=== PATIENT | female | born 1935 | race Caucasian/White ===

== ENCOUNTER 2018-01-01 12:45 | Inpatient (IN) ==
--- NOTE | 2018-01-01 13:56 | Emergency Department Note ---
Disposition Clinical Impression: GABY (acute kidney injury), Elevated troponin UTI (urinary tract infection) Qualifiers: Urinary tract infection type: site unspecified Hematuria presence: without hematuria Qualified Code(s): N39.0 - Urinary tract infection, site not specified Disposition: Admitted As Inpatient Condition: Good Referrals: Casi Smalls CNP [Primary Care Provider] - Forms: ED Satisfaction Letter General Adult HPI - General Chief complaint: ED Fall Stated complaint: bradycardia Time Seen by Provider: 01/01/18 13:40 Source: EMS Limitations: physical limitation Nursing Notes Reviewed: Yes Vital Signs Reviewed: Yes - History of Present Illness HPI Narrative: Patient presents today for evaluation of multiple complaints. She states that her home health aide told her that her vital signs were low. Her heart rate was in the 50s. Her blood pressure was systolically 112 and her pulse ox was in the mid 90s. The patient has recently been undergoing several different things she describes vomiting over the weekend which is now resolved. She described going to urgent care for a lesion on her finger which she was prescribed antibiotics as well as anti-inflammatories for. She states these symptoms have all resolved. She did have an episode of sliding down her bed onto her knees. There is no evidence of trauma. She did not hit her head she did not lose consciousness and she does not believe anything is broken or injured. There is no objective evidence of injury or need for further investigation. The patient states that she thought she had finally started feeling better but does not understand why her numbers are lower. She denies fevers or chills or chest pain or shortness of breath or abdominal pain and has not had any other episodes of vomiting. She states she is hungry and would like to eat. She has not had an increased swelling in her legs or any other signs of rash or infection. Pain Scale: 0 - Related Data Home Medications Medication Instructions Recorded Confirmed Clopidogrel [Plavix] 75 mg PO DAILY 07/03/16 07/03/16 Diltiazem HCl [Diltiazem ER] 120 mg PO 07/03/16 Furosemide [Lasix] 40 mg PO BID 07/03/16 07/03/16 Gabapentin [Neurontin] 100 mg PO BID 07/03/16 07/03/16 Insulin Glargine,Hum.rec.anlog 100 unit SQ 07/03/16 [Lantus Solostar] Levothyroxine [Synthroid] 25 mcg PO 30 07/03/16 07/03/16 Metoprolol [Lopressor] 50 mg PO BID 07/03/16 07/03/16 Timolol Maleate 0.25% [Timolol 1 drop RIGHT EYE BID 07/03/16 07/03/16 Maleate 0.25%] Ubidecarenone/Vitamin E [Co Q-10 1 each PO 07/03/16 50 mg Softgel] Previous Rx's Medication Instructions Recorded Hydrocodone/Acetaminophen [[place] 1 tab PO Q4H PRN #15 tab 07/03/16 5-325 Tablet] predniSONE [PredniSONE] 20 mg PO BIDWM #10 tablet 07/03/16 Allergies Allergy/AdvReac Type Severity Reaction Status Date / Time No Known Allergies Allergy Verified 07/03/16 12:26 Past Medical History - Past Medical History Medical history: Reports: cancer, diabetes, hypertension, myocardial infarction , renal disease Surgical history: Reports: cancer surgery, coronary bypass (CABG) Psychiatric history: Reports: no psych history 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 The patient also has acute kidney injury with doubling of her creatinine. GFR is down to 9. Patient initially did not want to stay due to the severity of her condition she is agreeable to fluids, antibiotics and admission. Hospitalist will be consult. Patient did have an elevated troponin but EKG does not show any specific signs for ACS and the patient has not had any chest pain. Aspirin will be given. - Consultations Consultation #1: Discussed with hospitalist. Patient accepted for admission. Vital Signs Temperature 97.2 F L 01/01/18 12:56 Pulse Rate 54 01/01/18 12:56 Respiratory Rate 16 01/01/18 12:56 Blood Pressure 135/48 01/01/18 12:56 O2 Sat by Pulse Oximetry 94 01/01/18 12:56 Temperature 97.2 F L 01/01/18 12:56 Pulse Rate 53 01/01/18 14:45 Respiratory Rate 16 01/01/18 14:45 Blood Pressure 134/75 01/01/18 14:45 O2 Sat by Pulse Oximetry 98 01/01/18 14:45 Oxygen Delivery Oxygen Delivery Room Air Medical Decision Making - Medical Records Medical records reviewed: Yes I reviewed the patient's medical records. - Lab Data Lab results reviewed: Yes I reviewed the patient's lab results. Result diagrams: 01/01/18 14:25 01/01/18 14:25 Lab Results 01/01/18 01/01/18 01/01/18 Range/Units 14:13 14:25 14:25 WBC 16.2 H (4.3-11.1) K/mcL RBC 3.79 L (3.82-4.97) M/mcL Hgb 11.0 L (11.5-15.4) g/dL Hct 33.3 L (35.3-44.9) % MCV 87.9 (83.0-100.0) fL MCH 29.0 (28.0-33.3) pg MCHC 33.0 (31.6-35.5) g/dL RDW 13.0 (11.5-14.5) % Plt Count 258 (140-400) K/mcL MPV 10.5 (9.4-12.4) fL Immature Gran % 0.4 (0-4) % Seg Neutrophils % 85.9 % Lymphocytes % 6.1 % Monocytes % 6.5 % Eosinophils % 0.9 % Basophils % 0.2 % Neutrophils # 13.9 H (1.6-8.9) K/mcL Lymphocytes # 1.0 (0.6-4.6) K/mcL Monocytes # 1.1 (0.0-1.3) K/mcL Eosinophils # 0.2 (0.0-0.6) K/mcL Basophils # 0.0 (0.0-0.2) K/mcL Sodium 133 L (136-145) mEq/L Potassium 4.8 (3.5-5.1) mEq/L Chloride 98 (98-107) mEq/L Carbon Dioxide 22 L (23-29) mEq/L BUN 105 H (8-23) mg/dL Creatinine 4.69 H (0.60-1.20) mg/dL Est GFR ( Amer) 11 L (> 60) Est GFR (Non-Af Amer) 9 L (> 60) BUN/Creatinine Ratio 22 (6-26) Glucose 176 H (70-105) mg/dL Calculated Osmolality 313 H (280-300) Calcium 9.5 (8.6-10.3) mg/dL Magnesium 2.3 (1.6-2.6) mg/dL Troponin I 0.07 H* (< 0.04) ng/mL TSH 1.503 (0.340-5.600) mcIU/mL Urine Color Dark Yellow (Yellow) Urine Clarity Cloudy A (Clear) Urine pH 5.5 (5.0-8.0) pH Units Ur Specific [place] 1.019 (1.010-1.025) Urine Protein Negative (Neg-Trace) mg/dL Urine Glucose (UA) Normal (Normal) mg/dL Urine Ketones Negative (Negative) mg/dL Urine Blood Negative (Negative) Urine Nitrite Negative (Negative) Urine Bilirubin Moderate H (Negative) Urine Urobilinogen Normal (Normal) mg/dL Ur Leukocyte Esterase Large H (Negative) Urine Microscopic RBC 0-3 (0-3) per hpf Urine Microscopic WBC TNTC H (0-3) per hpf Ur Squamous Epith Cells Many H (None-Few) per lpf Urine Bacteria Moderate H (None-Few) per hpf Hyaline Casts Few (None-Few) per lpf Ur Culture Indicated? NO. A (NO) - Radiology Data Radiology results reviewed: Yes I reviewed the patient's radiology results. - EKG Data EKG #1 EKG attestation: Yes I reviewed and interpreted this EKG. EKG results narrative: EKG shows sinus bradycardia with ventricular rate of 53. MD interval 191. QRS 131. QTC 405. Patient has no significant ST elevations or depressions. No previous EKG for comparison.
[2018-01-01 14:34] LABS: Basophils % 0.2 %; Eosinophils # 0.2 K/mcL (0.0-0.6); Eosinophils % 0.9 %; Hematocrit 33.3 % (35.3-44.9); Immature Granulocytes % 0.4 % (0-4); Lymphocytes % 6.1 %; Mean Corpuscular Volume 87.9 fL (83.0-100.0); Mean Platelet Volume 10.5 fL (9.4-12.4); Monocytes # 1.1 K/mcL (0.0-1.3); Monocytes % 6.5 %; Neutrophils # 13.9 K/mcL (1.6-8.9); Platelet Count 258 K/mcL (140-400); Red Blood Count 3.79 M/mcL (3.82-4.97); Segmented Neutrophils % 85.9 %
[2018-01-01 14:39] LABS: Bilirubin,Urine Moderate (Negative); Blood,Urine Negative (Negative); Clarity,Urine Cloudy (Clear); Color,Urine Dark Yellow (Yellow); Glucose,Urine (UA) Normal (Normal); Ketones,Urine Negative (Negative); Leukocyte Esterase,Urine Large (Negative); Nitrite,Urine Negative (Negative); PH,Urine 5.5 pH Units (5.0-8.0); Protein,Urine Negative (Neg-Trace); Specific Gravity,Urine 1.019 (1.010-1.025); Urobilinogen,Urine Normal (Normal)
[2018-01-01 14:41] LABS: Bacteria,Urine Moderate per hpf (None-Few); Hyaline Casts,Urine Few per lpf (None-Few); Squamous Epithelial Cell,Urine Many per lpf (None-Few); WBC,Urine TNTC per hpf (0-3)
[2018-01-01 15:02] LABS: RBC,Urine 0-3 per hpf (0-3)
[2018-01-01 15:02] LABS: Calcium 9.5 mg/dL (8.6-10.3); Magnesium 2.3 mg/dL (1.6-2.6); Potassium 4.8 mEq/L (3.5-5.1)
[2018-01-01 15:13] LABS: Troponin I 0.07 ng/mL (< 0.04)
[2018-01-01 15:15] LABS: Thyroid Stimulating Hormone 1.503 mcIU/mL (0.340-5.600)
[2018-01-01] MEDS ORDERED: cefTRIAXone 1,000 MG in Water for inj. (sterile) 20 ML 10 ML IVP ONE (15:18)
[2018-01-01] MEDS ORDERED: 0.9 % Sodium Chloride 1,000 ML IVC ONE (15:18)
[2018-01-01] MEDS ORDERED: Aspirin 81 MG TAB.CHEW PO STA (15:24)
[2018-01-01] MEDS ORDERED: Naloxone 0.4 MG/ML INJ IVP PRN (15:43)
[2018-01-01] MEDS ORDERED: 0.9 % Sodium Chloride 1,000 ML IVC SCH (15:45)
[2018-01-01] MEDS ORDERED: Dextrose Gel 15 GM/37.5 ML TUBE PO PRN ×2 (16:30)
[2018-01-01] MEDS ORDERED: *HR* Dextrose 50 % in Water (Syg) 50 ML SYRINGE IVP PRN (16:30)
[2018-01-01] MEDS ORDERED: D5% in Water 1,000 ML IVC PRN (16:30)
--- NOTE | 2018-01-01 16:37 | Internal Med History&Physical ---
Date of Encounter: 01/01/18 Time of Encounter: 16:30 Internal Medicine - H&P: HPI Chief complaint: fall, vomiting, feeling unwell History of present illness: Ms. Pickett is a 82 year old female with pmh of chronic kidney disease, hypertension, CABG presenting with complaintds of feeling unwell for the last couople of days. Patient has had occasional vomiting, severe lethargy and general malaise. she also had an episode of fall where she says she fell to her knees after her knees gave way. She says her home health took her vital signs with heart rate noted to be in the 50s and systolic BP was 112 and that's why she came to the ER. In the ER, she was noted to have a high WBC of 16 and urinalyis with WBCs as well as GABY on CKD. She will be admitted for further management Past Med Surg Social Fam HX - Past Medical History Medical history: cancer, diabetes, hypertension, myocardial infarction, renal disease Additional medical history: Gout Psychiatric history: no psych history - Past Surgical History Surgical History: cancer surgery, coronary bypass (CABG) - Social History Smoking Status: Former smoker Smokeless Tobacco Status: No Alcohol use: none Drug use: none Internal Medicine - H&P: Meds Clopidogrel [Plavix] 75 mg PO DAILY 07/03/16 [History] Diltiazem HCl [Diltiazem ER] 120 mg PO DAILY 07/03/16 [History] Furosemide [Lasix] 40 mg PO BID 07/03/16 [History] Gabapentin [Neurontin] 100 mg PO BID 07/03/16 [History] Levothyroxine [Synthroid] 25 mcg PO 0630 07/03/16 [History] Metoprolol [Lopressor] 50 mg PO BID 07/03/16 [History] Timolol Maleate 0.25% [Timolol Maleate 0.25%] 1 drop RIGHT EYE BID 07/03/16 [ History] Ubidecarenone/Vitamin E [Co Q-10 50 mg Softgel] 1 tab PO DAILY 07/03/16 [History ] Indomethacin [Indomethacin] 50 mg PO Q8H 01/01/18 [History] Insulin DETEMIR [Levemir] 30 units SQ DAILY 01/01/18 [History] Lisinopril [Lisinopril] 2.5 mg PO DAILY 01/01/18 [History] Sulfamethoxazole/Trimeth DS [Bactrim DS] 1 tab PO BID 01/01/18 [History] 3 Allergy/AdvReac Type Severity Reaction Status Date / Time No Known Allergies Allergy Verified 01/01/18 15:34 All Systems PM: A 10-system review of systems was performed and is negative for pertinent findings except as documented above in the HPI. - Constitutional Constitutional: as per HPI, no chills, no fever(s), no night sweats - EENT Eyes: no change in vision, no discharge, no pain, no photophobia Ears: no ear discharge, no ear pain, no tinnitus Nose, mouth and throat: no dysphagia, no nasal discharge, no neck pain, no sore throat - Cardiovascular Cardiovascular ROS IM: no chest pain, no diaphoresis, no dyspnea, no lightheadedness, no palpitations, no syncope - Respiratory Respiratory: no cough, no dyspnea, no wheezing, no excessive phlegm production - Gastrointestinal Gastrointestinal: no abdominal pain, no diarrhea, no hematemesis, no hematochezia, no melena, no nausea, no vomiting - Genitourinary Genitourinary: no change in urinary stream, no dysuria, no flank pain, no hematuria - Musculoskeletal Musculoskeletal ROS IM: no numbness, no tingling - Integumentary Integumentary IM: no rash, no unusual bruising - Neurological Neurological ROS: no confusion, no convulsions, no focal weakness, no numbness, no tingling, no tremor(s) - Hematologic/Lymphatic Hematologic/Lymphatic: no easy bruising - Constitutional Vitals: Temp Pulse Resp BP Pulse Ox 97.2 F L 53 16 134/75 98 01/01/18 12:56 01/01/18 14:45 01/01/18 14:45 01/01/18 14:45 01/01/18 14:45 - Head Head exam: Present: atraumatic, normocephalic - Eye Eye exam: Present: PERRL, conjuntiva pink, sclera anicteric Pupils: Present: PERRL - Neck Neck exam general surgery: Present: supple, trachea midline. Absent: lymphadenopathy - Respiratory Respiratory exam: Present: CTAB. Absent: accessory muscle use, rales, rhonchi, wheezes - Cardiovascular Cardiovascular exam: Present: RRR, +S1, +S2. Absent: diastolic murmur, gallop, rubs, systolic murmur - GI/Abdominal GI/Abdominal exam: Present: normal bowel sounds, soft, no peritoneal signs. Absent: distended, tenderness - Extremities Exam Extremities exam: Present: warm, radial pulses palpable and symmetrical. Absent : calf tenderness, cyanotic, pedal edema - Neurological Exam Neurological exam: Present: CN II-XII intact, oriented X3, no focal deficits. Absent: pronater drift, facial droop, speech deficit - Skin Skin exam: Present: dry, intact Internal Med - H&P Results - Labs CBC & Chem 7: 01/01/18 14:25 01/01/18 14:25 - Assessment and plan (1) UTI (urinary tract infection) Current Visit: Yes Status: Acute Assessment and plan: HAs a wbc of 16 with urinalysis showing numerous WBC. Started on ceftriaxone. Follow up blood and urine cultures Qualifiers: Urinary tract infection type: site unspecified Hematuria presence: without hematuria Qualified Code(s): N39.0 - Urinary tract infection, site not specified (2) GABY (acute kidney injury) Current Visit: Yes Status: Acute Assessment and plan: Start on IV fluids. Nephrology consult. Hold home dose of lasix and lisinopril (3) Elevated troponin Current Visit: Yes Status: Acute Assessment and plan: likely demand. No acute intervention (4) Diabetes mellitus Current Visit: Yes Status: Acute Assessment and plan: Continue insulin Qualifiers: Qualified Code(s): E11.9 - Type 2 diabetes mellitus without complications (5) DVT prophylaxis Current Visit: Yes Status: Acute Assessment and plan: Heparin (6) CAD (coronary artery disease) Current Visit: Yes Status: Acute Assessment and plan: Continue plavix and metoprolol Qualifiers: Qualified Code(s): I25.10 - Atherosclerotic heart disease of [place] coronary artery without angina pectoris - Time Spent With Patient Total time spent is greater than 50% in coordination of care (as documented) at patient's floor/unit and/or counseling patient:
[2018-01-01] MEDS: *HR* Heparin 5,000 UNIT/ML VIAL SQ SCH (18:38)
[2018-01-01] MEDS: Insulin LISPRO 300 UNITS/3 ML VIAL SQ SCH (18:38)
[2018-01-01] MEDS: 0.9 % Sodium Chloride 1,000 ML IVC SCH ×2 (18:44→23:19)
[2018-01-01] MEDS: Gabapentin 100 MG CAPSULE PO SCH (20:14)
[2018-01-01] MEDS: Insulin DETEMIR 100 UNIT/ML X5UNITS SQ SCH (20:15)
[2018-01-02] MEDS: Levothyroxine 25 MCG TABLET PO SCH (05:39)
[2018-01-02] MEDS: *HR* Heparin 5,000 UNIT/ML VIAL SQ SCH ×2 (05:39→17:09)
[2018-01-02 05:44] LABS: Basophils % 0.2 %; Eosinophils # 0.2 K/mcL (0.0-0.6); Eosinophils % 1.6 %; Hematocrit 30.1 % (35.3-44.9); Hemoglobin 10.1 g/dL (11.5-15.4); Immature Granulocytes % 0.5 % (0-4); Lymphocytes # 1.2 K/mcL (0.6-4.6); Lymphocytes % 8.8 %; Mean Corpuscular HGB Conc 33.6 g/dL (31.6-35.5); Mean Corpuscular Hemoglobin 29.7 pg (28.0-33.3); Mean Corpuscular Volume 88.5 fL (83.0-100.0); Mean Platelet Volume 11.4 fL (9.4-12.4); Monocytes # 0.8 K/mcL (0.0-1.3); Monocytes % 6.4 %; Neutrophils # 10.9 K/mcL (1.6-8.9); Platelet Count 247 K/mcL (140-400); Red Cell Distribution Width 12.9 % (11.5-14.5); Segmented Neutrophils % 82.5 %
[2018-01-02 06:13] LABS: Calcium 8.7 mg/dL (8.6-10.3); Magnesium 2.2 mg/dL (1.6-2.6); Phosphorous 4.2 mg/dL (2.7-4.5)
[2018-01-02] MEDS ORDERED: Insulin DETEMIR 100 UNIT/ML X5UNITS SQ SCH (09:00)
[2018-01-02] MEDS: Insulin LISPRO 300 UNITS/3 ML VIAL SQ SCH ×3 (09:17→17:09)
[2018-01-02] MEDS: UBIDECARENONE PO SCH (09:18)
[2018-01-02] MEDS: VITAMIN E PO SCH (09:18)
[2018-01-02] MEDS: Diltiazem CD (24hr) 120 MG CAPSULE PO SCH (09:26)
[2018-01-02] MEDS: Gabapentin 100 MG CAPSULE PO SCH ×2 (09:26→21:21)
[2018-01-02] MEDS: cefTRIAXone 1,000 MG in Water for inj. (sterile) 20 ML 10 ML IVP SCH (09:26)
--- NOTE | 2018-01-02 09:36 | Internal Med Progress Note ---
<Ernie Adams - Last Filed: 01/02/18 15:09> Date of Encounter: 01/02/18 Time of Encounter: 09:31 - Assessment and plan (1) UTI (urinary tract infection) Current Visit: Yes Status: Acute Assessment and plan: The patient mentioned and discussion that she had not been drinking water for several days. In an elderly female this could very well be the cause for urinary tract infection. The patient is currently receiving ceftriaxone for this infection. The plan will be to watch her white blood cell count as well as to repeat a urinalysis and watch her blood culture to monitor for resolution of this infection. Qualifiers: Urinary tract infection type: site unspecified Hematuria presence: without hematuria Qualified Code(s): N39.0 - Urinary tract infection, site not specified (2) GABY (acute kidney injury) Current Visit: Yes Status: Acute Assessment and plan: The patient presented with an elevated creatinine, much higher than her last known level. I believe this is due to acute kidney injury on top of her chronic kidney disease. In discussion the patient mentioned that she has not been drinking water for several days. This in combination with a UTI could very well be the reason for this acute kidney injury, the plan will be to continue to administer fluids and observe her creatinine for improvement. She also completed a recent course of Bactrim, and takes Indomethacin at home, which could have exacerbated her CKD. Lastly there could be an asymptomatic kidney stone cause post-renal distress, so we will get a reetroperitoneal US to rule this out. (3) Elevated troponin Current Visit: Yes Status: Acute Assessment and plan: I believe this elevated troponin is due to dehydration and infectious distress to the heart. Her troponin decreased from 0.07 to 0.05 in the time of her hospital stay. I am therefore not concerned about a true cardiac etiology. (4) Diabetes mellitus Current Visit: Yes Status: Acute Assessment and plan: This patient has controlled chronic DM for which she takes Levemir. We will maintain this. 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 (6) CAD (coronary artery disease) Current Visit: Yes Status: Acute Assessment and plan: This patient has chronic CAD controlled at home with plavix, cardizem, and metoprolol. we will place a limit on lopressor for the time being to address her asymptomatic sinus bradycardia. Qualifiers: Coronary Disease-Associated Artery/Lesion type: [place] artery [place] vs. transplanted heart: [place] heart Associated angina: without angina Qualified Code(s): I25.10 - Atherosclerotic heart disease of [place] coronary artery without angina pectoris (7) Bradycardia Current Visit: Yes Status: Acute Assessment and plan: Patient presented with asymptomatic sinus bradycardia in the 50s-60s on admission. She takes cardizem and lopressor at home for CAD, and may live with a HR in the 60s, however to be safe we will place a limit on metoprolol. - Time Spent With Patient Total time spent is greater than 50% in coordination of care (as documented) at patient's floor/unit and/or counseling patient: - Subjective Interval history: Isabela is an 82-year-old female who presented to the emergency department last evening for 3 days of vomiting lethargy and malaise. In the emergency department she was found to have a white blood cell count of 16 and white blood cells in her urinalysis. She also had an elevated troponin of 0.05. She was admitted for UTI and acute kidney injury, with elevated troponin. Upon seeing this patient this morning her vitals were stable and she was sitting up in bed eating breakfast. She complained of some weakness so I help her cut up her pancakes. She denied chest pain shortness of breath fever or chills or abdominal pain. - Constitutional Vitals: Temp Pulse Resp BP Pulse Ox 97.9 F 65 17 130/63 96 01/02/18 07:46 01/02/18 07:46 01/02/18 07:46 01/02/18 07:46 01/02/18 07:46 Exam: On exam the patient was alert and oriented to person place time and situation. Her heart was in regular rate and rhythm without murmur rub or gallop. Her lungs were clear to auscultation without adventitious sounds. Her upper extremities were 5 out of 5 strength. Her lower extremities were 4 out of 5 strength in hip flexion. She denied any pain upon test palpation to her abdomen. Her bowel sounds were normal. Skin was warm dry and intact. There were no open wounds upon examination. Internal Medicine: Result - Labs CBC & Chem 7: 01/02/18 04:58 01/02/18 04:58 Labs: Short CBC 01/02/18 Range/Units 04:58 WBC 13.2 H (4.3-11.1) K/mcL Hgb 10.1 L (11.5-15.4) g/dL Hct 30.1 L (35.3-44.9) % Plt Count 247 (140-400) K/mcL Neutrophils # 10.9 H (1.6-8.9) K/mcL BMP 01/02/18 04:58 Sodium 133 L Potassium 5.0 Chloride 102 Carbon Dioxide 22 L BUN 101 H Creatinine 4.36 H Glucose 139 H Calcium 8.7 Cardiac Enzymes 01/01/18 Range/Units 20:36 Troponin I 0.05 H* (< 0.04) ng/mL Consult Discharge Plan - Plan Referrals: Casi Smalls, FORESTRY BIOLOGY SPECIALIST [Primary Care Provider] - <Federica Velazquez - Last Filed: 01/02/18 17:51> Date of Encounter: 01/02/18 - Assessment and plan (1) GABY (acute kidney injury) Current Visit: Yes Status: Acute (2) Elevated troponin Current Visit: Yes Status: Acute (3) UTI (urinary tract infection) Current Visit: Yes Status: Acute Qualifiers: Urinary tract infection type: site unspecified Hematuria presence: without hematuria Qualified Code(s): N39.0 - Urinary tract infection, site not specified (4) Diabetes mellitus Current Visit: Yes Status: Acute Qualifiers: Diabetes mellitus type: type 2 Diabetes mellitus jail insulin use: without jail use Diabetes mellitus complication status: without complication Qualified Code(s): E11.9 - Type 2 diabetes mellitus without complications (5) DVT prophylaxis Current Visit: Yes Status: Acute (6) CAD (coronary artery disease) Current Visit: Yes Status: Acute Qualifiers: Coronary Disease-Associated Artery/Lesion type: [place] artery [place] vs. transplanted heart: [place] heart Associated angina: without angina Qualified Code(s): I25.10 - Atherosclerotic heart disease of [place] coronary artery without angina pectoris (7) Bradycardia Current Visit: Yes Status: Acute - Time Spent With Patient Total time spent is greater than 50% in coordination of care (as documented) at patient's floor/unit and/or counseling patient: - Constitutional Vitals: Temp Pulse Resp BP Pulse Ox 97.9 F 57 19 117/54 98 01/02/18 16:01 01/02/18 16:01 01/02/18 16:01 01/02/18 16:01 01/02/18 16:01 Internal Medicine: Result - Labs CBC & Chem 7: 01/02/18 04:58 01/02/18 04:58 Labs: Short CBC 01/02/18 Range/Units 04:58 WBC 13.2 H (4.3-11.1) K/mcL Hgb 10.1 L (11.5-15.4) g/dL Hct 30.1 L (35.3-44.9) % Plt Count 247 (140-400) K/mcL Neutrophils # 10.9 H (1.6-8.9) K/mcL BMP 01/02/18 04:58 Sodium 133 L Potassium 5.0 Chloride 102 Carbon Dioxide 22 L BUN 101 H Creatinine 4.36 H Glucose 139 H Calcium 8.7 Cardiac Enzymes 01/01/18 Range/Units 20:36 Troponin I 0.05 H* (< 0.04) ng/mL - Attending Attestation I examined this patient and my medical decision-making was reviewed with the Resident Physician. I agree with the documented findings, disposition and treatment plan as described except to the extent set forth below. Patient states she is doing better. On my exam she is in no acute distress, CVS , resp, and abdomen exams normal. Extremities are normal. Mucus membranes moist. 1. UTI 2. Acute kidney injury (Acute renal failure) on CKD stage 3 3. Elevated troponin 4. DM type 2 5. CAD 6. Asymptomatic Bradycardia 7. Hypertension - Leukocytosis improving, continue Rocephin, de escalate antibiotics, follow-up cultures - [facility] consulted. She sees Dr. Willis as OP but he no longer sees patients in hospital. - Continue supportive IV fluid as needed. Recheck BMP, avoid nephrotoxic medications. - No need to cycle troponin. She is asymptomatic and likely this is due to renal failure - Continue sliding scale and Levemir - On Plavix - Cardizem and Metoprolol continued with hold parameters for bradycardia.
[2018-01-02] MEDS: 0.9 % Sodium Chloride 1,000 ML IVC SCH ×2 (11:44→22:51)
[2018-01-02] MEDS: Insulin DETEMIR 100 UNIT/ML X5UNITS SQ SCH (21:21)
[2018-01-03] MEDS: *HR* Heparin 5,000 UNIT/ML VIAL SQ SCH ×2 (05:22→21:49)
[2018-01-03] MEDS: Levothyroxine 25 MCG TABLET PO SCH (05:22)
[2018-01-03] MEDS: Insulin LISPRO 300 UNITS/3 ML VIAL SQ SCH ×4 (08:24→20:40)
[2018-01-03] MEDS: UBIDECARENONE PO SCH (08:25)
[2018-01-03] MEDS: VITAMIN E PO SCH (08:25)
--- NOTE | 2018-01-03 08:38 | Electrocardiograph Report ---
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
[2018-01-03 08:48] LABS: Basophils % 0.2 %; Eosinophils # 0.2 K/mcL (0.0-0.6); Eosinophils % 1.9 %; Hematocrit 28.4 % (35.3-44.9); Hemoglobin 9.6 g/dL (11.5-15.4); Immature Granulocytes % 0.6 % (0-4); Lymphocytes # 1.4 K/mcL (0.6-4.6); Lymphocytes % 11.1 %; Mean Corpuscular HGB Conc 33.8 g/dL (31.6-35.5); Mean Corpuscular Volume 88.8 fL (83.0-100.0); Mean Platelet Volume 11.5 fL (9.4-12.4); Monocytes # 1.1 K/mcL (0.0-1.3); Monocytes % 8.9 %; Neutrophils # 9.7 K/mcL (1.6-8.9); Platelet Count 242 K/mcL (140-400); Red Cell Distribution Width 13.2 % (11.5-14.5); Segmented Neutrophils % 77.3 %
[2018-01-03] MEDS: Gabapentin 100 MG CAPSULE PO SCH ×2 (08:49→20:58)
[2018-01-03] MEDS: Diltiazem CD (24hr) 120 MG CAPSULE PO SCH (08:49)
[2018-01-03] MEDS: 0.9 % Sodium Chloride 1,000 ML IVC SCH (08:50)
[2018-01-03] MEDS: cefTRIAXone 1,000 MG in Water for inj. (sterile) 20 ML 10 ML IVP SCH (08:51)
[2018-01-03 09:08] LABS: Calcium 8.5 mg/dL (8.6-10.3); Potassium 4.3 mEq/L (3.5-5.1)
--- NOTE | 2018-01-03 09:41 | Internal Med Progress Note ---
<Ernie Adams - Last Filed: 01/03/18 13:27> Date of Encounter: 01/03/18 Time of Encounter: 09:37 - Assessment and plan (1) UTI (urinary tract infection) Current Visit: Yes Status: Acute Assessment and plan: Patient asymptomatic and improving, Continue rocephin, follow blood culture and white count Qualifiers: Urinary tract infection type: site unspecified Hematuria presence: without hematuria Qualified Code(s): N39.0 - Urinary tract infection, site not specified (2) GABY (acute kidney injury) Current Visit: Yes Status: Acute Assessment and plan: GABY on CKD#, nephrology has been consulted and is involved, we will continue IV fluids and monitor her BMP for improvement (3) Elevated troponin Current Visit: Yes Status: Acute Assessment and plan: This is likely due to renal failure, patient is asymptomatic, troponin decreased after admission, will not cycle (4) Bradycardia Current Visit: Yes Status: Acute Assessment and plan: This is asymptomatic and likely the patients baseline as she is on cardizem and metoprolol, which we will continue with hold parameters (5) Diabetes mellitus Current Visit: Yes Status: Acute Assessment and plan: chronic and controlled on levemir, sliding scale added during admission Qualifiers: Diabetes mellitus type: type 2 Diabetes mellitus long term care pharmacist insulin use: without long term care pharmacist use Diabetes mellitus complication status: without complication Qualified Code(s): E11.9 - Type 2 diabetes mellitus without complications (6) DVT prophylaxis Current Visit: Yes Status: Acute Assessment and plan: This patient is recieving heparin for DVT prophylaxis while in the hospital (7) CAD (coronary artery disease) Current Visit: Yes Status: Acute Assessment and plan: Chronic and controlled with plavix, cardizem, metoprolol Qualifiers: Coronary Disease-Associated Artery/Lesion type: [place] artery [place] vs. transplanted heart: [place] heart Associated angina: without angina Qualified Code(s): I25.10 - Atherosclerotic heart disease of [place] coronary artery without angina pectoris (8) Acute decompensated heart failure Current Visit: Yes Status: Acute Assessment and plan: Patient complained of chest pain after exertion of bed transfer, patient examined, EKG performed, no new acute abnormalities found, physical exam indicated fluid overload, fluids were held, stat CXR showed mild interstitial infiltrate, troponin was elevated to 0.11 which I attribute to fluid overload and GABY, will reorder troponin in 6 hours, nitro was ordered PRN, GI cocktal given, BiPAP ordered. On repeat examination patient statedher chest pain was gone. Echocardiogram is pending. Will continue to monitor. - Time Spent With Patient Total time spent is greater than 50% in coordination of care (as documented) at patient's floor/unit and/or counseling patient: - Subjective Interval history: Isabela was sitting up in bed eating breakfast this morning. Her only complaint was fatigue and weakness. She has also had diarrhea for two days. She denies chest pain, shortness of breath, headache, nausea or vomiting, or abdominal pain. - Constitutional Vitals: Temp Pulse Resp BP Pulse Ox 97.7 F 67 14 114/63 97 01/03/18 08:15 01/03/18 08:15 01/03/18 08:15 01/03/18 08:15 01/03/18 09:02 Exam: Patient is alert and oriented x3, in no acute distress Heart is in regular rate and rhythm without murmur or rodrick Lungs were clear to auscultation bilaterally Abdomen soft and nontender Skin warm, dry and intact Internal Medicine: Result - Labs CBC & Chem 7: 01/03/18 07:40 01/03/18 07:40 Labs: Short CBC 01/03/18 Range/Units 07:40 WBC 12.6 H (4.3-11.1) K/mcL Hgb 9.6 L (11.5-15.4) g/dL Hct 28.4 L (35.3-44.9) % Plt Count 242 (140-400) K/mcL Neutrophils # 9.7 H (1.6-8.9) K/mcL BMP 01/03/18 07:40 Sodium 135 L Potassium 4.3 Chloride 109 H Carbon Dioxide 19 L BUN 91 H Creatinine 3.47 H Glucose 51 L Calcium 8.5 L Consult Discharge Plan - Plan Referrals: Casi Smalls, FLAQUITA [Primary Care Provider] - <Federica Velazquez - Last Filed: 01/03/18 15:33> Date of Encounter: 01/03/18 - Assessment and plan (1) GABY (acute kidney injury) Current Visit: Yes Status: Acute (2) Elevated troponin Current Visit: Yes Status: Acute (3) UTI (urinary tract infection) Current Visit: Yes Status: Acute Qualifiers: Urinary tract infection type: site unspecified Hematuria presence: without hematuria Qualified Code(s): N39.0 - Urinary tract infection, site not specified (4) Diabetes mellitus Current Visit: Yes Status: Acute Qualifiers: Diabetes mellitus type: type 2 Diabetes mellitus long term care pharmacist insulin use: without long term care pharmacist use Diabetes mellitus complication status: without complication Qualified Code(s): E11.9 - Type 2 diabetes mellitus without complications (5) DVT prophylaxis Current Visit: Yes Status: Acute (6) CAD (coronary artery disease) Current Visit: Yes Status: Acute Qualifiers: Coronary Disease-Associated Artery/Lesion type: [place] artery [place] vs. transplanted heart: [place] heart Associated angina: without angina Qualified Code(s): I25.10 - Atherosclerotic heart disease of [place] coronary artery without angina pectoris (7) Bradycardia Current Visit: Yes Status: Acute (8) Acute decompensated heart failure Current Visit: Yes Status: Acute - Time Spent With Patient Total time spent is greater than 50% in coordination of care (as documented) at patient's floor/unit and/or counseling patient: - Constitutional Vitals: Temp Pulse Resp BP Pulse Ox 97.8 F 72 16 123/66 94 01/03/18 11:48 01/03/18 11:48 01/03/18 11:48 01/03/18 11:48 01/03/18 11:48 Internal Medicine: Result - Labs CBC & Chem 7: 01/03/18 07:40 01/03/18 07:40 Labs: Short CBC 01/03/18 Range/Units 07:40 WBC 12.6 H (4.3-11.1) K/mcL Hgb 9.6 L (11.5-15.4) g/dL Hct 28.4 L (35.3-44.9) % Plt Count 242 (140-400) K/mcL Neutrophils # 9.7 H (1.6-8.9) K/mcL BMP 01/03/18 07:40 Sodium 135 L Potassium 4.3 Chloride 109 H Carbon Dioxide 19 L BUN 91 H Creatinine 3.47 H Glucose 51 L Calcium 8.5 L Cardiac Enzymes 01/03/18 Range/Units 11:46 Troponin I 0.11 H* (< 0.04) ng/mL - Impressions Impressions Chest X-Ray 01/03/18 12:00 IMPRESSION: Mild interstitial changes throughout the lungs, likely mild interstitial edema versus infiltrate. D/ / Jeremy Colbert MD / Jeremy Colbert MD Interpreting Provider: Jeremy Colbert MD - Attending Attestation I examined this patient and my medical decision-making was reviewed with the Resident Physician. I agree with the documented findings, disposition and treatment plan as described except to the extent set forth below. Patient had fluid overload today requiring IV fluids to be discontinued. She complained of chest pain around noon along with dyspnea. An EKG was done that showed no significant change since previous EKG. Chest x-ray showed Edema. Troponin borderline elevated 0.11, was 0.05 on admission. She is now chest pain free. On exam patient did have rales in both lung rice at bases. Air exchange is fair. CVS exam unremarkable. Extremities show bipedal edema, abdominal exam normal. WBC improving now to 12.6k, VS reviewed and stable. Blood cultures and urine cultures from 01/01/18 are no growth to date. A/P: UTI causing weakness Acute on chronic kidney disease CHF exacerbation secondary to fluid overload Chest pain CAD s/p CABG Diabetes type II history of [place] Hypertension. - Continue Rocephin, follow-up blood and urine cultures. WBC improving, afebrile. - Nephrology consulted. Today we held fluids because patient acutely became fluid overloaded. Continue to avoid nephrotoxic medications - Fluids held, Lasix cannot be given because of GABY/CKD, Echocardiogram ordered. - Bipap if patient becomes acutely short of breath. - Cycle cardiac enzymes. Troponin went from 0.07, 0.05, now slight elevation 0.11. This may be secondary to renal failure and/or demand ischemia possible. Repeat troponin in 6 hours. If concern for cardiac ischemia, will place patient on heparin drip. - Continue Plavix
[2018-01-03] MEDS ORDERED: Nitroglycerin 0.4 MG TAB.SUBL SL PRN (12:01)
[2018-01-03] MEDS ORDERED: GI Cocktail 40 ML EACH PO ONE (12:01)
[2018-01-03] MEDS ORDERED: 0.9 % Sodium Chloride 1,000 ML IVC SCH (14:30)
--- NOTE | 2018-01-03 14:37 | Nephrology Consult Note ---
<Tila Fair - Last Filed: 01/03/18 14:42> Date of Encounter: 01/03/18 Time of Encounter: 14:25 Assessment and Plan (1) GABY (acute kidney injury) Current Visit: Yes Status: Acute Serum and urine studies ordered. Encouraged PO intake. NS 60/hr ordered. Retroperitoneal US ordered. Baseline GFR appears to be 25 is 13 today. Scr 3.47 down from 4.36. Continue to avoid nephrotoxins and renal dose all medications. Agree with holding Lisinopril and Lasix. (2) Bradycardia Current Visit: Yes Status: Acute HR was in the 50's in the ED, seems resolved is in the 70's now. (3) UTI (urinary tract infection) Current Visit: Yes Status: Acute Per primary. Qualifiers: Urinary tract infection type: site unspecified Hematuria presence: without hematuria Qualified Code(s): N39.0 - Urinary tract infection, site not specified History of Present Illness - Reason for Consult Consult date: 01/03/18 Acute Kidney Injury - Chief Complaint bradycardia - History of Present Illness Ms. Pickett is an 82 year old female with CKD 3 with a history of a GFR of 25. PMH: diabetes, hypertension, myocardial infarction, and CABG. She presented to the ED with nausea and vomiting with advice from her home health nurse. Pt appears wear and is not a great historian. Denies shortness of breath and chest pain. The patients GABY is multifactorial in the setting of CKD and was taking Bacrim, Indomethacin, Lasix, and Lisinopril at home. Will order CPK, uric acid, urine studies and will restart NS at 60/hr. Retroperitoneal US ordered by primary team. Past Med Surg Social Fam HX - Past Medical History Medical history: cancer, diabetes, hypertension, myocardial infarction, renal disease Additional medical history: Gout Psychiatric history: no psych history - Past Surgical History Surgical History: cancer surgery, coronary bypass (CABG) - Social History Smoking Status: Former smoker Smokeless Tobacco Status: No Alcohol use: none Drug use: none Medications and Allergies Clopidogrel [Plavix] 75 mg PO DAILY 07/03/16 [History] Diltiazem HCl [Diltiazem ER] 120 mg PO DAILY 07/03/16 [History] Furosemide [Lasix] 40 mg PO BID 07/03/16 [History] Gabapentin [Neurontin] 100 mg PO BID 07/03/16 [History] Levothyroxine [Synthroid] 25 mcg PO 0630 07/03/16 [History] Metoprolol [Lopressor] 50 mg PO BID 07/03/16 [History] Timolol Maleate 0.25% [Timolol Maleate 0.25%] 1 drop RIGHT EYE BID 07/03/16 [ History] Ubidecarenone/Vitamin E [Co Q-10 50 mg Softgel] 1 tab PO DAILY 07/03/16 [History ] Indomethacin [Indomethacin] 50 mg PO Q8H 01/01/18 [History] Insulin DETEMIR [Levemir] 30 units SQ DAILY 01/01/18 [History] Lisinopril [Lisinopril] 2.5 mg PO DAILY 01/01/18 [History] Sulfamethoxazole/Trimeth DS [Bactrim DS] 1 tab PO BID 01/01/18 [History] 3 Allergy/AdvReac Type Severity Reaction Status Date / Time No Known Allergies Allergy Verified 01/01/18 15:34 Review of Systems ROS unobtainable: due to mental status Exam - Vital Signs Vital signs: Initial Vital Signs Temp Pulse Resp BP Pulse Ox 97.2 F L 54 16 135/48 94 01/01/18 12:56 01/01/18 12:56 01/01/18 12:56 01/01/18 12:56 01/01/18 12:56 Vital Signs - Last 8 Hours Temp Pulse Resp BP Pulse Ox 01/03/18 11:48 97.8 F 72 16 123/66 94 01/03/18 09:02 97 01/03/18 08:15 97.7 F 67 14 114/63 97 Intake and Output 01/02/18 01/03/18 01/03/18 23:59 07:59 15:59 Intake Total 1240 / 1240 1480 / 1480 Output Total 500 / 500 500 / 500 Balance 740 / 740 980 / 980 Intake: IV Fluids 1000 / 1000 1000 / 1000 0.9 % Sodium Chloride 1,000 ML 1000 / 1000 1000 / 1000 @ 100 mls/hr IVC .Q10H CHARLY Rx#: [id number] Oral 240 / 240 480 / 480 Output: Urine 500 / 500 500 / 500 Other: Meal Dinner Breakfast Percent of Meal Consumed 95% 50% Stool Size Large Stool Consistency soft Stool Color Brown # Voids 2 1 # Bowel Movements 1 Weight 73.1 kg Blood Glucose* 182 109 Patient Weight 01/03/18 23:59 Weight 73.1 kg - General Appearance General appearance: frail EENT: ATNC, hearing intact, vision intact Neck: supple Respiratory: clear Cardiology: no edema, normal S1, normal S2 Gastrointestinal: normoactive bowel sounds, no tenderness, no guarding Integumentary: no rash, warm and dry Neurologic: alert and oriented x3 (very drowsy, awakes easily.) Psychiatric: mood/affect appropriate, cooperative Results - Lab Results 01/03/18 07:40 01/03/18 07:40 Most recent lab results Calcium 8.5 mg/dL (8.6-10.3) L 01/03/18 07:40 Phosphorus 4.2 mg/dL (2.7-4.5) 01/02/18 04:58 Magnesium 2.2 mg/dL (1.6-2.6) 01/02/18 04:58 Consult Discharge Plan - Plan Referrals: Casi Smalls CNP [Primary Care Provider] - <Vivi Flores - Last Filed: 01/03/18 15:59> Date of Encounter: 01/03/18 Exam - Vital Signs Vital signs: Initial Vital Signs Temp Pulse Resp BP Pulse Ox 97.2 F L 54 16 135/48 94 01/01/18 12:56 01/01/18 12:56 01/01/18 12:56 01/01/18 12:56 01/01/18 12:56 Vital Signs - Last 8 Hours Temp Pulse Resp BP Pulse Ox 01/03/18 11:48 97.8 F 72 16 123/66 94 01/03/18 09:02 97 01/03/18 08:15 97.7 F 67 14 114/63 97 Intake and Output 01/02/18 01/03/18 01/03/18 23:59 07:59 15:59 Intake Total 1240 / 1240 1480 / 1480 Output Total 500 / 500 500 / 500 Balance 740 / 740 980 / 980 Intake: IV Fluids 1000 / 1000 1000 / 1000 0.9 % Sodium Chloride 1,000 ML 1000 / 1000 1000 / 1000 @ 100 mls/hr IVC .Q10H CHARLY Rx#: [id number] Oral 240 / 240 480 / 480 Output: Urine 500 / 500 500 / 500 Other: Meal Dinner Breakfast Percent of Meal Consumed 95% 50% Stool Size Large Stool Consistency soft Stool Color Brown # Voids 2 1 # Bowel Movements 1 Weight 73.1 kg Blood Glucose* 182 109 Patient Weight 01/03/18 23:59 Weight 73.1 kg Results - Lab Results 01/03/18 07:40 01/03/18 07:40 Most recent lab results Calcium 8.5 mg/dL (8.6-10.3) L 01/03/18 07:40 Phosphorus 4.2 mg/dL (2.7-4.5) 01/02/18 04:58 Magnesium 2.2 mg/dL (1.6-2.6) 01/02/18 04:58 - Attending Attestation I examined this patient and my medical decision-making was reviewed with the Resident Physician/CATTLE FEEDER. I agree with the documented findings, disposition and treatment plan as described except to the extent set forth below. Pt seen and examined and in brief is a 82 y o female with PMH of HTN and CAD s/ p CABG admitted with lethargy and N?V s/p fall with bradycardia with HR in the 50s. SCr noted at 4.69, GFR 9 with baseline noted at 1.85, GFR 26 previously. Pt is a poor historian and most of the info obtained from the records but she does admit to poor po intake/ She was also taking lasix, liisnopril and indomethacin and apparently just finished bactrim. Etiology of GABY likely mutifactorial. Will continue IVF for now as po intake still remains questionable while we pursue workup. Avoid nephrotoxins if possible. Scr slightly improved today hence no acute indication for BLEACH CHLORINATOR at this time.
[2018-01-03] MEDS ORDERED: *HR* Heparin 5,000 UNIT/ML VIAL IVP ONE (18:45)
[2018-01-03] MEDS ORDERED: Heparin 25,000 UNIT/500 ML D5W 25,000 UNIT/500 ML BAG IVC SCH (18:45)
[2018-01-03] MEDS ORDERED: *HR* Heparin 5,000 UNIT/ML VIAL IVP PRN ×2 (18:45)
[2018-01-03 19:18] LABS: Hematocrit 32.4 % (35.3-44.9); Hemoglobin 10.7 g/dL (11.5-15.4); Mean Corpuscular Hemoglobin 29.3 pg (28.0-33.3); Mean Corpuscular Volume 88.8 fL (83.0-100.0); Mean Platelet Volume 10.9 fL (9.4-12.4); Platelet Count 268 K/mcL (140-400); Red Blood Count 3.65 M/mcL (3.82-4.97); Red Cell Distribution Width 13.2 % (11.5-14.5)
[2018-01-03 19:25] LABS: Prothrombin Time 11.7 Seconds (9.4-12.1)
[2018-01-03 19:28] LABS: Activated Partial Thrombo Time 26.6 Seconds (26.0-36.0)
[2018-01-04 02:08] LABS: Basophils # 0.1 K/mcL (0.0-0.2); Basophils % 0.4 %; Eosinophils # 0.3 K/mcL (0.0-0.6); Eosinophils % 2.3 %; Hematocrit 27.8 % (35.3-44.9); Hemoglobin 9.3 g/dL (11.5-15.4); Immature Granulocytes % 0.7 % (0-4); Lymphocytes # 1.6 K/mcL (0.6-4.6); Lymphocytes % 12.6 %; Mean Corpuscular HGB Conc 33.5 g/dL (31.6-35.5); Mean Corpuscular Hemoglobin 29.3 pg (28.0-33.3); Mean Corpuscular Volume 87.7 fL (83.0-100.0); Mean Platelet Volume 10.9 fL (9.4-12.4); Monocytes % 7.9 %; Neutrophils # 9.7 K/mcL (1.6-8.9); Platelet Count 245 K/mcL (140-400); Red Blood Count 3.17 M/mcL (3.82-4.97); Red Cell Distribution Width 13.4 % (11.5-14.5); Segmented Neutrophils % 76.1 %
[2018-01-04 02:26] LABS: Calcium 8.9 mg/dL (8.6-10.3); Potassium 4.8 mEq/L (3.5-5.1)
[2018-01-04] MEDS: Levothyroxine 25 MCG TABLET PO SCH (06:07)
[2018-01-04] MEDS: Insulin LISPRO 300 UNITS/3 ML VIAL SQ SCH ×4 (07:03→20:48)
[2018-01-04] MEDS: Insulin DETEMIR 100 UNIT/ML X5UNITS SQ SCH ×2 (07:57→12:04)
[2018-01-04] MEDS: Diltiazem CD (24hr) 120 MG CAPSULE PO SCH (08:04)
[2018-01-04] MEDS: Gabapentin 100 MG CAPSULE PO SCH ×2 (08:04→20:44)
[2018-01-04] MEDS: cefTRIAXone 1,000 MG in Water for inj. (sterile) 20 ML 10 ML IVP SCH (08:05)
--- NOTE | 2018-01-04 11:36 | Cardiology Consult Note ---
<Cynthia Henderson - Last Filed: 01/04/18 11:33> Date of Encounter: 01/04/18 Time of Encounter: 08:30 Assessment and Plan (1) GABY (acute kidney injury) Current Visit: Yes Status: Acute Per cardiology: -Creatinine 4.69 on admission, currently 3.05. -Appears baseline around 1.4-1.9. -Management per primary service. (2) Elevated troponin Current Visit: Yes Status: Acute Per cardiology: -Troponins 0.07, 0.05, 0.11, 0.3, 0.58 in the setting of GABY, UTI. -Denies chest pain. -ECG with no acute ischemic changes noted from previous ECG (2016). -TTE with LVEF 60%, no segmental wall motion abnormalities noted. -ON plavix, BB, Heparin drip. -Do not suspect NSTEMI, suspect demand ischemia related to above. No cardiac rehab consult warranted -Will start ASA, statin. -Will repeat troponin, if troponin down trending, will stop heparin drip. (3) CAD (coronary artery disease) Current Visit: Yes Status: Chronic Per cardiology: -Known CAD s/p CABG 12 years ago at [place]. -Denies chest pain. -Will start asa, statin. Qualifiers: Coronary Disease-Associated Artery/Lesion type: [place] artery [place] vs. transplanted heart: [place] heart Associated angina: without angina Qualified Code(s): I25.10 - Atherosclerotic heart disease of [place] coronary artery without angina pectoris Discussion w patient/family: The assessment and plan as outlined above was discussed with the patient who expressed understanding and agreement. All questions were answered. Thank you for involving us in the care of your patient. Please call with any questions. Discussed and reviewed with . History of Present Illness Consult date: 01/03/18 Requesting physician: Federica Velazquez Consult reason: chest pain, elevated troponin Chief complaint: "sick" History of present illness: Ms. Pickett is a 82 year old female with a relevant past medical history of CAD s/p CABG 12 years ago, DM, HTN, renal disease who presented to [facility] with complaints of "just not feeling well." Patient states she was just laying around the house not able to get up much and her family convinced her to come to ER. Patient denies chest pain. Patient reports some occasional shortness of breath, however states is about baseline. Reports increased fatigue. Past Med Surg Social Fam HX - Past Medical History Attestation: Yes The following information was validated with the patient. Source: patient, old records reviewed Medical history: cancer, coronary artery disease, diabetes, hypertension, myocardial infarction, renal disease Additional medical history: Gout Psychiatric history: no psych history - Past Surgical History Surgical History: cancer surgery, coronary bypass (CABG) - Social History Smoking Status: Former smoker Smokeless Tobacco Status: No Alcohol use: none Drug use: none Medications and Allergies Clopidogrel [Plavix] 75 mg PO DAILY 07/03/16 [History] Diltiazem HCl [Diltiazem ER] 120 mg PO DAILY 07/03/16 [History] Furosemide [Lasix] 40 mg PO BID 07/03/16 [History] Gabapentin [Neurontin] 100 mg PO BID 07/03/16 [History] Levothyroxine [Synthroid] 25 mcg PO 0630 07/03/16 [History] Metoprolol [Lopressor] 50 mg PO BID 07/03/16 [History] Timolol Maleate 0.25% [Timolol Maleate 0.25%] 1 drop RIGHT EYE BID 07/03/16 [ History] Ubidecarenone/Vitamin E [Co Q-10 50 mg Softgel] 1 tab PO DAILY 07/03/16 [History ] Indomethacin [Indomethacin] 50 mg PO Q8H 01/01/18 [History] Insulin DETEMIR [Levemir] 30 units SQ DAILY 01/01/18 [History] Lisinopril [Lisinopril] 2.5 mg PO DAILY 01/01/18 [History] Sulfamethoxazole/Trimeth DS [Bactrim DS] 1 tab PO BID 01/01/18 [History] 3 Allergy/AdvReac Type Severity Reaction Status Date / Time No Known Allergies Allergy Verified 01/01/18 15:34 All Systems Review: The remainder of the systems were reviewed and are negative - Constitutional Constitutional: lethargy - Cardiovascular Cardiovascular: as per HPI Physical Examination Vital Signs, Last 4 Hours Temp Pulse Resp BP Pulse Ox 01/04/18 08:18 95 01/04/18 07:48 97.4 F L 69 15 138/76 95 General: Conversant, No Apparent Distress HEENT: Atraumatic, Normocephaly, Mucus Membranes Moist Neck: No JVD, Normal carotid pulses Cardiac: Reg Rate and Rhythm, Normal S1 and S2, No Murmur Lungs: Normal Breath Sounds, No Wheeze, Rales, Rhonchi Neuro: Alert and responsive, No focal deficits noted Abdomen: Soft, Non-Tender Skin: No rashes noted on visualized skin Musculoskeletal: No Chest Wall Tenderness Extremities: No Clubbing, No Cyanosis, No Edema, Normal Pulses Results 01/04/18 01:52 01/04/18 01:52 Lab Results Impressions Chest X-Ray 01/03/18 12:00 IMPRESSION: Mild interstitial changes throughout the lungs, likely mild interstitial edema versus infiltrate. D/ / Jeremy Colbert MD / Jeremy Colbert MD Interpreting Provider: Jeremy Colbert MD Echocardiogram 01/03/18 12:37 Impressions: LVEF 60%. Normal LV chamber size, wall thickness and function. Moderate left ventricular diastolic dysfunction. Atypical septal motion consistent with post-operative status. Normal right ventricular structure and function. Mild mitral regurgitation. Mild tricuspid regurgitation. Moderate pulmonary hypertension. Estimated RVSP is 50 mmHg. Left Ventricular Wall Motion: Rest Echo Findings All wall segments showed normal motion. Findings: Study Quality * Technically adequate exam. ECG Findings * Normal sinus rhythm. Left Ventricle * LVEF 60%. * Normal LV chamber size, wall thickness and function. * Moderate left ventricular diastolic dysfunction. * Atypical septal motion consistent with post-operative status. Right Ventricle * Normal right ventricular structure and function. Left Atrium * Mildly dilated left atrium. Right Atrium * Normal right atrial size. Aortic Valve * Trileaflet aortic valve. * Mildly sclerotic aortic valve leaflets. * No aortic regurgitation. * No aortic stenosis. Mitral Valve * Mild mitral annular calcification * Mild mitral regurgitation. * No mitral stenosis. Tricuspid Valve * Normal tricuspid valve structure. * Mild tricuspid regurgitation. * Moderate pulmonary hypertension. * Estimated RVSP is 50 mmHg. * Estimated RA pressure is 5 mmHg. Pulmonic Valve * Normal pulmonic valve structure and function. * No pulmonic regurgitation. Aorta * Normally sized aortic root. Pericardium * The pericardium appears normal. IVC * Normal IVC dimensions and inspiratory collapse. Pulmonary Artery * Normal visualized portions of the main pulmonary artery. Retroperitoneum Ultrasound 01/03/18 17:00 IMPRESSION: 1. No obstructive uropathy. 2. Postvoid residual in the urinary bladder of approximately 497 mL. D/ / Anil Lopez MD / Anil Lopez MD Interpreting Provider: Anil Lopez MD Active Medications Clopidogrel Bisulfate (Plavix) 75 mg PO DAILY CHARLY Stop: 07/04/18 09:01 Last Admin: 01/04/18 08:04 Dose: 75 mg Dextrose/Water (Dextrose 50% (Syg)) 25 ml IVP AD PRN PRN Reason: Hypoglycemia Stop: 07/03/18 16:31 Diltiazem HCl (Cardizem Cd) 120 mg PO DAILY CHARLY Stop: 07/04/18 09:01 Last Admin: 01/04/18 08:04 Dose: 120 mg Gabapentin (Neurontin) 100 mg PO BID CHARLY Stop: 07/03/18 21:01 Last Admin: 01/04/18 08:04 Dose: 100 mg Glucagon (Glucagen) 1 mg IM ONCE PRN PRN Reason: Hypoglycemia Stop: 07/03/18 16:31 Glucose (Gluctose) 15 gm PO ONCE PRN PRN Reason: Hypoglycemia Stop: 07/03/18 16:31 Glucose (Gluctose) 30 gm PO ONCE PRN PRN Reason: Hypoglycemia Stop: 07/03/18 16:31 Heparin Sodium (Porcine) (Heparin) 4,000 unit IVP Q6HR PRN PRN Reason: SEE COMMENTS Stop: 07/05/18 18:46 Heparin Sodium (Porcine) (Heparin) 2,000 unit IVP Q6H PRN PRN Reason: SEE COMMENTS Stop: 07/05/18 18:46 Ceftriaxone Sodium 1,000 mg/ (Sterile Water) 10 mls @ 600 mls/hr IVP DAILY CHARLY Stop: 07/04/18 09:01 Last Admin: 01/04/18 08:05 Dose: 600 mls/hr Dextrose (Dextrose 5%) 1,000 mls @ 100 mls/hr IVC .Q10H PRN PRN Reason: HYPOGLYCEMIA Stop: 07/03/18 16:31 Heparin Sodium/Dextrose (Heparin 25,000 Unit/500 Ml D5w) 25,000 unit in 500 mls @ 17.544 mls/hr IVC .Q24H CHARLY; 12 UNIT/KG/HR PRN Reason: Protocol Stop: 07/05/18 18:46 Last Titration: 01/04/18 09:23 Dose: 12 unit/kg/hr, 17.544 mls/hr Insulin Detemir (Levemir) 30 unit SQ QAM [facility] Stop: 07/06/18 09:01 Last Admin: 01/04/18 07:57 Dose: Not Given Insulin Human Lispro (Humalog) 0 units SQ TIDAC [facility] PRN Reason: Protocol Stop: 07/03/18 16:31 Last Admin: 01/04/18 07:03 Dose: Not Given Insulin Human Lispro (Humalog) 0 units SQ HS [facility] PRN Reason: Protocol Stop: 07/05/18 21:01 Last Admin: 01/03/18 20:40 Dose: Not Given Levothyroxine Sodium (Synthroid) 25 mcg PO 0630 [facility] Stop: 07/04/18 06:31 Last Admin: 01/04/18 06:07 Dose: 25 mcg Metoprolol Tartrate (Lopressor) 50 mg PO BID [facility] Stop: 07/03/18 21:01 Last Admin: 01/04/18 08:05 Dose: 50 mg Naloxone HCl (Narcan) 0.4 mg IVP Q2MIN PRN PRN Reason: SEE COMMENTS Stop: 07/03/18 15:44 Nitroglycerin (Nitroglycerin) 0.4 mg SL Q5MIN PRN PRN Reason: Chest Pain Stop: 07/05/18 12:02 Timolol Maleate (Timolol Maleate 0.25%) 1 drop RIGHT EYE BID [facility] PRN Reason: Protocol Stop: 07/03/18 21:01 Last Admin: 01/04/18 08:12 Dose: 1 drop Laboratory Tests 09/30/15 07/03/16 01/01/18 04:21 12:58 14:25 WBC Hgb Creatinine 1.42 H 1.85 H 4.69 H Troponin I 0.07 H* 01/01/18 01/03/18 01/03/18 20:36 11:46 17:28 WBC Hgb Creatinine Troponin I 0.05 H* 0.11 H* 0.30 H* 01/03/18 01/04/18 01/04/18 23:02 01:52 01:52 WBC 12.7 H Hgb 9.3 L Creatinine 3.05 H Troponin I 0.58 H* - Imaging and Cardiology Chest Xray: report reviewed Echo: report reviewed - EKG Interpretation EKG results cardiology: personally reviewed (ECG with SB, HR 53. LBBB, PACs noted.), other (Telemetry reviewed with average HR previous 12 hours noted to be 60, SR. PACs noted.) Consult Discharge Plan - Plan Referrals: Casi Smalls, MEDICAID BILLING CLERK [Primary Care Provider] - <Obdulio Taylor - Last Filed: 01/04/18 12:52> Date of Encounter: 01/04/18 - Attending Attestation I have personally performed a face to face evaluation on this patient. I have reviewed and agree with the care plan. History and Exam by me shows: CC: Tired HPI: Pt reports two month history of progressive fatique, has more tired, less active due to lack of energy. She denies chest pain, pressure or shortness of breath at rest, although does admit to shortness of breath with exertion. She notes slight increase in lower extremity edema at the end of the day which resolves overnight. She has Cx CAD, post CABG 2005 at [place], 3 vessel bypass, reports had exertional chest pain before procedure which resolved following procedure. She denies palpitations, vertigo, near syncope, true syncope. PMH: reviewed ROS: Reviewed LABs/Xrays reviewed, slight elevation of troponin which is now trending down. PE: PT seen and examined, agree with findings as documented. IMP:PLan: 1. Elevated troponin: suspect due to demand ischemia, no reocurrence of previous anginal symptoms, poor renal clearance with acute on chronic kidney injury, now trending down, would not recommend ischemic eval with acute renal failure, continue to monitor clinically. Could DC heparin from CV perspective 2. CAD: severe three vessel CAD post surgical revascularization 2005 with resolution of previous anginal pain. 3. Acute on chronic renal failure, appreciate primary management. Assessment and Plan Discussion w patient/family: The assessment and plan as outlined above was discussed with the patient and/or family members who expressed understanding and agreement. All questions were answered. Thank you for involving us in the care of your patient. Please call with any questions. History of Present Illness History of present illness: Ms. Pickett is a 82 year old female All Systems Review: The remainder of the systems were reviewed and are negative Physical Examination Vital Signs, Last 4 Hours Temp Pulse Resp BP Pulse Ox 01/04/18 11:33 97.8 F 57 18 114/69 95 Results 01/04/18 01:52 01/04/18 01:52 Lab Results 01/03/18 01/03/18 01/03/18 11:46 17:28 18:54 WBC 12.5 H Hgb 10.7 L Hct 32.4 L Plt Count 268 INR APTT Sodium Potassium Chloride Carbon Dioxide BUN Creatinine Glucose Calcium Troponin I 0.11 H* 0.30 H* 01/03/18 01/03/18 01/04/18 18:54 23:02 01:52 WBC 12.7 H Hgb 9.3 L Hct 27.8 L Plt Count 245 INR 1.0 APTT 26.6 Sodium Potassium Chloride Carbon Dioxide BUN Creatinine Glucose Calcium Troponin I 0.58 H* 01/04/18 01/04/18 01/04/18 01:52 01:52 08:17 WBC Hgb Hct Plt Count INR APTT 88.7 H D 81.3 H Sodium 135 L Potassium 4.8 Chloride 109 H Carbon Dioxide 19 L BUN 80 H Creatinine 3.05 H Glucose 97 Calcium 8.9 Troponin I 01/04/18 11:26 WBC Hgb Hct Plt Count INR APTT Sodium Potassium Chloride Carbon Dioxide BUN Creatinine Glucose Calcium Troponin I 0.57 H*
--- NOTE | 2018-01-04 11:56 | Electrocardiograph Report ---
[address] [place], [place] [address] Test Date: 2018-01-03 Pat Name: Isabela Pickett Department: 112 Room: 2A63 Gender: F Driller Helper: : 1935 Requested By: Vitaliy Tyler Order Number: [id number] Reading MD: Morgan Blanton Measurements Intervals [place] Rate: 70 P: 76 LA: 197 QRS: -55 QRSD: 123 T: 127 QT: 391 QTc: 413 Interpretive Statements SINUS RHYTHM LEFT ANTERIOR FASCICULAR BLOCK LATERAL ISCHEMIA Electronically Signed On 01-04-2018 11:54:56 EDT by Morgan Blanton
--- NOTE | 2018-01-04 14:44 | Internal Med Progress Note ---
Date of Encounter: 01/04/18 Time of Encounter: 14:36 - Assessment and plan (1) Acute decompensated heart failure Current Visit: Yes Status: Acute Assessment and plan: The patient decompensated with fluid overload yesterday. However her echocardiogram reveals an EF of 60%. I believe this patient has some underlying degree of heart failure. However her decompensation was likely due to the high volume of IVF, and less an issue of worsening heart failure. Her fluids are being held now and she is hyddrating PO without issue. She is no longer symptomatic and is clinically improved. Cardiology is involved and has evaluated the patient. Heparin drip has been stopped due to less suspicion of cardiac event. We will continue to monitor this patient. (2) GABY (acute kidney injury) Current Visit: Yes Status: Acute Assessment and plan: Her Creatinine continues to go down and she has clinically improved. We will not restart fluids due to risk of heart failure decompensation but she is improving on her own with time. We will continue to monitor her labs. (3) Elevated troponin Current Visit: Yes Status: Acute Assessment and plan: Patients troponin has stopped elevating. Cardiology is involved and recommended stopping her heparin, which i agree with. I believe her elevated troponin was due to ischemic demand. (4) UTI (urinary tract infection) Current Visit: Yes Status: Acute Assessment and plan: Patient was suspicious for UTI on admission. She was started on rocephin and culture monitored. She no longer has symptoms of UTI, but she does have urinary retention. Her white count has also not come down, but that could be due to volume changes and clinical scenario. We will continue to monitor but she is not clinically significant for UTI. Qualifiers: Urinary tract infection type: site unspecified Hematuria presence: without hematuria Qualified Code(s): N39.0 - Urinary tract infection, site not specified (5) Diabetes mellitus Current Visit: Yes Status: Acute Assessment and plan: Chronic and controlled on home meds. Qualifiers: Diabetes mellitus type: type 2 Diabetes mellitus termite helper insulin use: without termite helper use Diabetes mellitus complication status: without complication Qualified Code(s): E11.9 - Type 2 diabetes mellitus without complications (6) DVT prophylaxis Current Visit: Yes Status: Acute Assessment and plan: Patient is covered for DVT prophylaxis with Plavix. (7) CAD (coronary artery disease) Current Visit: Yes Status: Chronic Assessment and plan: Chronic and controlled on home meds. Qualifiers: Coronary Disease-Associated Artery/Lesion type: [place] artery [place] vs. transplanted heart: [place] heart Associated angina: without angina Qualified Code(s): I25.10 - Atherosclerotic heart disease of [place] coronary artery without angina pectoris (8) Bradycardia Current Visit: Yes Status: Acute Assessment and plan: This is asymptomatic and likely the patients baseline as she is on cardizem and metoprolol, which we will continue with hold parameters - Time Spent With Patient Total time spent is greater than 50% in coordination of care (as documented) at patient's floor/unit and/or counseling patient: - Subjective Interval history: No acute events overnight. She states she is still feeling fatigued. She denies chest pain or shortness of breath. She denies any difficulty urinating or dysuria. She denies headache, fever, or chills. I discussed starting a mukherjee catheter for urine retention which she agreed to. - Constitutional Vitals: Temp Pulse Resp BP Pulse Ox 97.8 F 57 18 114/69 95 01/04/18 11:33 01/04/18 11:33 01/04/18 11:33 01/04/18 11:33 01/04/18 11:33 Exam: No acute distress Alert and oriented x 3 Mucous membranes moist Skin warm and dry Heart in regular rate and rhythm, no murmur or rodrick Lungs clear to auscultation, without crackles or wheeze abdomen soft and non tender with normal bowel sounds Internal Medicine: Result - Labs CBC & Chem 7: 01/04/18 01:52 01/04/18 01:52 Labs: Short CBC 01/03/18 01/04/18 Range/Units 18:54 01:52 WBC 12.5 H 12.7 H (4.3-11.1) K/mcL Hgb 10.7 L 9.3 L (11.5-15.4) g/dL Hct 32.4 L 27.8 L (35.3-44.9) % Plt Count 268 245 (140-400) K/mcL Neutrophils # 9.7 H (1.6-8.9) K/mcL BMP 01/04/18 01:52 Sodium 135 L Potassium 4.8 Chloride 109 H Carbon Dioxide 19 L BUN 80 H Creatinine 3.05 H Glucose 97 Calcium 8.9 Cardiac Enzymes 01/03/18 01/03/18 01/04/18 Range/Units 17:28 23:02 11:26 Troponin I 0.30 H* 0.58 H* 0.57 H* (< 0.04) ng/mL - ABG Interpretation ABG results: PT/INR, D-dimer PT 11.7 Seconds (9.4-12.1) 01/03/18 18:54 - Impressions Impressions Echocardiogram 01/03/18 12:37 Impressions: LVEF 60%. Normal LV chamber size, wall thickness and function. Moderate left ventricular diastolic dysfunction. Atypical septal motion consistent with post-operative status. Normal right ventricular structure and function. Mild mitral regurgitation. Mild tricuspid regurgitation. Moderate pulmonary hypertension. Estimated RVSP is 50 mmHg. Left Ventricular Wall Motion: Rest Echo Findings All wall segments showed normal motion. Findings: Study Quality * Technically adequate exam. ECG Findings * Normal sinus rhythm. Left Ventricle * LVEF 60%. * Normal LV chamber size, wall thickness and function. * Moderate left ventricular diastolic dysfunction. * Atypical septal motion consistent with post-operative status. Right Ventricle * Normal right ventricular structure and function. Left Atrium * Mildly dilated left atrium. Right Atrium * Normal right atrial size. Aortic Valve * Trileaflet aortic valve. * Mildly sclerotic aortic valve leaflets. * No aortic regurgitation. * No aortic stenosis. Mitral Valve * Mild mitral annular calcification * Mild mitral regurgitation. * No mitral stenosis. Tricuspid Valve * Normal tricuspid valve structure. * Mild tricuspid regurgitation. * Moderate pulmonary hypertension. * Estimated RVSP is 50 mmHg. * Estimated RA pressure is 5 mmHg. Pulmonic Valve * Normal pulmonic valve structure and function. * No pulmonic regurgitation. Aorta * Normally sized aortic root. Pericardium * The pericardium appears normal. IVC * Normal IVC dimensions and inspiratory collapse. Pulmonary Artery * Normal visualized portions of the main pulmonary artery. Retroperitoneum Ultrasound 01/03/18 17:00 IMPRESSION: 1. No obstructive uropathy. 2. Postvoid residual in the urinary bladder of approximately 497 mL. D/ / Anil Lopez MD / Anil Lopez MD Interpreting Provider: Anil Lopez MD - Diagnostic Studies Other Images Additional comments: RDER #: [id number] US/US retroperitoneal comp IMPRESSION: 1. No obstructive uropathy. 2. Postvoid residual in the urinary bladder of approximately 497 mL. EV/EV echocardiogram Impressions: LVEF 60%. Normal LV chamber size, wall thickness and function. Moderate left ventricular diastolic dysfunction. Atypical septal motion consistent with post-operative status. Normal right ventricular structure and function. Mild mitral regurgitation. Mild tricuspid regurgitation. Moderate pulmonary hypertension. Estimated RVSP is 50 mmHg. Chest x-ray Additional comments: XR/XR chest 1V IMPRESSION: Mild interstitial changes throughout the lungs, likely mild interstitial edema versus infiltrate. Consult Discharge Plan - Plan Referrals: Casi Smalls, SURGICAL INSTRUMENT MAKER [Primary Care Provider] -
--- NOTE | 2018-01-04 16:26 | Nephrology Progress Note ---
Date of Encounter: 01/04/18 Time of Encounter: 12:00 - Assessment and Plan (1) GABY (acute kidney injury) Current Visit: Yes Status: Acute SCr improving at 3.05, GFR 15 Continue IVF Continue to avoid nephrotoxins if possible No acute indication for RESIDENTIAL THERAPIST at this time Subjective Interval history: Pt seen and examined much more awake and alert today, sitting in chair with son at bedside Objective - Vital Signs Vital signs: Vital Signs Temp Pulse Resp BP Pulse Ox 01/04/18 11:33 97.8 F 57 18 114/69 95 01/04/18 08:18 95 01/04/18 07:48 97.4 F L 69 15 138/76 95 01/04/18 04:21 97.5 F L 60 17 107/58 97 01/03/18 23:45 97.4 F L 58 17 121/61 97 01/03/18 19:46 97.6 F 64 16 132/68 97 Intake and Output 01/04/18 01/04/18 01/04/18 07:59 15:59 23:59 Intake Total 116 / 116 356 / 356 Output Total 200 / 200 200 / 200 600 / 600 Balance -84 / -84 156 / 156 -600 / -600 Intake: IV Fluids 116 / 116 116 / 116 Heparin 25,000 UNIT/500 ML D5W 116 / 116 116 / 116 25,000 unit In 500 ml @ 12 UNIT /KG/HR 17.544 mls/hr IVC .Q24H [facility] Rx#:[id number] Oral 240 / 240 Output: Urine 200 / 200 200 / 200 Catheter 600 / 600 Urethral (Mckay) 600 / 600 Other: Meal Lunch Percent of Meal Consumed 50% Stool Size Moderate Stool Consistency formed Stool Characteristics Normal for Patient Stool Color Brown # Voids 1 # Bowel Movements 1 Blood Glucose* 97 198 - Lab 01/04/18 01:52 01/04/18 01:52 Most recent lab results Calcium 8.9 mg/dL (8.6-10.3) 01/04/18 01:52 Phosphorus 4.2 mg/dL (2.7-4.5) 01/02/18 04:58 Magnesium 2.2 mg/dL (1.6-2.6) 01/02/18 04:58 Urine Creatinine 55 mg/dL 01/04/18 14:46 Urine Sodium 51.1 mEq/L 01/04/18 14:46 Consult Discharge Plan - Plan Referrals: Casi Smalls, FLAQUITA [Primary Care Provider] -
[2018-01-05] MEDS: Levothyroxine 25 MCG TABLET PO SCH (05:47)
[2018-01-05 06:05] LABS: Basophils % 0.2 %; Eosinophils # 0.3 K/mcL (0.0-0.6); Eosinophils % 3.1 %; Hematocrit 26.1 % (35.3-44.9); Hemoglobin 8.5 g/dL (11.5-15.4); Immature Granulocytes % 3.4 % (0-4); Lymphocytes # 1.2 K/mcL (0.6-4.6); Lymphocytes % 13.7 %; Mean Corpuscular HGB Conc 32.6 g/dL (31.6-35.5); Mean Corpuscular Hemoglobin 29.1 pg (28.0-33.3); Mean Corpuscular Volume 89.4 fL (83.0-100.0); Mean Platelet Volume 10.8 fL (9.4-12.4); Monocytes # 1.1 K/mcL (0.0-1.3); Monocytes % 12.7 %; Neutrophils # 5.8 K/mcL (1.6-8.9); Platelet Count 229 K/mcL (140-400); Red Blood Count 2.92 M/mcL (3.82-4.97); Red Cell Distribution Width 13.5 % (11.5-14.5); Segmented Neutrophils % 66.9 %
[2018-01-05 06:27] LABS: Calcium 8.8 mg/dL (8.6-10.3)
[2018-01-05] MEDS: Insulin LISPRO 300 UNITS/3 ML VIAL SQ SCH ×4 (09:16→21:32)
[2018-01-05] MEDS: Gabapentin 100 MG CAPSULE PO SCH ×2 (09:27→21:26)
[2018-01-05] MEDS: Diltiazem CD (24hr) 120 MG CAPSULE PO SCH (09:27)
[2018-01-05] MEDS: Insulin DETEMIR 100 UNIT/ML X5UNITS SQ SCH (09:27)
[2018-01-05] MEDS: Aspirin Enteric Coated 81 MG Tablet PO SCH (09:27)
[2018-01-05] MEDS: cefTRIAXone 1,000 MG in Water for inj. (sterile) 20 ML 10 ML IVP SCH (09:28)
--- NOTE | 2018-01-05 09:57 | Internal Med Progress Note ---
Date of Encounter: 01/05/18 Time of Encounter: 09:55 - Assessment and plan (1) Xguzl-hp-kqofoxx kidney injury Current Visit: Yes Status: Acute Assessment and plan: Currently showing improvement after giving IV fluid hydration upon admission Fluids held after fluid overload Function improved with nephroprotective strategy Nephrology consulted, recommendations appreciated Avoid nephrotoxic medications. Monitor I/Os Recheck BMP tomorrow. Qualifiers: Acute renal failure type: unspecified Chronic kidney disease stage: stage 3 (moderate) Qualified Code(s): N17.9 - Acute kidney failure, unspecified; N18.3 - Chronic kidney disease, stage 3 (moderate) (2) Acute decompensated heart failure Current Visit: Yes Status: Acute Assessment and plan: She had acute onset of dyspnea with signs of fluid overload from fluid resuscitation. Fluids have since been discontinued and patient is in no acute distress and is currently stable. She has not required Lasix which we will avoid to promote improvement of renal function. (3) Elevated troponin Current Visit: Yes Status: Acute Assessment and plan: She had troponin that appeared to be ranging from 0.05-0.07. She had an acute episode during admission of dyspnea and chest pain, was likely fluid overload from rehydration. Troponin was briefly elevated up to 0.58,likely demand ischemia. heparin drip that was placed was then discontinued An EKG during that time was unchanged since prior EKG An echocardiogram was done showing LVEF 60% with no segmental wall motion abnormalities. Today she complains of chest pain once again that resolved on its own. - Taking further history she described today's episode as a burning sensation. It may be related to GERD. - I obtained EKG today, was not changed since prior Plan: - Check one more troponin, if this is negative, this is highly suspicious for GERD, and will treat accordingly. I did educate her on soda that she is drinking and other foods. - If troponin is concerning OR she becomes dyspneic, then we will obtain a V/Q scan to rule out PE, she cannot undergoe CTA because of renal function.. She is in no acute distress at this moment. She does not have chest pain. She does note have any tachypnea to warrant this workup at this moment. (4) UTI (urinary tract infection) Current Visit: Yes Status: Acute Assessment and plan: Patient was suspicious for UTI on admission. She was started on rocephin and culture monitored. She no longer has symptoms of UTI, but she does have urinary retention. Her white count has also not come down, but that could be due to volume changes and clinical scenario. We will continue to monitor but she is not clinically significant for UTI. Qualifiers: Urinary tract infection type: site unspecified Hematuria presence: without hematuria Qualified Code(s): N39.0 - Urinary tract infection, site not specified (5) Diabetes mellitus Current Visit: Yes Status: Acute Assessment and plan: Continue Levemir 30 unit daily, Continue low dose sliding scale. Qualifiers: Diabetes mellitus type: type 2 Diabetes mellitus terminal operations manager insulin use: without fdc use Diabetes mellitus complication status: without complication Qualified Code(s): E11.9 - Type 2 diabetes mellitus without complications (6) DVT prophylaxis Current Visit: Yes Status: Acute Assessment and plan: She was on a heparin drip that is now discontinued She is on Plavix which is antiplatelet therapy but currently no DVT prophylaxis medication since drip dc'd. Will start heparin 5,000 units SQ BID, avoiding Lovenox due to renal function. (7) CAD (coronary artery disease) Current Visit: Yes Status: Chronic Assessment and plan: She has history of CABG, Continue asprin, plavix Qualifiers: Coronary Disease-Associated Artery/Lesion type: [place] artery [place] vs. transplanted heart: [place] heart Associated angina: without angina Qualified Code(s): I25.10 - Atherosclerotic heart disease of [place] coronary artery without angina pectoris (8) Bradycardia Current Visit: Yes Status: Acute Assessment and plan: This is asymptomatic and likely the patients baseline as she is on cardizem and metoprolol, which we will continue with hold parameters - Time Spent With Patient Total time spent is greater than 50% in coordination of care (as documented) at patient's floor/unit and/or counseling patient: - Subjective Interval history: Patient complains of initially chest pain but states it is more of a belching "heartburn" sensation. Heartburn is not currently present. She states this is worse with food and better with soda to help with gas. She denies shortness of breath, n/v, fevers/chills, numbness/tingling, diaphoresis, abdominal pain, extremity edema. - Constitutional Vitals: Temp Pulse Resp BP Pulse Ox 98.0 F 68 18 137/61 96 01/05/18 08:16 07/07/18 08:16 01/05/18 08:16 01/05/18 08:16 01/05/18 08:16 General appearance: Present: A&O X 3, no acute distress - Head Head exam: Present: atraumatic, normocephalic - Eye Eye exam: Present: PERRL, conjuntiva pink, sclera anicteric Pupils: Present: PERRL - Neck Neck exam general surgery: Present: supple, trachea midline. Absent: lymphadenopathy - Respiratory Respiratory exam: Present: decreased breath sounds. Absent: accessory muscle use, rales, rhonchi, wheezes - Cardiovascular Cardiovascular exam: Present: RRR, +S1, +S2. Absent: diastolic murmur, gallop, rubs, systolic murmur - GI/Abdominal GI/Abdominal exam: Present: normal bowel sounds, soft, no peritoneal signs. Absent: distended, tenderness - Extremities Exam Extremities exam: Present: warm, radial pulses palpable and symmetrical. Absent : calf tenderness, cyanotic, pedal edema - Neurological Exam Neurological exam: Present: CN II-XII intact, oriented X3, no focal deficits. Absent: pronater drift, facial droop, speech deficit - Skin Skin exam: Present: dry, intact Internal Medicine: Result - Labs CBC & Chem 7: 01/05/18 05:37 01/05/18 05:37 Labs: Short CBC 01/05/18 Range/Units 05:37 WBC 8.6 (4.3-11.1) K/mcL Hgb 8.5 L (11.5-15.4) g/dL Hct 26.1 L (35.3-44.9) % Plt Count 229 (140-400) K/mcL Neutrophils # 5.8 (1.6-8.9) K/mcL BMP 01/05/18 05:37 Sodium 135 L Potassium 5.0 Chloride 110 H Carbon Dioxide 20 L BUN 76 H Creatinine 2.80 H Glucose 102 Calcium 8.8 Cardiac Enzymes 01/04/18 Range/Units 11:26 Troponin I 0.57 H* (< 0.04) ng/mL - ABG Interpretation ABG results: PT/INR, D-dimer PT 11.7 Seconds (9.4-12.1) 01/03/18 18:54 Consult Discharge Plan - Plan Referrals: Casi Smalls, UNIVERSITY DEMONSTRATOR [Primary Care Provider] -
--- NOTE | 2018-01-05 15:33 | Nephrology Progress Note ---
Date of Encounter: 01/05/18 Time of Encounter: 12:00 - Assessment and Plan (1) GABY (acute kidney injury) Current Visit: Yes Status: Deleted SCr improving at 2.8, GFR 16 Continue IVF Continue to avoid nephrotoxins if possible No acute indication for MAINTENANCE SHOP WELDER at this time Subjective Interval history: Pt seen and examined doing well, family at bedside Objective - Vital Signs Vital signs: Vital Signs Temp Pulse Resp BP Pulse Ox 01/05/18 12:13 98.1 F 64 18 130/63 98 01/05/18 08:16 98.0 F 68 18 137/61 96 01/05/18 07:20 69 132/78 96 01/05/18 03:26 98.1 F 62 16 136/84 96 01/05/18 00:14 98.5 F 62 18 117/71 97 01/04/18 20:23 97.9 F 66 18 127/68 100 01/04/18 17:01 97.9 F 63 18 132/85 97 Intake and Output 01/04/18 01/05/18 01/05/18 23:59 07:59 15:59 Intake Total 0 / 0 840 / 840 Output Total 900 / 900 250 / 250 900 / 900 Balance -900 / -900 -250 / -250 -60 / -60 Intake: Oral 0 / 0 840 / 840 Output: Urine 300 / 300 500 / 500 Catheter 600 / 600 250 / 250 400 / 400 Urethral (Mckay) 600 / 600 Other: Meal Lunch Percent of Meal Consumed 100% Weight 74.3 kg Blood Glucose* 197 112 Patient Weight 01/05/18 23:59 Weight 74.3 kg - Lab 01/05/18 05:37 01/05/18 05:37 Most recent lab results Calcium 8.8 mg/dL (8.6-10.3) 01/05/18 05:37 Phosphorus 4.2 mg/dL (2.7-4.5) 01/02/18 04:58 Magnesium 2.2 mg/dL (1.6-2.6) 01/02/18 04:58 Urine Creatinine 55 mg/dL 01/04/18 14:46 Urine Sodium 51.1 mEq/L 01/04/18 14:46 Consult Discharge Plan - Plan Referrals: Casi Smalls, TALENT PROGRAM MANAGER [Primary Care Provider] -
[2018-01-05] MEDS: *HR* Heparin 5,000 UNIT/ML VIAL SQ SCH (17:19)
[2018-01-05] MEDS ORDERED: *HR* LORazepam 2 MG/ML VIAL IVP ONE (22:23)
--- NOTE | 2018-01-05 23:11 | Event Note ---
Date of Encounter: 01/05/18 Time of Encounter: 22:01 Alerted by pts. nurse AINSLEY Valadez that pt. was anxious and SOB. Patient originally admitted with diagnosis of UTI, GABY, and elevated troponin. Went to see patient who was resting in bed. On exam patient using accessory muscles for breathing and SPO2 was 88% on 2 L via nasal cannula. Patient also complaining of centralized chest pain. Stat EKG ordered which showed sinus rhythm with intraventricular conduction delay, ST depression, consider subendocardial injury. Previous EKG today showed sinus rhythm with left anterior fascicular block, ST deviation, and moderate T-wave abnormality. Consider lateral ischemia. Stat troponin ordered due to patient's elevated troponins during admission. Troponin today was 0.27. Stat troponin 0.15. Patient changed from nasal cannula to oxy mask which increased SPO2 to 95%. Patient states she felt better after having oxy mask placed. Went back to see patient who was now sleeping. 0.5 Ativan IVP ordered for patient's anxiety once. Prior to Ativan, patient's blood pressure was 173/85. Hydralazine 10 mg every 6 hours when necessary with parameters ordered. Patient's nurse instructed to monitor patient closely and alert me of any changes.
[2018-01-06] MEDS: *HR* Heparin 5,000 UNIT/ML VIAL SQ SCH (05:31)
[2018-01-06] MEDS: Levothyroxine 25 MCG TABLET PO SCH (05:32)
[2018-01-06] MEDS ORDERED: Lidocaine Jelly 11 ml Syringe MM ONE (05:56)
[2018-01-06] MEDS: Insulin LISPRO 300 UNITS/3 ML VIAL SQ SCH ×4 (07:19→21:24)
[2018-01-06 08:08] LABS: Basophils # 0.1 K/mcL (0.0-0.2); Basophils % 0.4 %; Eosinophils # 0.2 K/mcL (0.0-0.6); Eosinophils % 1.5 %; Hematocrit 28.2 % (35.3-44.9); Hemoglobin 9.4 g/dL (11.5-15.4); Immature Granulocytes % 4.9 % (0-4); Lymphocytes # 1.6 K/mcL (0.6-4.6); Lymphocytes % 13.9 %; Mean Corpuscular HGB Conc 33.3 g/dL (31.6-35.5); Mean Corpuscular Hemoglobin 29.9 pg (28.0-33.3); Mean Corpuscular Volume 89.8 fL (83.0-100.0); Mean Platelet Volume 11.1 fL (9.4-12.4); Monocytes # 1.8 K/mcL (0.0-1.3); Monocytes % 15.8 %; Neutrophils # 7.1 K/mcL (1.6-8.9); Platelet Count 251 K/mcL (140-400); Red Blood Count 3.14 M/mcL (3.82-4.97); Red Cell Distribution Width 13.3 % (11.5-14.5); Segmented Neutrophils % 63.5 %
[2018-01-06 08:41] LABS: Calcium 9.4 mg/dL (8.6-10.3); Potassium 5.5 mEq/L (3.5-5.1)
--- NOTE | 2018-01-06 09:07 | Internal Med Progress Note ---
Date of Encounter: 01/06/18 Time of Encounter: 09:02 - Assessment and plan (1) Acute respiratory failure with hypoxia Current Visit: Yes Status: Acute Assessment and plan: Patient had few episodes of dyspnea during admission and she has had fluid overload. Overnight had desaturation with O2 to 88%. Given she had what may be ST depressions but troponin is improving. Cardiology was consulted for her prior complaint of chest pain and elevated troponin and it was likely demand ischemia and so a heparin drip was stopped 1 day ago. An echocardiogram showed LVEF 60% and had moderate LV diastolic dysfunction, and moderate pulmonary hypertension. An ABG was done this morning while patient was on room air and was fairly unremarkable, in no acute distress with no chest pain this morning. She is unable to do V/Q scan this AM from anxiety and unable to cooperate with test. She is unable to do CTA chest because of renal failure. a D-dimer would probably not be useful as patient has renal failure and will likely be elevated regardless. Differentials include acute decompensated heart failure, anxiety attack, PE, vs other etiology. - BIPAP prn respiratory distress - IV Lasix now and will need close monitoring of renal function. - Would like to avoid Ativan as much as possible for anixety attacks due to need for monitoring - Repeat a chest x-ray now. - Need to reattempt V/Q scan when patient more cooperative - Give patient renally dosed Eliquis until then. If PE is ruled out then stop anticoagulant. (2) Maqib-wd-ahynyle kidney injury Current Visit: Yes Status: Acute Assessment and plan: Currently showing improvement after giving IV fluid hydration upon admission Fluids held after fluid overload Function improved with nephroprotective strategy Nephrology consulted, recommendations appreciated Avoid nephrotoxic medications. Monitor I/Os Mckay needed re insertion because of urinary retention. She needs a dose of Lasix today because of dyspnea likely from fluid overload. This will be given cautiously today. Qualifiers: Acute renal failure type: unspecified Chronic kidney disease stage: stage 3 (moderate) Qualified Code(s): N17.9 - Acute kidney failure, unspecified; N18.3 - Chronic kidney disease, stage 3 (moderate) (3) Elevated troponin Current Visit: Yes Status: Acute Assessment and plan: She had troponin that appeared to be ranging from 0.05-0.07. She had an acute episode during admission of dyspnea and chest pain, was likely fluid overload from rehydration. Troponin was briefly elevated up to 0.58,likely demand ischemia. heparin drip that was placed was then discontinued An echocardiogram was done showing LVEF 60% with no segmental wall motion abnormalities. Patient had another episode of dyspnea and chest pain overnight, EKG showed possible ST depression in V3, V4. Troponin was decreased and now is 0.15. (4) Bradycardia Current Visit: Yes Status: Acute Assessment and plan: This is asymptomatic and likely the patients baseline as she is on cardizem and metoprolol, which we will continue with hold parameters (5) UTI (urinary tract infection) Current Visit: Yes Status: Acute Assessment and plan: Patient was suspicious for UTI on admission. She was started on rocephin and culture monitored. She no longer has symptoms of UTI, but she does have urinary retention. Her white count has also not come down, but that could be due to volume changes and clinical scenario. We will continue to monitor but she is not clinically significant for UTI. She is afebrile and hemodynamically stable. She has received 5 days of Rocephin, will stop today. Qualifiers: Urinary tract infection type: site unspecified Hematuria presence: without hematuria Qualified Code(s): N39.0 - Urinary tract infection, site not specified (6) Diabetes mellitus Current Visit: Yes Status: Acute Assessment and plan: Continue Levemir 30 unit daily, Continue low dose sliding scale. Qualifiers: Diabetes mellitus type: type 2 Diabetes mellitus detention insulin use: without terminal gauger supervisor use Diabetes mellitus complication status: without complication Qualified Code(s): E11.9 - Type 2 diabetes mellitus without complications (7) DVT prophylaxis Current Visit: Yes Status: Acute (8) CAD (coronary artery disease) Current Visit: Yes Status: Chronic Assessment and plan: She has history of CABG, Continue asprin, plavix Qualifiers: Coronary Disease-Associated Artery/Lesion type: [place] artery [place] vs. transplanted heart: [place] heart Associated angina: without angina Qualified Code(s): I25.10 - Atherosclerotic heart disease of [place] coronary artery without angina pectoris (9) Urinary retention Current Visit: Yes Status: Acute Assessment and plan: Patient needed Mckay re inserted today Will start Flomax (10) Hyperkalemia Current Visit: Yes Status: Acute Assessment and plan: May be falsely elevated from hemolysis. If it is true hyperkalemia it needs immediatly reversed if >5.5. She is being given Lasix today, will recheck. - Time Spent With Patient Total time spent is greater than 50% in coordination of care (as documented) at patient's floor/unit and/or counseling patient: - Subjective Interval history: PPatient was complaining of chest pain overnight and it was noted patient was anxious and SOB. She had O2 drop to 88% on 2L NC and she then required oxymask. EKG at that time possible ST depressions in V3, V4. A repeat troponin was 0.15 which is decreased from prior troponin. Currently she is on room air and is in no acute distress. She denies chest pain, SOB, n/v, diaphoresis, numbness/tingling at this moment. - Constitutional Vitals: Temp Pulse Resp BP Pulse Ox 97.3 F L 59 17 135/53 100 01/06/18 06:55 01/06/18 06:55 01/06/18 06:55 01/06/18 06:55 01/06/18 06:55 General appearance: Present: A&O X 3, no acute distress - Head Head exam: Present: atraumatic, normocephalic - Eye Eye exam: Present: PERRL, conjuntiva pink, sclera anicteric Pupils: Present: PERRL - Neck Neck exam general surgery: Present: supple, trachea midline. Absent: lymphadenopathy - Respiratory Respiratory exam: Present: decreased breath sounds, rales. Absent: accessory muscle use, rhonchi, wheezes - Cardiovascular Cardiovascular exam: Present: RRR, +S1, +S2. Absent: diastolic murmur, gallop, rubs, systolic murmur - GI/Abdominal GI/Abdominal exam: Present: normal bowel sounds, soft, no peritoneal signs. Absent: distended, tenderness - Extremities Exam Extremities exam: Present: warm, radial pulses palpable and symmetrical. Absent : calf tenderness, cyanotic, pedal edema - Neurological Exam Neurological exam: Present: CN II-XII intact, oriented X3, no focal deficits. Absent: pronater drift, facial droop, speech deficit - Skin Skin exam: Present: dry, intact Internal Medicine: Result - Labs CBC & Chem 7: 01/06/18 07:23 01/06/18 07:23 Labs: Short CBC 01/06/18 Range/Units 07:23 WBC 11.2 H (4.3-11.1) K/mcL Hgb 9.4 L (11.5-15.4) g/dL Hct 28.2 L (35.3-44.9) % Plt Count 251 (140-400) K/mcL Neutrophils # 7.1 (1.6-8.9) K/mcL BMP 01/06/18 07:23 Sodium 133 L Potassium 5.5 H Chloride 107 Carbon Dioxide 21 L BUN 69 H Creatinine 2.29 H Glucose 102 Calcium 9.4 Cardiac Enzymes 01/05/18 01/05/18 Range/Units 09:43 22:31 Troponin I 0.27 H* 0.15 H* (< 0.04) ng/mL - ABG Interpretation ABG results: PT/INR, D-dimer PT 11.7 Seconds (9.4-12.1) 01/03/18 18:54 Consult Discharge Plan - Plan Referrals: Casi Smalls, BUYER INTERN [Primary Care Provider] -
[2018-01-06 09:17] LABS: ABG Base Excess -5 mEq/L (-2 to 3); ABG HCO3 21 mEq/L (21-27); ABG Oxygen Saturation 88 % (95-98); ABG PCO2 39 mmHg (35-45); ABG PH 7.34 pH Units (7.32-7.45); ABG PO2 58 mmHg (85-104); ABG TCO2 22 mEq/L (20-26)
[2018-01-06] MEDS ORDERED: Furosemide 40 MG/4 ML VIAL IVP ONE (09:24)
[2018-01-06] MEDS ORDERED: Apixaban 5 MG TABLET PO SCH (09:30)
[2018-01-06] MEDS: Gabapentin 100 MG CAPSULE PO SCH ×2 (09:53→21:22)
[2018-01-06] MEDS: Aspirin Enteric Coated 81 MG Tablet PO SCH (09:53)
[2018-01-06] MEDS: Diltiazem CD (24hr) 120 MG CAPSULE PO SCH (09:53)
[2018-01-06] MEDS: Insulin DETEMIR 100 UNIT/ML X5UNITS SQ SCH (09:53)
[2018-01-06] MEDS: Furosemide 40 MG/4 ML VIAL IVP SCH ×2 (10:10→21:21)
[2018-01-06] MEDS ORDERED: *HR* Heparin 5,000 UNIT/ML VIAL IVP PRN ×2 (10:30)
[2018-01-06] MEDS ORDERED: Heparin 25,000 UNIT/500 ML D5W 25,000 UNIT/500 ML BAG IVC SCH (10:30)
[2018-01-06] MEDS ORDERED: *HR* Heparin 5,000 UNIT/ML VIAL IVP ONE (10:30)
--- NOTE | 2018-01-06 11:06 | Nephrology Progress Note ---
Date of Encounter: 01/06/18 Time of Encounter: 11:00 - Assessment and Plan (1) GABY (acute kidney injury) Current Visit: Yes Status: Deleted SCr continues to improve at 2.2, GFR 20 Agree replacing mukherjee, may need urologic help Continue IVF Continue to avoid nephrotoxins if possible No acute indication for HEAD PORTER BAGGAGE at this time (2) CKD (chronic kidney disease) stage 4, GFR 15-29 ml/min Current Visit: Yes Status: Acute Baseline appears to be GFR around 26 (3) Urinary retention Current Visit: Yes Status: Acute Subjective Interval history: Pt seen and examined, had urinary retention overnight after mukherjee d/cd yesterday Objective - Vital Signs Vital signs: Vital Signs Temp Pulse Resp BP Pulse Ox 01/06/18 10:56 97.7 F 66 18 127/45 93 01/06/18 06:55 97.3 F L 59 17 135/53 100 01/06/18 05:09 97.4 F L 58 18 120/58 100 01/06/18 00:50 61 18 129/85 01/05/18 23:11 78 18 149/66 97 01/05/18 23:05 97.4 F L 84 20 151/80 96 01/05/18 22:13 95 20 143/84 01/05/18 22:05 95 20 142/69 87 01/05/18 19:08 97.6 F 73 18 142/61 98 01/05/18 16:10 97.8 F 63 19 135/74 96 01/05/18 12:13 98.1 F 64 18 130/63 98 Intake and Output 01/05/18 01/06/18 01/06/18 23:59 07:59 15:59 Intake Total 1060 / 1060 100 / 100 Output Total 200 / 200 750 / 750 Balance 860 / 860 -650 / -650 Intake: Oral 1060 / 1060 100 / 100 Output: Urine 200 / 200 Catheter 750 / 750 Other: Meal Dinner Percent of Meal Consumed 0% Stool Size Moderate Stool Consistency formed Stool Characteristics Normal for Patient Stool Color Brown Bright Red Blood # Voids 1 # Urine Diapers 1 # Bowel Movements 1 Weight 75.3 kg Blood Glucose* 195 104 87 Patient Weight 01/06/18 23:59 Weight 75.3 kg - Lab 01/06/18 07:23 01/06/18 07:23 Most recent lab results ABG pH 7.34 pH Units (7.32-7.45) 01/06/18 09:07 ABG pCO2 39 mmHg (35-45) 01/06/18 09:07 ABG pO2 58 mmHg (85-104) L 01/06/18 09:07 ABG HCO3 21 mEq/L (21-27) 01/06/18 09:07 ABG O2 Saturation 88 % (95-98) L 01/06/18 09:07 Calcium 9.4 mg/dL (8.6-10.3) 01/06/18 07:23 Phosphorus 4.2 mg/dL (2.7-4.5) 01/02/18 04:58 Magnesium 2.2 mg/dL (1.6-2.6) 01/02/18 04:58 Urine Creatinine 55 mg/dL 01/04/18 14:46 Urine Sodium 51.1 mEq/L 01/04/18 14:46 Consult Discharge Plan - Plan Referrals: Casi Smalls, DIRECTOR OF COMMUNITY CENTER [Primary Care Provider] -
[2018-01-06 12:06] LABS: Troponin I 2.92 ng/mL (< 0.04)
--- NOTE | 2018-01-06 21:24 | Cardiology Progress Note ---
Date of Encounter: 01/06/18 Time of Encounter: 20:40 Assessment and Plan (1) NSTEMI (non-ST elevation myocardial infarction) Current Visit: Yes Status: Acute New episode of chest pain last pm, EKG with new ischemic changes, troponin elevated, is a candidate for LHC/poss in AM if renal function continues to improve. Agree with restart heparin, will make NPO, plan AM cath if remains chest pain free. (2) Acute respiratory failure with hypoxia Current Visit: Yes Status: Acute Shortness of breath has improved, is able to lie supine at 3o degrees, becomes more short of breath and has to sit up if lies bach further, will continue to monitor, may not improve enough overnight for LHC if unable to lie flat without severe dyspnea. (3) Frfxp-sk-bjaybnw kidney injury Current Visit: Yes Status: Acute Mild improvement, renal function has slightly improved, will assess in AM, discuss timing of LHC/Poss with nephrology when am labs available. Qualifiers: Acute renal failure type: unspecified Chronic kidney disease stage: stage 3 (moderate) Qualified Code(s): N17.9 - Acute kidney failure, unspecified; N18.3 - Chronic kidney disease, stage 3 (moderate) (4) Elevated troponin Current Visit: Yes Status: Acute Per cardiology: -Troponins 0.07, 0.05, 0.11, 0.3, 0.58 in the setting of GABY, UTI., then .15 now 2.2. with improving renal function, most consistent with acute ischemic event, LHC poss in AM if renal function continues to improve, pt able to lie flat, will discuss with nephrology. (5) CAD (coronary artery disease) Current Visit: Yes Status: Chronic Per cardiology: -Severe triple vessel dx, Known CAD s/p CABG 12 years ago at [facility]. Qualifiers: Coronary Disease-Associated Artery/Lesion type: [place] artery [place] vs. transplanted heart: [place] heart Associated angina: without angina Qualified Code(s): I25.10 - Atherosclerotic heart disease of [place] coronary artery without angina pectoris Discussion w patient/family: The assessment and plan as outlined above was discussed with the patient and/or family members who expressed understanding and agreement. All questions were answered. Thank you for involving us in the care of your patient. Please call with any questions. Subjective Principal diagnosis: Chest pain Interval history: Asked to reevaluate pt with episode of chest pain last PM, elevating troponins Pt sleepy but arouses easily, reports episode of chest pressure last pm, 12/09, came on spontaneously at rest, lasted ten to fifteen minutes, resolved spontaneously. She reports has had similar episodes at home over last several weeks, usually not as severe. She had previous reported no symptoms of chest pain since 2005. She is now resting comfortably, denies chest pain today. She notes is less short of breath this evening. Objective Vital Signs, Last 4 Hours Temp Pulse Resp BP Pulse Ox 01/06/18 19:50 99.0 F 74 18 117/65 94 General: Conversant, No Apparent Distress, Other (sleepy but arousable.) HEENT: Atraumatic, Normocephaly Neck: Normal carotid pulses Cardiac: Reg Rate and Rhythm, Normal S1 and S2 Lungs: Normal Breath Sounds Neuro: No focal deficits noted Abdomen: Soft, Non-Tender Skin: No rashes noted on visualized skin Musculoskeletal: No Chest Wall Tenderness Extremities: Other (mild bilateral pretibial edema. ) Results 01/06/18 07:23 01/06/18 07:23 Lab Results 01/05/18 01/06/18 01/06/18 22:31 07:23 07:23 WBC 11.2 H Hgb 9.4 L Hct 28.2 L Plt Count 251 APTT Sodium 133 L Potassium 5.5 H Chloride 107 Carbon Dioxide 21 L BUN 69 H Creatinine 2.29 H Glucose 102 Calcium 9.4 Troponin I 0.15 H* 2.92 H* 01/06/18 01/06/18 01/06/18 10:49 19:06 19:06 WBC Hgb Hct Plt Count APTT 19.7 L D 99.1 H D Sodium Potassium Chloride Carbon Dioxide BUN Creatinine Glucose Calcium Troponin I 3.23 H* - EKG Interpretation EKG results cardiology: personally reviewed (NSR, new T wave inversions ant/lat leads consisent with new ischemia.) Consult Discharge Plan - Plan Referrals: Casi Smalls, MIDDLEWARE ARCHITECT [Primary Care Provider] -
[2018-01-07 03:33] LABS: Mean Corpuscular HGB Conc 32.5 g/dL (31.6-35.5); Mean Corpuscular Hemoglobin 29.4 pg (28.0-33.3); Mean Corpuscular Volume 90.6 fL (83.0-100.0); Mean Platelet Volume 10.8 fL (9.4-12.4); Platelet Count 229 K/mcL (140-400); Red Blood Count 2.65 M/mcL (3.82-4.97); Red Cell Distribution Width 13.3 % (11.5-14.5)
[2018-01-07 03:36] LABS: Hemoglobin 7.8 g/dL (11.5-15.4)
[2018-01-07 03:50] LABS: Calcium 8.7 mg/dL (8.6-10.3)
[2018-01-07 03:54] LABS: Lymphocytes # 1.1 K/mcL (0.6-4.6); Monocytes # 2.1 K/mcL (0.0-1.3); Neutrophils # 6.9 K/mcL (1.6-8.9); Platelet Estimate Normal (Normal)
[2018-01-07] MEDS: Levothyroxine 25 MCG TABLET PO SCH (06:21)
[2018-01-07] MEDS: Insulin LISPRO 300 UNITS/3 ML VIAL SQ SCH ×4 (07:31→21:27)
[2018-01-07] MEDS: Aspirin Enteric Coated 81 MG Tablet PO SCH (07:47)
[2018-01-07] MEDS: Gabapentin 100 MG CAPSULE PO SCH ×2 (07:47→21:27)
[2018-01-07] MEDS: Diltiazem CD (24hr) 120 MG CAPSULE PO SCH (07:47)
[2018-01-07] MEDS: Furosemide 20 MG/2 ML VIAL IVP SCH ×2 (07:48→15:35)
--- NOTE | 2018-01-07 09:32 | Nephrology Progress Note ---
Date of Encounter: 01/07/18 Time of Encounter: 09:32 - Assessment and Plan (1) GABY (acute kidney injury) Current Visit: Yes Status: Deleted SCr continues to improve 2.24 down from 2.29, GFR 25, which is close to baseline. Mckay in place with clear yellow urine. Continue to avoid nephrotoxins if possible. No acute indication for [employer] at this time. (2) CKD (chronic kidney disease) stage 4, GFR 15-29 ml/min Current Visit: Yes Status: Acute Baseline GFR 26. (3) Urinary retention Current Visit: Yes Status: Acute Improved with Mckay Catheter. (4) Hyperkalemia Current Visit: Yes Status: Acute K is 5 today, will trend. Diet changed to low potassium/cardiac with fluid restriction. Subjective Principal diagnosis: Chest pain Interval history: Pt seen and examined. NAD, denies nausea/vomiting or chest pain. Admits to shortness of breath. Objective - Vital Signs Vital signs: Vital Signs Temp Pulse Resp BP Pulse Ox 01/07/18 07:54 92 01/07/18 07:19 98.4 F 65 18 113/67 92 01/07/18 04:38 98.2 F 64 18 105/62 94 01/07/18 00:09 98.4 F 70 18 100/58 94 01/06/18 19:50 99.0 F 74 18 117/65 94 01/06/18 16:31 98.0 F 67 18 112/73 90 01/06/18 10:56 97.7 F 66 18 127/45 93 Intake and Output 01/06/18 01/07/18 01/07/18 23:59 07:59 15:59 Intake Total 159 / 159 100 / 100 240 / 240 Output Total 450 / 450 Balance 159 / 159 -350 / -350 240 / 240 Intake: IV Fluids 159 / 159 0 / 0 Heparin 25,000 UNIT/500 ML D5W 159 / 159 0 / 0 25,000 unit In 500 ml @ 12 UNIT /KG/HR 18.072 mls/hr IVC .Q24H CHARLY Rx#:[id number] Oral 100 / 100 240 / 240 Output: Catheter 450 / 450 Other: Meal Breakfast Percent of Meal Consumed 90% Weight 71.2 kg Blood Glucose* 203 138 Patient Weight 01/07/18 23:59 Weight 71.2 kg - General Appearance General appearance: Present: chronically ill EENT: Present: ATNC, hearing intact, vision intact Neck: Present: supple Respiratory: Present: clear Cardiology: Present: no edema, normal S1, normal S2 Gastrointestinal: Present: normoactive bowel sounds, no tenderness, no guarding Integumentary: Present: no rash, warm and dry Neurologic: Present: alert and oriented x3 Psychiatric: Present: mood/affect appropriate, cooperative - Lab 01/07/18 03:05 01/07/18 03:05 Most recent lab results ABG pH 7.34 pH Units (7.32-7.45) 01/06/18 09:07 ABG pCO2 39 mmHg (35-45) 01/06/18 09:07 ABG pO2 58 mmHg (85-104) L 01/06/18 09:07 ABG HCO3 21 mEq/L (21-27) 01/06/18 09:07 ABG O2 Saturation 88 % (95-98) L 01/06/18 09:07 Calcium 8.7 mg/dL (8.6-10.3) 01/07/18 03:05 Phosphorus 4.2 mg/dL (2.7-4.5) 01/02/18 04:58 Magnesium 2.2 mg/dL (1.6-2.6) 01/02/18 04:58 Urine Creatinine 55 mg/dL 01/04/18 14:46 Urine Sodium 51.1 mEq/L 01/04/18 14:46 Consult Discharge Plan - Plan Referrals: Casi Smalls, SHANK TAPER [Primary Care Provider] -
[2018-01-07] MEDS: Insulin DETEMIR 100 UNIT/ML X5UNITS SQ SCH (11:32)
[2018-01-07 12:50] LABS: Hematocrit 27.4 % (35.3-44.9); Hemoglobin 8.7 g/dL (11.5-15.4)
--- NOTE | 2018-01-07 13:36 | Cardiology Progress Note ---
Date of Encounter: 01/07/18 Time of Encounter: 10:30 Assessment and Plan (1) NSTEMI (non-ST elevation myocardial infarction) Current Visit: Yes Status: Acute Patient c/o chest pain over weekend. EKG showed new ischemic changes and troponin elevation up to 3.23. LHC recommended once kidney function improves. Noted that Hgb declined after starting heparin gtt. VQ scan pending. Serial H/H ordered by primary team for monitoring. Discussed LHC once patient stable from anemia and GABY standpoint. She declines LHC. States that she does not want to have any invasive procedure. Medical management is reasonable in the setting of advanced age with no chest pain. If she has recurrent symptoms she may need to reconsider. Ideally would recommend heparin gtt for 24-48 hours post NC. Hgb dropped from 9.4-7.8. If VQ scan is negative would d/c heparin gtt. Primary team following. TTE shows preserved EF at 60%. Mild MR. Mild TR. Mild PAH. Continue asa, plavix, statin, and bb. She is not a candidate for cardiac rehab at this time with medical management. Out-patient follow-up will be scheduled in 1-2 weeks. Please call with changes or questions. (2) CAD (coronary artery disease) Current Visit: Yes Status: Chronic Per cardiology: Severe triple vessel dx, Known CAD s/p CABG 12 years ago at [facility]. TTE this admit shows preserved EF. Denies chest pain. Patient would like to continue medical management. Continue asa, plavix as tolerated, bb, and statin. Qualifiers: Coronary Disease-Associated Artery/Lesion type: [place] artery [place] vs. transplanted heart: [place] heart Associated angina: without angina Qualified Code(s): I25.10 - Atherosclerotic heart disease of [place] coronary artery without angina pectoris Discussion w patient/family: The assessment and plan as outlined above was discussed with the patient and/or family members who expressed understanding and agreement. All questions were answered. Thank you for involving us in the care of your patient. Please call with any questions. Subjective Principal diagnosis: Chest pain Interval history: Patient states she is feeling much better. Transport at bedside to take her for VQ scan. She states that she does not want any invasive procedures. Objective Vital Signs, Last 4 Hours Temp Pulse Resp BP Pulse Ox 01/07/18 11:16 97.6 F 63 18 116/71 92 General: Conversant, No Apparent Distress HEENT: Atraumatic, Normocephaly, Mucus Membranes Moist Neck: No JVD, Normal carotid pulses Cardiac: Reg Rate and Rhythm, Normal S1 and S2, No Murmur Lungs: Normal Breath Sounds, No Wheeze, Rales, Rhonchi Neuro: Alert and responsive, No focal deficits noted Abdomen: Soft, Non-Tender, Other (Mckay intact with clear yellow urine. ) Skin: No rashes noted on visualized skin Musculoskeletal: No Chest Wall Tenderness Extremities: No Clubbing, No Cyanosis, No Edema, Normal Pulses Results 01/07/18 12:23 01/07/18 03:05 Lab Results 01/06/18 01/06/18 01/07/18 19:06 19:06 02:39 WBC Hgb Hct Plt Count APTT 99.1 H D 45.2 H D Sodium Potassium Chloride Carbon Dioxide BUN Creatinine Glucose Calcium Troponin I 3.23 H* 01/07/18 01/07/18 01/07/18 03:05 03:05 11:11 WBC 10.5 Hgb 7.8 L D Hct 24.0 L Plt Count 229 APTT 58.0 H Sodium 132 L Potassium 5.0 Chloride 108 H Carbon Dioxide 19 L BUN 69 H Creatinine 2.24 H Glucose 179 H Calcium 8.7 Troponin I 01/07/18 12:23 WBC Hgb 8.7 L Hct 27.4 L Plt Count APTT Sodium Potassium Chloride Carbon Dioxide BUN Creatinine Glucose Calcium Troponin I - Imaging and Cardiology Echo: report reviewed - EKG Interpretation EKG results cardiology: personally reviewed Consult Discharge Plan - Plan Referrals: Casi Smalls, FLAQUITA [Primary Care Provider] -
--- NOTE | 2018-01-07 14:54 | Electrocardiograph Report ---
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
--- NOTE | 2018-01-07 16:21 | Internal Med Progress Note ---
<Ernie Adams - Last Filed: 01/07/18 16:22> Date of Encounter: 01/07/18 Time of Encounter: 16:22 - Assessment and plan (1) Elevated troponin Current Visit: Yes Status: Acute Assessment and plan: Last troponin 3.23, likely due to acute heart failure Cardiology consulted, considering NSTEMI, recommended [facility] Patient refused [facility], will follow up with Cardiology outpatient for medical management Patient currently asymptomatic, heparin drip currently running home Plavix and Aspirin until outpatient Cardiology (2) UTI (urinary tract infection) Current Visit: Yes Status: Acute Assessment and plan: Patient was suspected for UTI on admission, she was treated with Rocephin She has improved clinically, no longer symptomatic Her white count has not come down, but this may be due to renal and cardiac insult Will continue to monitor white count, Rocephin has been discontinued Qualifiers: Urinary tract infection type: site unspecified Hematuria presence: without hematuria Qualified Code(s): N39.0 - Urinary tract infection, site not specified (3) Diabetes mellitus Current Visit: Yes Status: Acute Assessment and plan: Continue Levemir 30 unit daily, Continue low dose sliding scale. 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 (5) CAD (coronary artery disease) Current Visit: Yes Status: Chronic Assessment and plan: She has history of CABG, Continue asprin, plavix Qualifiers: Coronary Disease-Associated Artery/Lesion type: [place] artery [place] vs. transplanted heart: [place] heart Associated angina: without angina Qualified Code(s): I25.10 - Atherosclerotic heart disease of [place] coronary artery without angina pectoris (6) Bradycardia Current Visit: Yes Status: Acute Assessment and plan: This is asymptomatic and likely the patients baseline as she is on cardizem and metoprolol, which we will continue with hold parameters (7) Ktxnu-rj-ymztvaf kidney injury Current Visit: Yes Status: Acute Assessment and plan: Currently showing improvement after giving IV fluid hydration upon admission Fluids held after fluid overload Function improved with nephroprotective strategy Nephrology consulted, recommendations appreciated Avoid nephrotoxic medications. Monitor I/Os Mckay in place because of urinary retention. She needs a dose of Lasix today because of dyspnea likely from fluid overload. This will be given cautiously today. Qualifiers: Acute renal failure type: unspecified Chronic kidney disease stage: stage 3 (moderate) Qualified Code(s): N17.9 - Acute kidney failure, unspecified; N18.3 - Chronic kidney disease, stage 3 (moderate) (8) Acute respiratory failure with hypoxia Current Visit: Yes Status: Resolved Assessment and plan: Patient had few episodes of dyspnea during admission and she has had fluid overload. Cardiology was consulted for her prior complaint of chest pain and elevated troponin An echocardiogram showed LVEF 60% and had moderate LV diastolic dysfunction, and moderate pulmonary hypertension. A Differentials include acute decompensated heart failure, anxiety attack, PE, vs other etiology. - BIPAP prn respiratory distress - IV Lasix now and will need close monitoring of renal function. - Would like to avoid Ativan as much as possible for anixety attacks due to need for monitoring - VQ scan not suspicious for PE (9) Urinary retention Current Visit: Yes Status: Acute Assessment and plan: Patient on Flomax with Mckay inserted (10) Hyperkalemia Current Visit: Yes Status: Resolved Assessment and plan: Resolved, was likely due to hemolysis - Time Spent With Patient Total time spent is greater than 50% in coordination of care (as documented) at patient's floor/unit and/or counseling patient: - Subjective Interval history: No acute events overnight. Patient denies chest pain, shortness of breath, fever , chills, nausea or vomiting. She was informed of plan for VQ scan and possible LHC today. - Constitutional Vitals: Temp Pulse Resp BP Pulse Ox 97.5 F L 63 18 116/65 94 01/07/18 15:17 01/07/18 15:17 01/07/18 15:17 01/07/18 15:17 01/07/18 15:17 General appearance: Present: A&O X 3, no acute distress Exam: No acute distress Alert and oriented x 3 Conjunctiva without pallor Skin without pallor Legs without edema, negative arsen signs Heart regular rate and rhythm Lungs clear to auscultation Abdomen soft and non-tender Neurologically intact Internal Medicine: Result - Labs CBC & Chem 7: 01/07/18 12:23 01/07/18 03:05 Labs: Short CBC 01/07/18 01/07/18 Range/Units 03:05 12:23 WBC 10.5 (4.3-11.1) K/mcL Hgb 7.8 L D 8.7 L (11.5-15.4) g/dL Hct 24.0 L 27.4 L (35.3-44.9) % Plt Count 229 (140-400) K/mcL Neutrophils # 6.9 (1.6-8.9) K/mcL BMP 01/07/18 03:05 Sodium 132 L Potassium 5.0 Chloride 108 H Carbon Dioxide 19 L BUN 69 H Creatinine 2.24 H Glucose 179 H Calcium 8.7 Cardiac Enzymes 01/06/18 Range/Units 19:06 Troponin I 3.23 H* (< 0.04) ng/mL - ABG Interpretation ABG results: ABG ABG pH 7.34 pH Units (7.32-7.45) 01/06/18 09:07 ABG pCO2 39 mmHg (35-45) 01/06/18 09:07 ABG pO2 58 mmHg (85-104) L 01/06/18 09:07 ABG O2 Saturation 88 % (95-98) L 01/06/18 09:07 PT/INR, D-dimer PT 11.7 Seconds (9.4-12.1) 01/03/18 18:54 - Impressions Impressions Pulmonary Perfusion Imaging 01/07/18 10:00 IMPRESSION: Low probability for pulmonary embolism. D/ / Virgilio Devi MD / Virgilio Devi MD Interpreting Provider: Virgilio Devi MD - Diagnostic Studies Other Images Additional comments: NM/NM pul vent and perfuse IMPRESSION: Low probability for pulmonary embolism. Consult Discharge Plan - Plan Referrals: Casi Smalls, TEACHER OF FAMILY [employer] CONSUMER SCIENCE [Primary Care Provider] - <Federica Velazquez - Last Filed: 01/07/18 17:24> Date of Encounter: 01/07/18 - Assessment and plan (1) Elevated troponin Current Visit: Yes Status: Acute (2) UTI (urinary tract infection) Current Visit: Yes Status: Acute Qualifiers: Urinary tract infection type: site unspecified Hematuria presence: without hematuria Qualified Code(s): N39.0 - Urinary tract infection, site not specified (3) Diabetes mellitus Current Visit: Yes Status: Acute Qualifiers: Diabetes mellitus type: type 2 Diabetes mellitus long-term insulin use: without long-term use Diabetes mellitus complication status: without complication Qualified Code(s): E11.9 - Type 2 diabetes mellitus without complications (4) DVT prophylaxis Current Visit: Yes Status: Acute (5) CAD (coronary artery disease) Current Visit: Yes Status: Chronic Qualifiers: Coronary Disease-Associated Artery/Lesion type: [place] artery [place] vs. transplanted heart: [place] heart Associated angina: without angina Qualified Code(s): I25.10 - Atherosclerotic heart disease of [place] coronary artery without angina pectoris (6) Bradycardia Current Visit: Yes Status: Acute (7) [id number] kidney injury Current Visit: Yes Status: Acute Qualifiers: Acute renal failure type: unspecified Chronic kidney disease stage: stage 3 (moderate) Qualified Code(s): N17.9 - Acute kidney failure, unspecified; N18.3 - Chronic kidney disease, stage 3 (moderate) (8) Acute respiratory failure with hypoxia Current Visit: Yes Status: Resolved (9) Urinary retention Current Visit: Yes Status: Acute (10) Hyperkalemia Current Visit: Yes Status: Resolved - Time Spent With Patient Total time spent is greater than 50% in coordination of care (as documented) at patient's floor/unit and/or counseling patient: - Constitutional Vitals: Temp Pulse Resp BP Pulse Ox 97.5 F L 63 18 116/65 94 01/07/18 15:17 01/07/18 15:17 01/07/18 15:17 01/07/18 15:17 01/07/18 15:17 Internal Medicine: Result - Labs CBC & Chem 7: 01/07/18 12:23 01/07/18 03:05 Labs: Short CBC 01/07/18 01/07/18 Range/Units 03:05 12:23 WBC 10.5 (4.3-11.1) K/mcL Hgb 7.8 L D 8.7 L (11.5-15.4) g/dL Hct 24.0 L 27.4 L (35.3-44.9) % Plt Count 229 (140-400) K/mcL Neutrophils # 6.9 (1.6-8.9) K/mcL BMP 01/07/18 03:05 Sodium 132 L Potassium 5.0 Chloride 108 H Carbon Dioxide 19 L BUN 69 H Creatinine 2.24 H Glucose 179 H Calcium 8.7 Cardiac Enzymes 01/06/18 Range/Units 19:06 Troponin I 3.23 H* (< 0.04) ng/mL - ABG Interpretation ABG results: ABG ABG pH 7.34 pH Units (7.32-7.45) 01/06/18 09:07 ABG pCO2 39 mmHg (35-45) 01/06/18 09:07 ABG pO2 58 mmHg (85-104) L 01/06/18 09:07 ABG O2 Saturation 88 % (95-98) L 01/06/18 09:07 PT/INR, D-dimer PT 11.7 Seconds (9.4-12.1) 01/03/18 18:54 - Impressions Impressions Pulmonary Perfusion Imaging 01/07/18 10:00 IMPRESSION: Low probability for pulmonary embolism. D/ / Virgilio Devi MD / Virgilio Devi MD Interpreting Provider: Virgilio Devi MD - Attending Attestation I examined this patient and my medical decision-making was reviewed with the Resident Physician. I agree with the documented findings, disposition and treatment plan as described except to the extent set forth below.
[2018-01-07] MEDS: *HR* Heparin 5,000 UNIT/ML VIAL SQ SCH (17:02)
--- NOTE | 2018-01-07 17:06 | Electrocardiograph Report ---
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
--- NOTE | 2018-01-07 17:08 | Electrocardiograph Report ---
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
[2018-01-08 05:41] LABS: Hemoglobin 8.1 g/dL (11.5-15.4); Mean Corpuscular HGB Conc 32.4 g/dL (31.6-35.5); Mean Corpuscular Hemoglobin 29.1 pg (28.0-33.3); Mean Corpuscular Volume 89.9 fL (83.0-100.0); Mean Platelet Volume 10.7 fL (9.4-12.4); Platelet Count 243 K/mcL (140-400); Red Blood Count 2.78 M/mcL (3.82-4.97); Red Cell Distribution Width 13.2 % (11.5-14.5)
[2018-01-08 05:57] LABS: Platelet Estimate Normal (Normal)
[2018-01-08 05:58] LABS: Eosinophils # 0.2 K/mcL (0.0-0.6); Lymphocytes # 3.2 K/mcL (0.6-4.6); Monocytes # 0.7 K/mcL (0.0-1.3); Neutrophils # 6.9 K/mcL (1.6-8.9)
[2018-01-08 06:01] LABS: Calcium 9.1 mg/dL (8.6-10.3)
[2018-01-08] MEDS: Levothyroxine 25 MCG TABLET PO SCH (06:35)
[2018-01-08] MEDS: *HR* Heparin 5,000 UNIT/ML VIAL SQ SCH ×2 (06:36→16:09)
[2018-01-08] MEDS: Insulin LISPRO 300 UNITS/3 ML VIAL SQ SCH ×4 (07:26→21:29)
[2018-01-08] MEDS: Aspirin Enteric Coated 81 MG Tablet PO SCH (07:34)
[2018-01-08] MEDS: Insulin DETEMIR 100 UNIT/ML X5UNITS SQ SCH (07:35)
[2018-01-08] MEDS: Gabapentin 100 MG CAPSULE PO SCH ×2 (07:35→21:29)
[2018-01-08] MEDS: Furosemide 20 MG/2 ML VIAL IVP SCH ×2 (07:35→16:09)
[2018-01-08] MEDS: Diltiazem CD (24hr) 120 MG CAPSULE PO SCH (07:35)
--- NOTE | 2018-01-08 09:03 | Internal Med Progress Note ---
<Ernie Adams - Last Filed: 01/08/18 11:39> Date of Encounter: 01/08/18 Time of Encounter: 08:59 - Assessment and plan (1) NSTEMI (non-ST elevation myocardial infarction) Current Visit: Yes Status: Acute Assessment and plan: Patient had episode of chest pain and shortness of breath on evening of 01/[address] depression in lateral leads, stat troponin was 0.15 Clinical disposition improved with oxy mask and ativan Repeat troponins continued to increase on 01/06, however patient was asymptomatic Patient was determined to have type 2 NSTEMI due to increased demand from fluid overload and acute decompensated heart failure Patient is currently asymptomatic, cardiology has consulted Patient was started on heparin drip Monitoring patient clinical disposition, repeat troponins have not been ordered as they would not change treatment plan Heparin drip currently held due to drop in Hgb to 8.1, patient asymptomatic (2) Kfgrr-wx-mwnftlu kidney injury Current Visit: Yes Status: Acute Assessment and plan: Currently showing improvement after giving IV fluid hydration upon admission Fluids held after fluid overload Function improved with nephroprotective strategy Nephrology consulted, recommendations appreciated Avoid nephrotoxic medications. Monitor I/Os Mckay in place because of urinary retention. Lasix started yesterday because of fluid overload Will gently diurese again today and continue to monitor fluid status and renal labs Qualifiers: Acute renal failure type: unspecified Chronic kidney disease stage: stage 3 (moderate) Qualified Code(s): N17.9 - Acute kidney failure, unspecified; N18.3 - Chronic kidney disease, stage 3 (moderate) (3) Elevated troponin Current Visit: Yes Status: Acute Assessment and plan: Last troponin 3.23 o 01/06, likely due to acute heart failure Cardiology consulted, considering NSTEMI, recommended LHC Patient refused LHC, but after further education is reconsidering, cardiology will reassess if patient is candidate for LHC Patient currently asymptomatic, heparin drip held due to drop of Hgb to 8.1 At discharge plan for home Plavix and Aspirin until outpatient Cardiology follow up (4) UTI (urinary tract infection) Current Visit: Yes Status: Resolved Assessment and plan: Patient was suspected for UTI on admission, she was treated with Rocephin She has improved clinically, no longer symptomatic Her white count has not come down, but this may be due to renal and cardiac insult Will continue to monitor white count, Rocephin has been discontinued Qualifiers: Urinary tract infection type: site unspecified Hematuria presence: without hematuria Qualified Code(s): N39.0 - Urinary tract infection, site not specified (5) Diabetes mellitus Current Visit: Yes Status: Acute Assessment and plan: Continue Levemir 30 unit daily, Continue low dose sliding scale. Qualifiers: Diabetes mellitus type: type 2 Diabetes mellitus senior care insulin use: without senior care use Diabetes mellitus complication status: without complication Qualified Code(s): E11.9 - Type 2 diabetes mellitus without complications (6) DVT prophylaxis Current Visit: Yes Status: Acute Assessment and plan: heparin 5,000 units SQ BID, avoiding Lovenox due to renal function. (7) CAD (coronary artery disease) Current Visit: Yes Status: Chronic Assessment and plan: She has history of CABG, Continue asprin, plavix Cardiology is considering patient as candidate for [facility] Qualifiers: Coronary Disease-Associated Artery/Lesion type: torres martinez artery [place] vs. transplanted heart: torres martinez heart Associated angina: without angina Qualified Code(s): I25.10 - Atherosclerotic heart disease of torres martinez coronary artery without angina pectoris (8) Bradycardia Current Visit: Yes Status: Acute Assessment and plan: This is asymptomatic and likely the patients baseline as she is on cardizem and metoprolol, which we will continue with hold parameters (9) Acute respiratory failure with hypoxia Current Visit: Yes Status: Resolved Assessment and plan: Patient had few episodes of dyspnea during admission and she has had fluid overload. Cardiology was consulted for her prior complaint of chest pain and elevated troponin An echocardiogram showed LVEF 60% and had moderate LV diastolic dysfunction, and moderate pulmonary hypertension. Differentials include acute decompensated heart failure, anxiety attack, PE, vs other etiology. - BIPAP prn respiratory distress - IV Lasix now and will need close monitoring of renal function. - Would like to avoid Ativan as much as possible for anixety attacks due to need for monitoring - VQ scan not suspicious for PE - Patient is currently asymptomatic, without pertinent physical exam findings, respiratory failure was likely due to acute decompensated heart failure and fluid overload, patient is being gently diuresed and monitored (10) Urinary retention Current Visit: Yes Status: Acute Assessment and plan: Patient on Flomax with Mckay inserted Will attempt void trial today (11) Hyperkalemia Current Visit: Yes Status: Resolved Assessment and plan: Resolved, was likely due to hemolysis Continuing to monitor with daily BMP (12) Acute decompensated heart failure Current Visit: Yes Status: Acute Assessment and plan: Patient presented for GABY on CKD for which she was given IVF She developed physical exam findings and laboratory findings of acute decompensated heart failure and so her IVF were stopped She has since had one episode of acute respiratory failure likely due to fluid overload and elevated troponins Her renal function has improved so she was started on lasix 20 diuresis to improve her fluid status She is currently asymptomatic, without pertinent physical exam findings Cardiology is on board, she is under consideration to be a [facility] candidate, however she did recently have a drop in Hgb to 8.1, and heparin drip was stopped She is currently stable, the plan will be to recheck Hgb this afternoon and monitor clinical disposition - Time Spent With Patient Total time spent is greater than 50% in coordination of care (as documented) at patient's floor/unit and/or counseling patient: - Subjective Interval history: No acute events overnight. Patient denies chest pain, shortness of breath, fever , chills, nausea or vomiting. She informed me she was not confident about her understanding of the C proposed to her, and on further explanation she is reconsidering. I advised her to discuss it with her family and cardiology again today. I let cardiology know she is reconsidering and they said they would broach it with her again. - Constitutional Vitals: Temp Pulse Resp BP Pulse Ox 97.9 F 68 15 114/62 92 01/08/18 06:50 01/08/18 06:50 01/08/18 06:50 01/08/18 06:50 01/08/18 06:50 General appearance: Present: A&O X 3, no acute distress Exam: No acute distress Alert and oriented x3 Heart in regular rate and rhythm lungs clear to auscultation abdomen soft and non tender legs non-edematous Internal Medicine: Result - Labs CBC & Chem 7: 01/08/18 05:05 01/08/18 05:05 Labs: Short CBC 01/07/18 01/08/18 Range/Units 12:23 05:05 WBC 11.5 H (4.3-11.1) K/mcL Hgb 8.7 L 8.1 L (11.5-15.4) g/dL Hct 27.4 L 25.0 L (35.3-44.9) % Plt Count 243 (140-400) K/mcL Neutrophils # 6.9 (1.6-8.9) K/mcL BMP 01/08/18 05:05 Sodium 134 L Potassium 5.0 Chloride 105 Carbon Dioxide 24 BUN 67 H Creatinine 2.11 H Glucose 93 Calcium 9.1 - ABG Interpretation ABG results: ABG ABG pH 7.34 pH Units (7.32-7.45) 01/06/18 09:07 ABG pCO2 39 mmHg (35-45) 01/06/18 09:07 ABG pO2 58 mmHg (85-104) L 01/06/18 09:07 ABG O2 Saturation 88 % (95-98) L 01/06/18 09:07 PT/INR, D-dimer PT 11.7 Seconds (9.4-12.1) 01/03/18 18:54 - Impressions Impressions Pulmonary Perfusion Imaging 01/07/18 10:00 IMPRESSION: Low probability for pulmonary embolism. D/ / Virgilio Devi MD / Virgilio Devi MD Interpreting Provider: Virgilio Devi MD Consult Discharge Plan - Plan Referrals: Casi Smalls CNP [Primary Care Provider] - <Federica Velazquez - Last Filed: 01/08/18 23:48> Date of Encounter: 01/08/18 - Assessment and plan (1) Elevated troponin Current Visit: Yes Status: Acute (2) UTI (urinary tract infection) Current Visit: Yes Status: Resolved Qualifiers: Urinary tract infection type: site unspecified Hematuria presence: without hematuria Qualified Code(s): N39.0 - Urinary tract infection, site not specified (3) Diabetes mellitus Current Visit: Yes Status: Acute Qualifiers: Diabetes mellitus type: type 2 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 transplanted heart: torres martinez heart Associated angina: without angina Qualified Code(s): I25.10 - Atherosclerotic heart disease of torres martinez coronary artery without angina pectoris (6) Bradycardia Current Visit: Yes Status: Acute (7) Qdcrg-ip-[id number] kidney injury Current Visit: Yes Status: Acute Qualifiers: Acute renal failure type: unspecified Chronic kidney disease stage: stage 3 (moderate) Qualified Code(s): N17.9 - Acute kidney failure, unspecified; N18.3 - Chronic kidney disease, stage 3 (moderate) (8) Acute respiratory failure with hypoxia Current Visit: Yes Status: Resolved (9) Urinary retention Current Visit: Yes Status: Acute (10) Hyperkalemia Current Visit: Yes Status: Resolved (11) NSTEMI (non-ST elevation myocardial infarction) Current Visit: Yes Status: Acute (12) Acute decompensated heart failure Current Visit: Yes Status: Acute - Time Spent With Patient Total time spent is greater than 50% in coordination of care (as documented) at patient's floor/unit and/or counseling patient: - Constitutional Vitals: Temp Pulse Resp BP Pulse Ox 98.1 F 72 16 129/57 96 01/08/18 20:32 01/08/18 20:32 01/08/18 20:32 01/08/18 20:32 01/08/18 20:32 Internal Medicine: Result - Labs CBC & Chem 7: 01/08/18 14:52 01/08/18 05:05 Labs: Short CBC 01/08/18 01/08/18 Range/Units 05:05 14:52 WBC 11.5 H 13.8 H (4.3-11.1) K/mcL Hgb 8.1 L 9.4 L (11.5-15.4) g/dL Hct 25.0 L 27.7 L (35.3-44.9) % Plt Count 243 254 (140-400) K/mcL Neutrophils # 6.9 (1.6-8.9) K/mcL BMP 01/08/18 05:05 Sodium 134 L Potassium 5.0 Chloride 105 Carbon Dioxide 24 BUN 67 H Creatinine 2.11 H Glucose 93 Calcium 9.1 - ABG Interpretation ABG results: ABG ABG pH 7.34 pH Units (7.32-7.45) 01/06/18 09:07 ABG pCO2 39 mmHg (35-45) 01/06/18 09:07 ABG pO2 58 mmHg (85-104) L 01/06/18 09:07 ABG O2 Saturation 88 % (95-98) L 01/06/18 09:07 PT/INR, D-dimer PT 11.7 Seconds (9.4-12.1) 01/03/18 18:54 - Attending Attestation I examined this patient and my medical decision-making was reviewed with the Resident Physician. I agree with the documented findings, disposition and treatment plan as described except to the extent set forth below. Earlier in the day family was at bedside and wanted to proceed with [facility]. I have discussed with Cardiology and we have discussed during rounds. They have evaluated patient. On my exam her lungs are clear to auscultation which is an improvement since yesterday. She does not have any extremity edema or JVD. Continue diuresis with caution to renal function.
--- NOTE | 2018-01-08 09:28 | Nephrology Progress Note ---
Date of Encounter: 01/08/18 Time of Encounter: 09:25 - Assessment and Plan (1) CKD (chronic kidney disease) stage 4, GFR 15-29 ml/min Current Visit: Yes Status: Acute Baseline GFR 26 is 22 today. Scr 2.11 down from 2.24, improving. Uop 2150 yesterday and 550 today with Mckay Catheter. Was started on IV lasix for diuresis yesterday, agree will continue to watch renal function. There was question as to if she should be on fluid restriction, spoke with primary team and agree with 1.5 Liter fluid restriction. Recommend renal diet to limit potassium. (2) Urinary retention Current Visit: Yes Status: Acute Improved with Mckay Catheter. (3) Hyperkalemia Current Visit: Yes Status: Resolved K is 5 today, will continue to trend. Diet changed to low potassium/cardiac with fluid restriction. (4) Elevated troponin Current Visit: Yes Status: Acute Troponin 01/06/18 was 3.23. Cardiology recommended [facility], but it seems she would like medical management at this time. She is still discussing things with her family. Subjective Principal diagnosis: Chest pain Interval history: Pt seen and examined. NAD, denies nausea/vomiting or chest pain. Objective - Vital Signs Vital signs: Vital Signs Temp Pulse Resp BP Pulse Ox 01/08/18 06:50 97.9 F 68 15 114/62 92 01/08/18 04:06 98.4 F 64 18 116/71 94 01/07/18 23:39 98.4 F 64 18 115/70 94 01/07/18 20:18 98.4 F 79 18 146/77 92 01/07/18 15:17 97.5 F L 63 18 116/65 94 01/07/18 11:16 97.6 F 63 18 116/71 92 Intake and Output 01/07/18 01/08/18 01/08/18 23:59 07:59 15:59 Intake Total 0 / 0 Output Total 700 / 700 550 / 550 Balance -700 / -700 -550 / -550 Intake: Oral 0 / 0 Output: Urine 0 / 0 Catheter 700 / 700 550 / 550 Other: Stool Size Small Stool Consistency loose Stool Color Brown Weight 75.6 kg Blood Glucose* 212 89 Patient Weight 01/08/18 23:59 Weight 75.6 kg - General Appearance General appearance: Present: chronically ill EENT: Present: ATNC, hearing intact Neck: Present: supple Respiratory: Present: clear Cardiology: Present: no edema, normal S1, normal S2 Gastrointestinal: Present: normoactive bowel sounds, no tenderness, no guarding Integumentary: Present: no rash, warm and dry Neurologic: Present: alert and oriented x3 Psychiatric: Present: mood/affect appropriate, cooperative - Lab 01/08/18 05:05 01/08/18 05:05 Most recent lab results ABG pH 7.34 pH Units (7.32-7.45) 01/06/18 09:07 ABG pCO2 39 mmHg (35-45) 01/06/18 09:07 ABG pO2 58 mmHg (85-104) L 01/06/18 09:07 ABG HCO3 21 mEq/L (21-27) 01/06/18 09:07 ABG O2 Saturation 88 % (95-98) L 01/06/18 09:07 Calcium 9.1 mg/dL (8.6-10.3) 01/08/18 05:05 Phosphorus 4.2 mg/dL (2.7-4.5) 01/02/18 04:58 Magnesium 2.2 mg/dL (1.6-2.6) 01/02/18 04:58 Urine Creatinine 55 mg/dL 01/04/18 14:46 Urine Sodium 51.1 mEq/L 01/04/18 14:46 Consult Discharge Plan - Plan Referrals: Casi Smalls, [employer]ICE [employer] [Primary Care Provider] -
[2018-01-08 15:20] LABS: Hematocrit 27.7 % (35.3-44.9); Hemoglobin 9.4 g/dL (11.5-15.4); Mean Corpuscular HGB Conc 33.9 g/dL (31.6-35.5); Mean Corpuscular Hemoglobin 29.7 pg (28.0-33.3); Mean Corpuscular Volume 87.7 fL (83.0-100.0); Mean Platelet Volume 11.3 fL (9.4-12.4); Platelet Count 254 K/mcL (140-400); Red Blood Count 3.16 M/mcL (3.82-4.97); Red Cell Distribution Width 13.3 % (11.5-14.5)
--- NOTE | 2018-01-08 16:14 | Event Note ---
Date of Encounter: 01/08/18 Time of Encounter: 16:10 - Cardiology Event Note Asked by primary service to discuss LHC with patient again. NSTEMI noted. Patient currently chest pain free. Heparin drip had been stopped due to worsening anemia. Also noted GABY on CKD, renal function not quite to baseline. Cardiology would recommend LHC, however would recommend be stable from anemia and renal standpoint. Patient educated at length regarding recommendations. Patient educated on risks of LHC and educated she would be at a higher risk of complications due to anemia, renal function. Patient states understanding and also states she is refusing LHC. Patient states she did not ever want to have LHC, however her kids thouht she should. Patient is agreeable to follow with cardiology in outpatient setting. Follow up set. Will re-evaluate in outpatient setting. Discussed and reviewed with .
[2018-01-09 04:00] LABS: Hematocrit 26.2 % (35.3-44.9); Hemoglobin 8.4 g/dL (11.5-15.4); Mean Corpuscular HGB Conc 32.1 g/dL (31.6-35.5); Mean Corpuscular Hemoglobin 28.7 pg (28.0-33.3); Mean Corpuscular Volume 89.4 fL (83.0-100.0); Mean Platelet Volume 10.7 fL (9.4-12.4); Platelet Count 259 K/mcL (140-400); Red Blood Count 2.93 M/mcL (3.82-4.97); Red Cell Distribution Width 13.2 % (11.5-14.5)
[2018-01-09 04:01] LABS: Nucleated Red Blood Cells 0.2 /100 WBC (0)
[2018-01-09 04:22] LABS: Calcium 9.1 mg/dL (8.6-10.3); Potassium 5.5 mEq/L (3.5-5.1)
[2018-01-09 04:29] LABS: Eosinophils # 0.5 K/mcL (0.0-0.6); Lymphocytes # 1.7 K/mcL (0.6-4.6); Monocytes # 1.2 K/mcL (0.0-1.3); Neutrophils # 8.4 K/mcL (1.6-8.9)
[2018-01-09 04:30] LABS: Large Platelets Present (Not Present); Platelet Estimate Normal (Normal)
[2018-01-09] MEDS: *HR* Heparin 5,000 UNIT/ML VIAL SQ SCH ×2 (06:00→16:56)
[2018-01-09] MEDS: Levothyroxine 25 MCG TABLET PO SCH (06:00)
[2018-01-09] MEDS: Insulin LISPRO 300 UNITS/3 ML VIAL SQ SCH ×3 (07:35→16:56)
[2018-01-09] MEDS: Aspirin Enteric Coated 81 MG Tablet PO SCH (08:36)
[2018-01-09] MEDS: Diltiazem CD (24hr) 120 MG CAPSULE PO SCH (08:36)
[2018-01-09] MEDS: Gabapentin 100 MG CAPSULE PO SCH ×2 (08:36→21:05)
[2018-01-09] MEDS: Insulin DETEMIR 100 UNIT/ML X5UNITS SQ SCH (08:37)
[2018-01-09] MEDS: Furosemide 20 MG/2 ML VIAL IVP SCH (09:22)
--- NOTE | 2018-01-09 09:29 | Nephrology Progress Note ---
Date of Encounter: 01/09/18 Time of Encounter: 09:29 - Assessment and Plan (1) CKD (chronic kidney disease) stage 4, GFR 15-29 ml/min Current Visit: Yes Status: Acute Baseline GFR 26 is 21 today Scr 2.23 up from 2.11. Uop 1950 yesterday and 450 already today with Mukherjee Catheter. Primary team to order to have mukherjee cath removed to assess if she has urinary retention. Is a patient of Dr. Blanchard and she will follow up with him in the office. Continue to avoid nephrotoxins and renal dose all medications. (2) Urinary retention Current Visit: Yes Status: Acute Improved with Mukherjee Catheter. See above. (3) Hyperkalemia Current Visit: Yes Status: Resolved K is 5.5 today, Kayexalate ordered by primary team. Diet changed to low potassium/cardiac with fluid restriction. (4) Elevated troponin Current Visit: Yes Status: Acute Refused LHC at this time, will f/u with cardio. Subjective Principal diagnosis: Chest pain Interval history: Pt seen and examined. NAD, denies nausea/vomiting or chest pain. Objective - Vital Signs Vital signs: Vital Signs Temp Pulse Resp BP Pulse Ox 01/09/18 08:47 96 01/09/18 06:39 98.7 F 60 18 118/61 96 01/09/18 04:05 97.6 F 63 16 107/62 95 01/09/18 00:46 97.9 F 69 15 129/64 98 01/08/18 20:32 98.1 F 72 16 129/57 96 01/08/18 15:34 98.1 F 76 15 118/55 98 01/08/18 11:37 97.6 F 64 16 104/51 94 Intake and Output 01/08/18 01/09/18 01/09/18 23:59 07:59 15:59 Intake Total 600 / 600 240 / 240 Output Total 1400 / 1400 450 / 450 250 / 250 Balance -1400 / -1400 150 / 150 -10 / -10 Intake: Oral 600 / 600 240 / 240 Output: Catheter 1400 / 1400 450 / 450 250 / 250 Other: Meal Breakfast Percent of Meal Consumed 75% Weight 72.1 kg Blood Glucose* 200 121 Patient Weight 01/09/18 23:59 Weight 72.1 kg - General Appearance General appearance: Present: well-developed, well-nourished EENT: Present: ATNC, hearing intact, vision intact Neck: Present: supple Respiratory: Present: clear Cardiology: Present: no edema, normal S1, normal S2 Gastrointestinal: Present: normoactive bowel sounds, no tenderness, no guarding Integumentary: Present: no rash, warm and dry Neurologic: Present: alert and oriented x3 Psychiatric: Present: mood/affect appropriate, cooperative - Lab 01/09/18 03:24 01/09/18 03:24 Most recent lab results ABG pH 7.34 pH Units (7.32-7.45) 01/06/18 09:07 ABG pCO2 39 mmHg (35-45) 01/06/18 09:07 ABG pO2 58 mmHg (85-104) L 01/06/18 09:07 ABG HCO3 21 mEq/L (21-27) 01/06/18 09:07 ABG O2 Saturation 88 % (95-98) L 01/06/18 09:07 Calcium 9.1 mg/dL (8.6-10.3) 01/09/18 03:24 Phosphorus 4.2 mg/dL (2.7-4.5) 01/02/18 04:58 Magnesium 2.2 mg/dL (1.6-2.6) 01/02/18 04:58 Urine Creatinine 55 mg/dL 01/04/18 14:46 Urine Sodium 51.1 mEq/L 01/04/18 14:46 Consult Discharge Plan - Plan Referrals: Casi Smalls, FLAQUITA [Primary Care Provider] -
--- NOTE | 2018-01-09 15:27 | Internal Med Progress Note ---
Date of Encounter: 01/09/18 Time of Encounter: 09:25 - Assessment and plan (1) NSTEMI (non-ST elevation myocardial infarction) Current Visit: Yes Status: Acute Assessment and plan: Patient with chest pain, elevated Troponin upto 3.23; Cardiology consulted, recommended LHC but has worsening renal dysfunction and anemia, and patient also refuses the procedure. Continue ASA, Plavix, statin, beta zachery; received IV Heparin drip; continue Telemetry monitoring; (2) Acute decompensated heart failure Current Visit: Yes Status: Acute Assessment and plan: Echo showed preserved EF, moderate LV diastolic dysfunction, moderate pulmonary HTN; received IV Lasix, held this morning due to slightly worse creatinine; symptoms of CHF developed after receiving IV hydration for GABY per previous notes; continue beta zachery, fluid restriction, urine output monitoring, Telemetry; (3) UTI (urinary tract infection) Current Visit: Yes Status: Ruled-out Assessment and plan: received IV Rocephin for possible UTI but blood and urine cultures remain negative; Qualifiers: Urinary tract infection type: site unspecified Hematuria presence: without hematuria Qualified Code(s): N39.0 - Urinary tract infection, site not specified (4) Diabetes mellitus Current Visit: Yes Status: Chronic Assessment and plan: preprandial blood sugars noted to be elevated; will increase SSI and continue blood glucose monitoring and basal insulin; diabetic diet; Qualifiers: Diabetes mellitus type: type 2 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 transplanted heart: [place] heart Associated angina: without angina Qualified Code(s): I25.810 - Atherosclerosis of coronary artery bypass graft(s) without angina pectoris (7) Axayl-jw-puzuxey kidney injury Current Visit: Yes Status: Acute Assessment and plan: likely prerenal; improving with IV hydration; serum creatinine slightly worse at 2.23 today, but mostly stable over the last 2-3 days; Nephrology on board; avoid nephrotoxins; follows with Nephrology as outpatient; Qualifiers: Acute renal failure type: unspecified Chronic kidney disease stage: stage 3 (moderate) Qualified Code(s): N17.9 - Acute kidney failure, unspecified; N18.3 - Chronic kidney disease, stage 3 (moderate) (8) Acute respiratory failure with hypoxia Current Visit: Yes Status: Resolved (9) Urinary retention Current Visit: Yes Status: Acute Assessment and plan: failed voiding trial once during this admission; will try again today; (10) Hyperkalemia Current Visit: Yes Status: Acute Assessment and plan: persistent; will give a dose of Kayexalate; avoid ACEI/ARB; - Time Spent With Patient Total time spent is greater than 50% in coordination of care (as documented) at patient's floor/unit and/or counseling patient: - Subjective Interval history: Reports feeling better; no chest pain, palpitations, cough; improved shortness of breath and leg swelling; - Constitutional Vitals: Temp Pulse Resp BP Pulse Ox 98.6 F 66 18 118/56 96 01/09/18 10:51 01/09/18 10:51 01/09/18 10:51 01/09/18 10:51 01/09/18 10:51 General appearance: Present: A&O X 3, answers questions appropriately - Respiratory Respiratory exam: Present: CTAB (coarse breath sounds B/L). Absent: accessory muscle use, rales, rhonchi, wheezes - Cardiovascular Cardiovascular exam: Present: RRR, +S1, +S2. Absent: diastolic murmur, gallop, rubs, systolic murmur - GI/Abdominal GI/Abdominal exam: Present: normal bowel sounds, soft, no peritoneal signs. Absent: distended, tenderness - Extremities Exam Extremities exam: Present: warm, radial pulses palpable and symmetrical. Absent : calf tenderness, cyanotic, pedal edema Internal Medicine: Result - Labs CBC & Chem 7: 01/09/18 03:24 01/09/18 03:24 Labs: Short CBC 01/08/18 01/09/18 Range/Units 14:52 03:24 WBC 13.8 H 12.3 H (4.3-11.1) K/mcL Hgb 9.4 L 8.4 L (11.5-15.4) g/dL Hct 27.7 L 26.2 L (35.3-44.9) % Plt Count 254 259 (140-400) K/mcL Neutrophils # 8.4 (1.6-8.9) K/mcL BMP 01/09/18 03:24 Sodium 134 L Potassium 5.5 H Chloride 104 Carbon Dioxide 22 L BUN 67 H Creatinine 2.23 H Glucose 124 H Calcium 9.1 - ABG Interpretation ABG results: ABG ABG pH 7.34 pH Units (7.32-7.45) 01/06/18 09:07 ABG pCO2 39 mmHg (35-45) 01/06/18 09:07 ABG pO2 58 mmHg (85-104) L 01/06/18 09:07 ABG O2 Saturation 88 % (95-98) L 01/06/18 09:07 PT/INR, D-dimer PT 11.7 Seconds (9.4-12.1) 01/03/18 18:54 Consult Discharge Plan - Plan Referrals: Casi Smalls, CARDIOVASCULAR TECH [Primary Care Provider] -
[2018-01-09] MEDS ORDERED: Insulin LISPRO 300 UNITS/3 ML VIAL SQ SCH (21:00)
[2018-01-10 04:49] LABS: Hematocrit 25.9 % (35.3-44.9); Hemoglobin 8.8 g/dL (11.5-15.4); Mean Corpuscular Hemoglobin 30.4 pg (28.0-33.3); Mean Corpuscular Volume 89.6 fL (83.0-100.0); Mean Platelet Volume 10.8 fL (9.4-12.4); Monocytes # 1.1 K/mcL (0.0-1.3); Platelet Count 272 K/mcL (140-400); Red Blood Count 2.89 M/mcL (3.82-4.97); Red Cell Distribution Width 13.3 % (11.5-14.5)
[2018-01-10 05:03] LABS: Calcium 8.9 mg/dL (8.6-10.3); Magnesium 1.8 mg/dL (1.6-2.6); Potassium 5.4 mEq/L (3.5-5.1)
[2018-01-10 05:15] LABS: Lymphocytes # 1.4 K/mcL (0.6-4.6); Neutrophils # 10.7 K/mcL (1.6-8.9); Platelet Estimate Normal (Normal)
[2018-01-10] MEDS: *HR* Heparin 5,000 UNIT/ML VIAL SQ SCH (05:32)
[2018-01-10] MEDS: Levothyroxine 25 MCG TABLET PO SCH (05:33)
[2018-01-10] MEDS: Insulin LISPRO 300 UNITS/3 ML VIAL SQ SCH ×2 (07:59→11:33)
[2018-01-10] MEDS: Diltiazem CD (24hr) 120 MG CAPSULE PO SCH (08:58)
[2018-01-10] MEDS: Aspirin Enteric Coated 81 MG Tablet PO SCH (08:58)
[2018-01-10] MEDS: Gabapentin 100 MG CAPSULE PO SCH (08:58)
[2018-01-10] MEDS: Insulin DETEMIR 100 UNIT/ML X5UNITS SQ SCH (08:58)
--- NOTE | 2018-01-10 09:46 | Nephrology Progress Note ---
Date of Encounter: 01/10/18 Time of Encounter: 09:43 - Assessment and Plan (1) CKD (chronic kidney disease) stage 4, GFR 15-29 ml/min Current Visit: Yes Status: Acute Baseline GFR 26 is 25 today. Is a patient of Dr. Blanchard and she will follow up with him in the office in 4 -6 weeks, she states she already has an appointment scheduled. BMP in 1 week. Continue to avoid nephrotoxins and renal dose all medications. (2) Urinary retention Current Visit: Yes Status: Acute Mckay ordered to be d/isela today by primary. (3) Hyperkalemia Current Visit: Yes Status: Acute K is 5.4 today, Kayexalate ordered by primary team. Diet changed to low potassium/cardiac with fluid restriction. (4) Elevated troponin Current Visit: Yes Status: Acute F/U with cardio. Subjective Principal diagnosis: Chest pain Interval history: Pt seen and examined. NAD, denies nausea/vomiting or chest pain. Wants to go home. Objective - Vital Signs Vital signs: Vital Signs Temp Pulse Resp BP Pulse Ox 01/10/18 07:51 98.2 F 75 18 108/49 92 01/10/18 04:23 98.1 F 73 16 116/73 96 01/10/18 01:12 97.8 F 69 16 124/68 94 01/09/18 20:27 97.9 F 76 17 145/68 97 01/09/18 19:27 98 01/09/18 15:43 98.9 F 75 18 122/70 98 01/09/18 10:51 98.6 F 66 18 118/56 96 Intake and Output 01/09/18 01/10/18 01/10/18 23:59 07:59 15:59 Intake Total 480 / 480 Output Total 250 / 250 700 / 700 325 / 325 Balance 230 / 230 -700 / -700 -325 / -325 Intake: Oral 480 / 480 Output: Catheter 250 / 250 700 / 700 325 / 325 Other: Meal Dinner Percent of Meal Consumed 100% Stool Size Copious Stool Consistency loose Stool Color Brown # Bowel Movements 1 Weight 71.3 kg Blood Glucose* 165 111 Patient Weight 01/10/18 23:59 Weight 71.3 kg - General Appearance General appearance: Present: chronically ill, frail EENT: Present: ATNC, hearing intact, vision intact Neck: Present: supple Respiratory: Present: clear Cardiology: Present: no edema, normal S1, normal S2 Gastrointestinal: Present: normoactive bowel sounds, no tenderness Integumentary: Present: no rash, warm and dry Neurologic: Present: alert and oriented x3 Psychiatric: Present: mood/affect appropriate, cooperative - Lab 01/10/18 04:40 01/10/18 04:40 Most recent lab results ABG pH 7.34 pH Units (7.32-7.45) 01/06/18 09:07 ABG pCO2 39 mmHg (35-45) 01/06/18 09:07 ABG pO2 58 mmHg (85-104) L 01/06/18 09:07 ABG HCO3 21 mEq/L (21-27) 01/06/18 09:07 ABG O2 Saturation 88 % (95-98) L 01/06/18 09:07 Calcium 8.9 mg/dL (8.6-10.3) 01/10/18 04:40 Phosphorus 4.2 mg/dL (2.7-4.5) 01/02/18 04:58 Magnesium 1.8 mg/dL (1.6-2.6) 01/10/18 04:40 Urine Creatinine 55 mg/dL 01/04/18 14:46 Urine Sodium 51.1 mEq/L 01/04/18 14:46 Consult Discharge Plan - Plan Referrals: Casi Smalls, VENDING TECHNICIAN [Primary Care Provider] -
--- NOTE | 2018-01-10 10:04 | Discharge Summary ---
- NOTES TO OUTPATIENT PROVIDER Notes to Outpatient Provider: GABY on CKD, acute CHF; persistent mild hyperKalemia, started on sodium bicarbonate; needs f/up BMP in 1 week and Nephrology and Cardiology f/ups; Orders not resulted at time of discharge: Pending orders 01/07/18 07:37 Occult Blood,Stool [BF] Routine Date of Encounter: 01/10/18 Time of Encounter: 10:02 - Discharge Diagnosis (1) NSTEMI (non-ST elevation myocardial infarction) Priority: Primary Status: Acute (2) Acute decompensated heart failure Priority: Primary Status: Acute (3) Diabetes mellitus Priority: Secondary Status: Chronic Qualifiers: Diabetes mellitus type: type 2 Diabetes mellitus manager intermediate insulin use: without mcc use Diabetes mellitus complication status: with hyperglycemia Qualified Code(s): E11.65 - Type 2 diabetes mellitus with hyperglycemia (4) CAD (coronary artery disease) Priority: Secondary Status: Chronic Qualifiers: Coronary Disease-Associated Artery/Lesion type: bypass graft [place] vs. transplanted heart: [place] heart Associated angina: without angina Qualified Code(s): I25.810 - Atherosclerosis of coronary artery bypass graft(s) without angina pectoris (5) [id number] kidney injury Priority: Primary Status: Acute Qualifiers: Acute renal failure type: unspecified Chronic kidney disease stage: stage 3 (moderate) Qualified Code(s): N17.9 - Acute kidney failure, unspecified; N18.3 - Chronic kidney disease, stage 3 (moderate) (6) Acute respiratory failure with hypoxia Priority: Primary Status: Resolved (7) Urinary retention Priority: Primary Status: Acute (8) Hyperkalemia Priority: Primary Status: Chronic Hospital course: Ms. Pickett is a 82 year old female with the above medical problems, admitted with generalized weakness. She was noted to have UTI and GABY on inderlying CKD. She was given empiric antibiotics, but eventually urine culture was negative. Nephrology was consulted, she received IV hydration and then developed dyspnea and elevated Troponin. She was noted to have acute exacerbation of CHF and possible demand ischemia. Echo showed preserved EF, moderate LV diastolic dysfunction, moderate pulmonary HTN; Cardiology was consulted. She received anticoagulation with IV Heparin drip, which was then held due to worsening anemia. She refused LHC and was continued on ASA and Plavix. She received a few doses of IV Lasix. Her Hb and serum creatinine are stable at this time. She seems to have chronic hyperkalemia, being started on oral sodium bicarbonate per Nephrology. SHe insists on being discharged home today. SHe is otherwise stable, encouraged to have her BMP drawn in 1 week, and f/up with as scheduled. HHS are being resumed. Discharge discussed with: patient, fashion consultant - Time Spent with Patient Total time spent providing and/or coordinating discharge services: Greater than 30 minutes (45 min) - Discharge Medications Prescriptions: Aspirin Enteric Coated [Aspirin EC] 81 mg PO DAILY #30 tablet. Atorvastatin [Lipitor] 40 mg PO HS #30 tablet Furosemide [Lasix] 40 mg PO DAILY #30 tablet Sodium Bicarbonate 650 mg PO BID #30 tablet Home Medications: Clopidogrel [Plavix] 75 mg PO DAILY 07/03/16 [History] Diltiazem HCl [Diltiazem ER] 120 mg PO DAILY 07/03/16 [History] Gabapentin [Neurontin] 100 mg PO BID 07/03/16 [History] Levothyroxine [Synthroid] 25 mcg PO 0630 07/03/16 [History] Metoprolol [Lopressor] 50 mg PO BID 07/03/16 [History] Timolol Maleate 0.25% 1 drop RIGHT EYE BID 07/03/16 [History] Ubidecarenone/Vitamin E [Co Q-10 50 mg Softgel] 1 tab PO DAILY 07/03/16 [History ] Insulin DETEMIR [Levemir] 30 units SQ DAILY 01/01/18 [History] Lisinopril 2.5 mg PO DAILY 01/01/18 [History] Aspirin Enteric Coated [Aspirin EC] 81 mg PO DAILY #30 tablet. 01/10/18 [Rx] Atorvastatin [Lipitor] 40 mg PO HS #30 tablet 01/10/18 [Rx] Furosemide [Lasix] 40 mg PO DAILY #30 tablet 01/10/18 [Rx] Sodium Bicarbonate 650 mg PO BID #30 tablet 01/10/18 [Rx] Allergies/Adverse Reactions: 3 Allergy/AdvReac Type Severity Reaction Status Date / Time No Known Allergies Allergy Verified 01/01/18 15:34 Date of admission: 01/01/18 15:43 Primary care physician: Casi Smalls CNP Consults: 01/02/18 17:44 Consult to Nephrology [CONS] Routine Consulting Provider: Kidney Radha/RUDI/JEYSON/JOYCE Reason for Consult: GABY on CKD Call Completed: Yes 01/03/18 18:18 Consult to Cardiology [CONS] Routine Comment: Consulting Provider: Luigi Garcia Reason for Consult: Chest pain, elevated troponin Call Completed: No 01/04/18 09:20 Consult to Occupational Therapy [CONS] Routine Comment: Evaluate, develop and implement POC Reason for Consult: Evaluate, develop and implement POC Does patient have active BEDREST order?: No Is patient medically & hemodynamically stable?: Yes Consult to Physical Therapy [CONS] Routine Comment: Evaluate, develop and implement POC Reason for Consult: Disposition planning. Therapy - weakness in bed. Does patient have active BEDREST order?: No Is patient medically & hemodynamically stable?: Yes 01/06/18 15:56 Consult to Cardiology [CONS] Routine Comment: Consulting Provider: Luigi Garcia Reason for Consult: CP, elevated trop Call Completed: Yes Discharging clinician: Carmen Nice Anticipated date of discharge: 01/10/18 - Constitutional Vitals: Temp Pulse Resp BP Pulse Ox 98.2 F 75 18 108/49 92 01/10/18 07:51 01/10/18 07:51 01/10/18 07:51 01/10/18 07:51 01/10/18 07:51 General appearance: Present: A&O X 3, answers questions appropriately - Cardiovascular Cardiovascular exam: Present: RRR, +S1, +S2. Absent: diastolic murmur, gallop, rubs, systolic murmur - Patient Status Disposition: Home Health Service Condition: Fair Functional capacity at discharge: uses cane/walker Overall status at discharge: patient is progressing back to baseline - Discharge Instructions Follow Up With: Casi Smalls CNP [Primary Care Provider] - 01/16/18 3:20 pm (Please follow up as schedule...) Additional Instructions: F/up[ with PCP in 1-2 weeks F/up with Nephrology in 3-4 weeks F/up with Cardiology as scheduled BMP in 1 week - Diet and Activity Activity: as per physical therapy Diet: diabetic diet, low fat, low cholesterol, low salt diet, other (fluid restriction to 1.5L/day)
--- NOTE | 2018-01-10 10:12 | Physician Discharge Referral ---
Home Health/Hosp Referral Info Transfer to: Home Health Attending Provider: Carmen Nice Provider in Charge Post Discharge: PCP - Diagnosis (1) NSTEMI (non-ST elevation myocardial infarction) Priority: Primary Status: Acute (2) Acute decompensated heart failure Priority: Primary Status: Acute (3) Diabetes mellitus Priority: Secondary Status: Chronic (4) CAD (coronary artery disease) Priority: Secondary Status: Chronic (5) [id number] kidney injury Priority: Primary Status: Acute (6) Acute respiratory failure with hypoxia Priority: Primary Status: Resolved (7) Urinary retention Priority: Primary Status: Acute (8) Hyperkalemia Priority: Primary Status: Chronic - Respiratory Orders Smoking Cessation: Smoking cessation has been advised. For more information, call the [employer] Tobacco Quit Line at 7-167-LZHB-NOW. - Diet/Nutrition Diet/Nutrition Orders: Renal, Cardiac (fluid restriction to 1.5L/day), No Concentrated Sweets (diabetic) - Activity Activity Orders: Ambulate - Services Needed Following services are medically necessary services: Nursing, Home Health Aide, Physical Therapy, Occupational Therapy - Transfer Medications Prescriptions: Aspirin Enteric Coated [Aspirin EC] 81 mg PO DAILY #30 tablet. Atorvastatin [Lipitor] 40 mg PO HS #30 tablet Furosemide [Lasix] 40 mg PO DAILY #30 tablet Sodium Bicarbonate 650 mg PO BID #30 tablet Home Medications: Clopidogrel [Plavix] 75 mg PO DAILY 07/03/16 [History] Diltiazem HCl [Diltiazem ER] 120 mg PO DAILY 07/03/16 [History] Gabapentin [Neurontin] 100 mg PO BID 07/03/16 [History] Levothyroxine [Synthroid] 25 mcg PO 0630 07/03/16 [History] Metoprolol [Lopressor] 50 mg PO BID 07/03/16 [History] Timolol Maleate 0.25% 1 drop RIGHT EYE BID 07/03/16 [History] Ubidecarenone/Vitamin E [Co Q-10 50 mg Softgel] 1 tab PO DAILY 07/03/16 [History ] Insulin DETEMIR [Levemir] 30 units SQ DAILY 01/01/18 [History] Lisinopril 2.5 mg PO DAILY 01/01/18 [History] Aspirin Enteric Coated [Aspirin EC] 81 mg PO DAILY #30 tablet. 07/12/18 [Rx] Atorvastatin [Lipitor] 40 mg PO HS #30 tablet 01/10/18 [Rx] Furosemide [Lasix] 40 mg PO DAILY #30 tablet 01/10/18 [Rx] Sodium Bicarbonate 650 mg PO BID #30 tablet 01/10/18 [Rx] Allergies/Adverse Reactions: 3 Allergy/AdvReac Type Severity Reaction Status Date / Time No Known Allergies Allergy Verified 01/01/18 15:34 Certification: Further, I certify that my clinical findings support that this patient is homebound (i.e. absences from home require considerable and taxing effort and are for medical reasons or nondenominational services or infrequently or short duration when for other reasons) because: Homebound Reason: Patient requires assistance of a person or device to safely leave home, Leaving home requires considerable and taxing effort due to condition Attestation: My signature below is to certify that this patient is under my care and that I, or nurse practitioner, or a physician's ophthalmic surgical assistant working with me, has a face-to -face encounter with this patient.
[2018-01-10 11:52] VITALS: BP 141/77
== END 2018-01-10 16:30 | disposition home health service (06) | DRG 280 ==
LOC: EMEROO 12:45 → 2ANU 12:45 → SUATTDRO 15:43 → 2ANU 17:24
PROVIDERS: ADMIT Internal Medicine; ATTEND Internal Medicine

== ENCOUNTER 2018-04-03 03:43 | Inpatient (IN) ==
[2018-04-03] MEDS ORDERED: Ondansetron 4 MG/2 ML VIAL IVP ONE ×2 (03:51→22:15)
[2018-04-03] MEDS ORDERED: 0.9 % Sodium Chloride 1,000 ML IVC ONE (03:53)
--- NOTE | 2018-04-03 03:57 | Emergency Department Note ---
Disposition Clinical Impression: Hypoglycemia Intractable nausea and vomiting Qualifiers: Vomiting type: unspecified Qualified Code(s): R11.2 - Nausea with vomiting, unspecified Diarrhea Qualifiers: Diarrhea type: unspecified type Qualified Code(s): R19.7 - Diarrhea, unspecified [id number] kidney injury Qualifiers: Acute renal failure type: unspecified Chronic kidney disease stage: unspecified stage Qualified Code(s): N17.9 - Acute kidney failure, unspecified Disposition: Admitted As Inpatient Condition: Undetermined Time of Disposition: 06:07 General Adult HPI - General Chief complaint: ED Nausea/Vomiting/Diarrhea Stated complaint: diarrhea/vomiting/swelling Time Seen by Provider: 04/03/18 03:50 Source: patient, EMS Mode of arrival: EMS Limitations: no limitations Nursing Notes Reviewed: Yes Vital Signs Reviewed: Yes - History of Present Illness HPI Narrative: 83-year-old female with history of diabetes insulin-dependent, arrives to the emergency department with multiple episodes of hypoglycemia. The patient states she has not been feeling well the past few days and had some associated nausea and diarrhea. The patient had EMS called out earlier today for an episode of hypoglycemia. She was in the 40s. She was given an amp of D50 but refused transfer to the hospital at that time. The patient states that she continued to not feel well. Patient had EMS called again for hypoglycemia. Upon arrival she was in the 40s and 50s. She was brought in for the evaluation in the emergency department. The patient denies any other complaints other than some associated mild nausea and diarrhea as well as some intermittent abdominal discomfort. The patient states that she has not used her insulin today but is continued to be hypoglycemic. Upon arrival to the emergency department her glucose was 55. She was given orange juice as well as kilograms. The patient was also worked up concern for possible sepsis. Pain Scale: 0 - Related Data Home Medications Medication Instructions Recorded Confirmed Clopidogrel [Plavix] 75 mg PO DAILY 07/03/16 01/01/18 Diltiazem HCl [Diltiazem ER] 120 mg PO DAILY 07/03/16 01/01/18 Gabapentin [Neurontin] 100 mg PO BID 07/03/16 01/01/18 Levothyroxine [Synthroid] 25 mcg PO 0630 07/03/16 01/01/18 Metoprolol [Lopressor] 50 mg PO BID 07/03/16 01/01/18 Timolol Maleate 0.25% 1 drop RIGHT EYE BID 07/03/16 01/01/18 Ubidecarenone/Vitamin E [Co Q-10 1 tab PO DAILY 07/03/16 01/01/18 50 mg Softgel] Insulin DETEMIR [Levemir] 30 units SQ DAILY 01/01/18 01/01/18 Lisinopril 2.5 mg PO DAILY 01/01/18 01/01/18 Previous Rx's Medication Instructions Recorded Aspirin Enteric Coated [Aspirin EC] 81 mg PO DAILY #30 tablet. 01/10/18 Atorvastatin [Lipitor] 40 mg PO HS #30 tablet 01/10/18 Furosemide [Lasix] 40 mg PO DAILY #30 tablet 01/10/18 Sodium Bicarbonate 650 mg PO BID #30 tablet 01/10/18 Allergies Allergy/AdvReac Type Severity Reaction Status Date / Time No Known Allergies Allergy Verified 01/01/18 15:34 All systems ED: reviewed and negative except as stated. Constitutional: Denies: fever, chills, weakness Cardiovascular: Denies: chest pain Respiratory: Denies: dyspnea Gastrointestinal: Reports: abdominal pain, nausea, vomiting, diarrhea. Denies: constipation, hematemesis, melena, hematochezia Genitourinary: Denies: urgency, dysuria Musculoskeletal: Denies: back pain, neck pain Past Medical History - Past Medical History Attestation: Yes The following information was validated with the patient. 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 - Social History Smoking Status: Former smoker Smokeless Tobacco Status: No Alcohol use: Reports: none Drug use: Reports: none Physical Exam - General Limitations: no limitations General appearance: alert, in no apparent distress - Head Head exam: atraumatic, normocephalic, normal inspection - Eye Eye exam: Present: normal appearance, PERRL, EOMI - ENT ENT exam: normal exam, normal oropharynx, mucous membranes moist - Neck Neck exam: Present: normal inspection, full ROM, trachea midline - Chest Chest inspection: Present: normal inspection, symmetric chest wall rise - Respiratory Respiratory exam: Present: normal lung sounds bilaterally - Cardiovascular Cardiovascular exam: Present: regular rate, normal rhythm, normal heart sounds - Abdominal Exam Abdominal exam: Present: soft, Non-Tender. Absent: tenderness, distention, guarding, rebound, rigidity, heel tap sign, pulsatile mass, hernia - Extremities Exam Extremities exam: Present: full ROM, pedal edema (trace to 1+). Absent: tenderness - Neurological Exam Neurological exam: Present: alert, oriented X3, CN II-XII intact - Skin Skin exam: Present: warm, dry, intact, normal color Course Vital Signs Temperature 98.1 F 04/03/18 03:48 Pulse Rate 72 04/03/18 03:48 Respiratory Rate 18 04/03/18 03:48 Blood Pressure 122/63 04/03/18 03:48 O2 Sat by Pulse Oximetry 99 04/03/18 03:48 Temperature 98.1 F 04/03/18 03:48 Pulse Rate 71 04/03/18 06:20 Respiratory Rate 13 04/03/18 04:59 Blood Pressure 112/66 04/03/18 06:20 O2 Sat by Pulse Oximetry 98 04/03/18 06:20 Oxygen Delivery Oxygen Delivery Room Air Medical Decision Making - MDM Narrative Medical decision making narrative: Patient's workup in the emergency department demonstrates concern for acute kidney injury. This appears acute on chronic has patient does have extensive history of chronic kidney disease. The patient's glucose continues to remain in the 50s despite our juice and take gram crackers. The patient was placed on a D10 drip at this time. She is getting every one hour glucoses. CT scan demonstrates no acute process. Patient's lactic acid was within normal limits. Urinalysis is currently pending at this time but the patient is unable to make urine. The patient's was within normal limits. No further questions or concerns noted at this time after the patient will be admitted to the hospital. Patient accepted by Dr. Montes De Oca. - Lab Data Lab results reviewed: Yes I reviewed the patient's lab results. Result diagrams: 04/03/18 04:05 04/03/18 04:05 Lab Results 04/03/18 04/03/18 04/03/18 Range/Units 04:05 04:05 04:05 WBC 10.8 (4.3-11.1) K/mcL RBC 3.23 L (3.82-4.97) M/mcL Hgb 9.2 L (11.5-15.4) g/dL Hct 29.6 L (35.3-44.9) % MCV 91.6 (83.0-100.0) fL MCH 28.5 (28.0-33.3) pg MCHC 31.1 L (31.6-35.5) g/dL RDW 15.9 H (11.5-14.5) % Plt Count 299 (140-400) K/mcL MPV 10.6 (9.4-12.4) fL Immature Gran % 0.4 (0-4) % Seg Neutrophils % 83.9 % Lymphocytes % 6.8 % Monocytes % 8.2 % Eosinophils % 0.6 % Basophils % 0.1 % Neutrophils # 9.1 H (1.6-8.9) K/mcL Lymphocytes # 0.7 (0.6-4.6) K/mcL Monocytes # 0.9 (0.0-1.3) K/mcL Eosinophils # 0.1 (0.0-0.6) K/mcL Basophils # 0.0 (0.0-0.2) K/mcL Sodium 137 (136-145) mEq/L Potassium 4.0 (3.5-5.1) mEq/L Chloride 95 L (98-107) mEq/L Carbon Dioxide 27 (23-29) mEq/L BUN 76 H (8-23) mg/dL Creatinine 3.90 H (0.60-1.20) mg/dL Est GFR ( Amer) 13 L (> 60) Est GFR (Non-Af Amer) 11 L (> 60) BUN/Creatinine Ratio 19 (6-26) Glucose 44 L (70-105) mg/dL Calculated Osmolality 304 H (280-300) Lactic Acid 1.0 (0.5-2.2) mmol/L Calcium 8.9 (8.6-10.3) mg/dL Total Bilirubin 0.7 (0.3-1.0) mg/dL Direct Bilirubin 0.2 (0.0-0.2) mg/dL Indirect Bilirubin 0.5 (0.0-1.2) mg/dL AST 15 (13-39) Units/L ALT 7 (7-52) Units/L Alkaline Phosphatase 84 (34-104) Units/L Serum Total Protein 6.8 (6.4-8.9) g/dL Albumin 3.4 L (3.5-5.7) g/dL Globulin 3.4 (2.4-3.5) g/dL Albumin/Globulin Ratio 1.0 L (1.1-2.2) Urine Color (Yellow) Urine Clarity (Clear) Urine pH (5.0-8.0) pH Units Ur Specific [place] (1.010-1.025) Urine Protein (Neg-Trace) mg/dL Urine Glucose (UA) (Normal) mg/dL Urine Ketones (Negative) mg/dL Urine Blood (Negative) Urine Nitrite (Negative) Urine Bilirubin (Negative) Urine Urobilinogen (Normal) mg/dL Ur Leukocyte Esterase (Negative) Urine Microscopic RBC (0-3) per hpf Urine Microscopic WBC (0-3) per hpf Ur Squamous Epith Cells (None-Few) per lpf Amorphous Sediment (Few) Urine Bacteria (None-Few) per hpf Hyaline Casts (None-Few) per lpf Urine Mucus (Few) Urine Yeast (None Seen) per hpf Ur Culture Indicated? (NO) 04/03/18 Range/Units 05:37 WBC (4.3-11.1) K/mcL RBC (3.82-4.97) M/mcL Hgb (11.5-15.4) g/dL Hct (35.3-44.9) % MCV (83.0-100.0) fL MCH (28.0-33.3) pg MCHC (31.6-35.5) g/dL RDW (11.5-14.5) % Plt Count (140-400) K/mcL MPV (9.4-12.4) fL Immature Gran % (0-4) % Seg Neutrophils % % Lymphocytes % % Monocytes % % Eosinophils % % Basophils % % Neutrophils # (1.6-8.9) K/mcL Lymphocytes # (0.6-4.6) K/mcL Monocytes # (0.0-1.3) K/mcL Eosinophils # (0.0-0.6) K/mcL Basophils # (0.0-0.2) K/mcL Sodium (136-145) mEq/L Potassium (3.5-5.1) mEq/L Chloride (98-107) mEq/L Carbon Dioxide (23-29) mEq/L BUN (8-23) mg/dL Creatinine (0.60-1.20) mg/dL Est GFR ( Amer) (> 60) Est GFR (Non-Af Amer) (> 60) BUN/Creatinine Ratio (6-26) Glucose (70-105) mg/dL Calculated Osmolality (280-300) Lactic Acid (0.5-2.2) mmol/L Calcium (8.6-10.3) mg/dL Total Bilirubin (0.3-1.0) mg/dL Direct Bilirubin (0.0-0.2) mg/dL Indirect Bilirubin (0.0-1.2) mg/dL AST (13-39) Units/L ALT (7-52) Units/L Alkaline Phosphatase (34-104) Units/L Serum Total Protein (6.4-8.9) g/dL Albumin (3.5-5.7) g/dL Globulin (2.4-3.5) g/dL Albumin/Globulin Ratio (1.1-2.2) Urine Color Yellow (Yellow) Urine Clarity Slightly Hazy (Clear) Urine pH 6.0 (5.0-8.0) pH Units Ur Specific [place] 1.015 (1.010-1.025) Urine Protein 30 H (Neg-Trace) mg/dL Urine Glucose (UA) Normal (Normal) mg/dL Urine Ketones Negative (Negative) mg/dL Urine Blood Trace-intact H (Negative) Urine Nitrite Negative (Negative) Urine Bilirubin Negative (Negative) Urine Urobilinogen Normal (Normal) mg/dL Ur Leukocyte Esterase Large H (Negative) Urine Microscopic RBC 0-3 (0-3) per hpf Urine Microscopic WBC TNTC H (0-3) per hpf Ur Squamous Epith Cells Many H (None-Few) per lpf Amorphous Sediment Moderate H (Few) Urine Bacteria Few (None-Few) per hpf Hyaline Casts Moderate H (None-Few) per lpf Urine Mucus Many H (Few) Urine Yeast Moderate H (None Seen) per hpf Ur Culture Indicated? NO. A (NO) - Radiology Data Radiology results reviewed: Yes I reviewed the patient's radiology results. Abdomen/Pelvis CT 04/03/18 03:51 IMPRESSION: Diverticulosis without scan evidence for diverticulitis or other acute process. D/ / Yannick Aguilar MD / Yannick Aguilar MD Interpreting Provider: Yannick Aguilar MD - EKG Data EKG #1 EKG attestation: Yes I reviewed and interpreted this EKG. EKG results narrative: Heart rate 74 beats for minute. Normal sinus rhythm. Left bundle branch block noted which was previous on EKG 01/05/18. No ST elevation or ST depression noted. No third-degree block despite what machine is reading. Attestation Statement - Attestation Attestation: I examined this patient and my medical decision-making was reviewed with the Resident Physician. I agree with the documented findings, disposition and treatment plan as described except to the extent set forth below. Findings consistent with hypoglycemia. This was the third episode of hypoglycemia. She is an insulin-dependent diabetic. I suspect underlying infection with possible increased metabolic demands and decreased excretion of insulin. She was started on D10 demand obtain glucose. She did not respond to oral glucose. She is alert, mentating properly. She does have evidence of acute kidney injury. We will start IV fluids. Patient be admitted for further management.
[2018-04-03 04:21] LABS: Basophils % 0.1 %; Eosinophils # 0.1 K/mcL (0.0-0.6); Eosinophils % 0.6 %; Hematocrit 29.6 % (35.3-44.9); Hemoglobin 9.2 g/dL (11.5-15.4); Immature Granulocytes % 0.4 % (0-4); Lymphocytes # 0.7 K/mcL (0.6-4.6); Lymphocytes % 6.8 %; Mean Corpuscular HGB Conc 31.1 g/dL (31.6-35.5); Mean Corpuscular Hemoglobin 28.5 pg (28.0-33.3); Mean Corpuscular Volume 91.6 fL (83.0-100.0); Mean Platelet Volume 10.6 fL (9.4-12.4); Monocytes # 0.9 K/mcL (0.0-1.3); Monocytes % 8.2 %; Neutrophils # 9.1 K/mcL (1.6-8.9); Platelet Count 299 K/mcL (140-400); Red Blood Count 3.23 M/mcL (3.82-4.97); Red Cell Distribution Width 15.9 % (11.5-14.5); Segmented Neutrophils % 83.9 %
[2018-04-03 04:39] LABS: Albumin 3.4 g/dL (3.5-5.7); Bilirubin,Direct 0.2 mg/dL (0.0-0.2); Bilirubin,Indirect 0.5 mg/dL (0.0-1.2); Bilirubin,Total 0.7 mg/dL (0.3-1.0); Calcium 8.9 mg/dL (8.6-10.3); Globulin 3.4 g/dL (2.4-3.5); Total Protein 6.8 g/dL (6.4-8.9)
[2018-04-03 05:55] LABS: Bilirubin,Urine Negative (Negative); Blood,Urine Trace-intact (Negative); Color,Urine Yellow (Yellow); Glucose,Urine (UA) Normal (Normal); Ketones,Urine Negative (Negative); Leukocyte Esterase,Urine Large (Negative); Nitrite,Urine Negative (Negative); Protein,Urine 30 mg/dL (Neg-Trace); Specific Gravity,Urine 1.015 (1.010-1.025); Urobilinogen,Urine Normal (Normal)
[2018-04-03 05:59] LABS: Bacteria,Urine Few per hpf (None-Few); Clarity,Urine Slightly Hazy (Clear); Squamous Epithelial Cell,Urine Many per lpf (None-Few); WBC,Urine TNTC per hpf (0-3)
[2018-04-03 06:12] LABS: RBC,Urine 0-3 per hpf (0-3)
[2018-04-03 06:13] LABS: Amorphous Sediment,Urine Moderate (Few); Hyaline Casts,Urine Moderate per lpf (None-Few); Mucus,Urine Many (Few); Yeast,Urine Moderate per hpf (None Seen)
[2018-04-03] MEDS ORDERED: D10% in Water 500 ML IVC SCH (06:30)
[2018-04-03] MEDS ORDERED: D5% in Water 1,000 ML IVC PRN (07:31)
[2018-04-03] MEDS ORDERED: *HR* Dextrose 50 % in Water (Syg) 50 ML SYRINGE IVP PRN (07:31)
[2018-04-03] MEDS ORDERED: Dextrose Gel 15 GM/37.5 ML TUBE PO PRN ×2 (07:31)
[2018-04-03] MEDS: D10% in 0.2 % NACL 250 ML IVC SCH (07:38)
[2018-04-03] MEDS ORDERED: Naloxone 0.4 MG/ML INJ IVP PRN ×2 (07:44→07:51)
--- NOTE | 2018-04-03 09:04 | Internal Med History&Physical ---
Date of Encounter: 04/03/18 Time of Encounter: 08:30 Internal Medicine - H&P: HPI Chief complaint: Diarrhea, low blood sugars Admitted From: Emergency Dept Plans for Post Hospital Care: Home History of present illness: Ms. Pickett is a 83 year old female patient with a history of type 2 diabetes mellitus, chronic kidney disease stage IV, hypertension who presented to the ER with complaints of low blood sugars since last night. Patient takes Levemir insulin once a day and she usually takes it at 8:30 PM. However last evening she checked her blood sugars and as there were no she did not take her Levemir. Patient has been having diarrhea since last night and she has been feeling sick for the past couple of days. She denies any nausea or vomiting. No abdominal pain. Her last dose of insulin was the day before yesterday when she took her Levemir at night. She says she has had poor appetite and has not been eating much. She denies any fevers or chills. Patient lives alone and has son and daughter check on her frequently during the day. Past Med Surg Social Fam HX - Past Medical History Attestation: Yes The following information was validated with the patient. Medical history: cancer, coronary artery disease, diabetes, hypertension, myocardial infarction, renal disease Additional medical history: Gout Psychiatric history: no psych history - Past Surgical History Surgical History: cancer surgery, coronary bypass (CABG) - Social History Smoking Status: Former smoker Smokeless Tobacco Status: No Alcohol use: none Drug use: none Internal Medicine - H&P: Meds Clopidogrel [Plavix] 75 mg PO DAILY 07/03/16 [History] Diltiazem HCl [Diltiazem ER] 120 mg PO DAILY 07/03/16 [History] Gabapentin [Neurontin] 100 mg PO BID 07/03/16 [History] Levothyroxine [Synthroid] 25 mcg PO 0630 07/03/16 [History] Metoprolol [Lopressor] 50 mg PO BID 07/03/16 [History] Timolol Maleate 0.25% 1 drop RIGHT EYE BID 07/03/16 [History] Ubidecarenone/Vitamin E [Co Q-10 50 mg Softgel] 1 tab PO DAILY 07/03/16 [History ] Insulin DETEMIR [Levemir] 40 units SQ DAILY 01/01/18 [History] Lisinopril 2.5 mg PO DAILY 01/01/18 [History] Aspirin Enteric Coated [Aspirin EC] 81 mg PO DAILY #30 tablet. 01/10/18 [Rx] Atorvastatin [Lipitor] 40 mg PO HS #30 tablet 01/10/18 [Rx] Furosemide [Lasix] 40 mg PO DAILY #30 tablet 01/10/18 [Rx] Sodium Bicarbonate 650 mg PO BID #30 tablet 01/10/18 [Rx] 3 Allergy/AdvReac Type Severity Reaction Status Date / Time No Known Allergies Allergy Verified 01/01/18 15:34 All Systems PM: A 10-system review of systems was performed and is negative for pertinent findings except as documented above in the HPI. - Constitutional Constitutional: malaise, no chills, no fever(s), no night sweats - EENT Eyes: no change in vision, no discharge, no pain, no photophobia Ears: no ear discharge, no ear pain, no tinnitus Nose, mouth and throat: no dysphagia, no nasal discharge, no neck pain, no sore throat - Cardiovascular Cardiovascular ROS IM: no chest pain, no diaphoresis, no dyspnea, no lightheadedness, no palpitations, no syncope - Respiratory Respiratory: no cough, no dyspnea, no wheezing, no excessive phlegm production - Gastrointestinal Gastrointestinal: diarrhea, no abdominal pain, no hematemesis, no hematochezia, no melena, no nausea, no vomiting - Genitourinary Genitourinary: no change in urinary stream, no dysuria, no flank pain, no hematuria - Musculoskeletal Musculoskeletal ROS IM: no numbness, no tingling - Integumentary Integumentary IM: no rash, no unusual bruising - Neurological Neurological ROS: no confusion, no convulsions, no focal weakness, no numbness, no tingling, no tremor(s) - Hematologic/Lymphatic Hematologic/Lymphatic: no easy bruising - Constitutional Vitals: Temp Pulse Resp BP Pulse Ox 98 F 83 18 101/46 91 04/03/18 07:50 04/03/18 07:50 04/03/18 07:50 04/03/18 07:50 04/03/18 08:01 General appearance: Present: cooperative, mild distress, A&O X 3, pleasant, answers questions appropriately Exam: . - Respiratory Respiratory exam: Present: CTAB. Absent: accessory muscle use, rales, rhonchi, wheezes - Cardiovascular Cardiovascular exam: Present: RRR, +S1, +S2. Absent: diastolic murmur, gallop, rubs, systolic murmur - GI/Abdominal GI/Abdominal exam: Present: normal bowel sounds, soft, no peritoneal signs. Absent: distended, tenderness - Extremities Exam Extremities exam: Present: warm, radial pulses palpable and symmetrical. Absent : calf tenderness, cyanotic, pedal edema - Neurological Exam Neurological exam: Present: alert, CN II-XII intact, oriented X3, no focal deficits. Absent: facial droop, speech deficit Internal Med - H&P Results - Labs CBC & Chem 7: 04/03/18 04:05 04/03/18 08:14 Labs: BMP 04/03/18 08:14 Glucose 199 H - Impressions Impressions Abdomen/Pelvis CT 04/03/18 03:51 IMPRESSION: Diverticulosis without scan evidence for diverticulitis or other acute process. D/ / Yannick Aguilar MD / Yannick Aguilar MD Interpreting Provider: Yannick Aguilar MD - Assessment and plan (1) Hypoglycemia Current Visit: Yes Status: Acute Assessment and plan: Patient presenting to the ER with hypoglycemia. In the ER her blood sugars remained low and so she was started on D10 drip. Since then her sugars have improved. We will continue to monitor blood sugars every hour. Hold D10 drip for now and monitor blood sugars. If sugars trend downwards, will resume dextrose infusion. Moderate risk for complications. (2) Essential hypertension Current Visit: Yes Status: Chronic Assessment and plan: Resume home medications. Monitor blood pressure (3) Diarrhea Current Visit: Yes Status: Acute Assessment and plan: Patient has not had any further episodes since coming to the ER. We will monitor. Most likely functional versus gastroenteritis. If no further episodes , no further workup needed. Qualifiers: Diarrhea type: unspecified type Qualified Code(s): R19.7 - Diarrhea, unspecified (4) CKD (chronic kidney disease) stage 4, GFR 15-29 ml/min Current Visit: Yes Status: Chronic Assessment and plan: Patient has chronic kidney disease stage IV. Her creatinine is 3.9 today. Above her baseline but she is had such high creatinine in the past. Will monitor closely. Gentle hydration. (5) Diabetes mellitus Current Visit: Yes Status: Chronic Assessment and plan: With episode of hypoglycemia. Hold insulin products for now while we monitor blood sugars closely. As her blood sugars improve, may place her back on sliding scale insulin. Qualifiers: Diabetes mellitus type: type 2 Diabetes mellitus penitentiary insulin use: without auto inspection specialist use Diabetes mellitus complication status: with hypoglycemia Diabetes mellitus complication detail: without coma Qualified Code(s): E11.649 - Type 2 diabetes mellitus with hypoglycemia without coma (6) Anemia Current Visit: Yes Status: Chronic Assessment and plan: Anemia due to chronic kidney disease. Appears to be at baseline. Qualifiers: Anemia type: due to chronic kidney disease Chronic kidney disease stage: stage 4 (severe) Qualified Code(s): N18.4 - Chronic kidney disease, stage 4 ( severe); D63.1 - Anemia in chronic kidney disease - Time Spent With Patient Total time spent is greater than 50% in coordination of care (as documented) at patient's floor/unit and/or counseling patient:
[2018-04-03] MEDS ORDERED: Ringers Solution, Lactated 1,000 ML IVC SCH (09:15)
[2018-04-03] MEDS: Diltiazem CD (24hr) 120 MG CAPSULE PO SCH (09:50)
[2018-04-03] MEDS: Insulin LISPRO 300 UNITS/3 ML VIAL SQ SCH ×3 (11:33→21:09)
--- NOTE | 2018-04-03 16:47 | Event Note ---
Date of Encounter: 04/03/18 Time of Encounter: 16:46 All the patient's bedside as patient was becoming hypoxic on room air along with bradycardia and decreased responsiveness. By the time I came to the patient's bedside, oxygen was placed and patient was already improving. Heart rate improved to 93 and oxygen sats also improved to greater than 90%. Patient was more responsive. Will obtain EKG and chest x-ray. Stop IV fluids. Patient may have underlying sleep apnea. We will keep her O2 supplementation while she is lying down.
[2018-04-03] MEDS: *HR* Heparin 5,000 UNIT/ML VIAL SQ SCH (17:17)
[2018-04-03] MEDS: Gabapentin 100 MG CAPSULE PO SCH (21:05)
[2018-04-03] MEDS ORDERED: 0.9 % Sodium Chloride 250 ML IVC ONE (22:35)
[2018-04-04] MEDS: Levothyroxine 25 MCG TABLET PO SCH (06:02)
[2018-04-04] MEDS: *HR* Heparin 5,000 UNIT/ML VIAL SQ SCH ×2 (06:02→17:32)
[2018-04-04] MEDS: Insulin LISPRO 300 UNITS/3 ML VIAL SQ SCH ×4 (10:43→20:29)
[2018-04-04] MEDS: Diltiazem CD (24hr) 120 MG CAPSULE PO SCH (11:09)
[2018-04-04] MEDS: Aspirin Enteric Coated 81 MG Tablet PO SCH (11:09)
[2018-04-04] MEDS: Gabapentin 100 MG CAPSULE PO SCH ×2 (11:09→20:29)
--- NOTE | 2018-04-04 13:01 | Electrocardiograph Report ---
[address] [place], [place] [address] Test Date: 2018-04-03 Pat Name: Isabela Pickett Department: EXAM4 Room: 2A37 Gender: F Valve Lapper: : 1935 Requested By: Jose M Cisse Order Number: [id number] Reading MD: Nelda Rice Measurements Intervals [place] Rate: 74 P: 51 SD: QRS: -56 QRSD: 128 T: 116 QT: 381 QTc: 423 Interpretive Statements Sinuys rhythm Nonspecific intraventricular conduction delay Left axis deviation LVH with secondary repolarization abnormality Electronically Signed On 04-04-2018 12:59:28 EDT by Nelda Rice
--- NOTE | 2018-04-04 14:38 | Electrocardiograph Report ---
[address] [place] [address] Test Date: 2018-04-03 Pat Name: Isabela Pickett Department: 109 Room: 2A37 Gender: F Clinical Informatics Strategist: : 1935 Requested By: Maria C Schulz Order Number: [id number] Reading MD: Nelda Rice Measurements Intervals [place] Rate: 94 P: 94 DC: 196 QRS: -47 QRSD: 130 T: 139 QT: 345 QTc: 397 Interpretive Statements SINUS RHYTHM MARKED LEFT AXIS DEVIATION MODERATE INTRAVENTRICULAR CONDUCTION DELAY ST DEVIATION AND MODERATE T-WAVE ABNORMALITY, CONSIDER LATERAL ISCHEMIA Electronically Signed On 04-04-2018 14:37:25 EDT by Nelda Rice
[2018-04-04] MEDS ORDERED: *HR* HYDROcodone/Acet 5/325 mg TABLET PO PRN (16:09)
--- NOTE | 2018-04-04 18:09 | Internal Med Progress Note ---
Hospitalist Progress Note - Encounter Date of Encounter: 04/04/18 Time of Encounter: 18:05 - Subjective Interval History: Pt denied fever, chills, N/V. She did report having diarrhea. She denies chest pain or SOB. I talked to the daughter at great length regarding pt's current medical status and medical plan and family is agreeable. Grandson and his fiance where also present. Pt states her legs are hurting. She reports hx of neuropathy and states she is to on medication for it but she does have gabapentin on home med list. She also reports that she had not been eating like she should but had been taking the same dose of insulin. - Exam Vitals: Temp Pulse Resp BP Pulse Ox 98.5 F 92 18 94/54 92 04/04/18 16:36 04/04/18 16:36 04/04/18 16:36 04/04/18 16:36 04/04/18 16:36 Exam: General appearance: Present: cooperative, mild distress, A&O X 3, pleasant, answers questions appropriately Exam: - Respiratory Respiratory exam: Present: CTAB. Absent: accessory muscle use, rales, rhonchi, wheezes - Cardiovascular Cardiovascular exam: Present: RRR, +S1, +S2. Absent: diastolic murmur, gallop, rubs, systolic murmur - GI/Abdominal GI/Abdominal exam: Present: normal bowel sounds, soft, no peritoneal signs. Absent: distended, tenderness - Extremities Exam Extremities exam: Present: warm, radial pulses palpable and symmetrical. Absent : calf tenderness, cyanotic, pedal edema. Pt complaining of LE pain ad tingling. - Neurological Exam Neurological exam: Present: alert, CN II-XII intact, oriented X3, no focal deficits. Absent: facial droop, speech deficit - Assessment and Plan (1) Hypoglycemia Current Visit: Yes Status: Acute Assessment and Plan: Levemir on hold for now due to hyperglycemia. On SSI prn (2) CKD (chronic kidney disease) stage 4, GFR 15-29 ml/min Current Visit: Yes Status: Chronic Assessment and Plan: Patient has chronic kidney disease stage IV. Her creatinine is 3.9 today. Will monitor renal panel. Given gentle hydration prn. (3) Diabetes mellitus Current Visit: Yes Status: Chronic (4) Diarrhea Current Visit: Yes Status: Acute Assessment and Plan: Probably due to gastroenteritis vs functional. pt still having diarrhea so will check GI panel (5) Essential hypertension Current Visit: Yes Status: Chronic Assessment and Plan: Diltiazem and Metoprolol (6) Anemia Current Visit: Yes Status: Chronic - Summary of Assessment and Plan Summary of Assessment and Plan: Ms. Pickett is a 83 year old female patient with a history of type 2 diabetes mellitus, chronic kidney disease stage IV, hypertension who presented to the ER with complaints of low blood sugars since last night. Patient takes Levemir insulin once a day and she usually takes it at 8:30 PM. However last evening she checked her blood sugars and as there were no she did not take her Levemir. Patient has been having diarrhea since last night and she has been feeling sick for the past couple of days. She denies any nausea or vomiting. No abdominal pain. Her last dose of insulin was the day before yesterday when she took her Levemir at night. She says she has had poor appetite and has not been eating much. She denies any fevers or chills. Patient lives alone and has son and daughter check on her frequently during the day. - Time Spent with Patient Total time spent is greater than 50% in coordination of care (as documented) at patient's floor/unit and/or counseling patient: less than 15 minutes Plan of Care Discussed with: patient Internal Medicine: Result - Labs CBC & Chem 7: 04/03/18 04:05 04/03/18 08:14 Consult Discharge Plan - Plan Referrals: Casi Smalls, FIRE PROTECTION FABRICATOR [Primary Care Provider] - (3) Diabetes mellitus Qualifiers: Diabetes mellitus type: type 2 Diabetes mellitus watermelon inspector insulin use: without shelter use Diabetes mellitus complication status: with hypoglycemia Diabetes mellitus complication detail: without coma Qualified Code(s): E11.649 - Type 2 diabetes mellitus with hypoglycemia without coma (4) Diarrhea Qualifiers: Diarrhea type: unspecified type Qualified Code(s): R19.7 - Diarrhea, unspecified (6) Anemia Qualifiers: Anemia type: due to chronic kidney disease Chronic kidney disease stage: stage 4 (severe) Qualified Code(s): N18.4 - Chronic kidney disease, stage 4 ( severe); D63.1 - Anemia in chronic kidney disease
[2018-04-04 18:45] LABS: Basophils % 0.1 %; Eosinophils % 0.1 %; Hematocrit 27.3 % (35.3-44.9); Hemoglobin 8.6 g/dL (11.5-15.4); Immature Granulocytes % 0.3 % (0-4); Lymphocytes # 0.6 K/mcL (0.6-4.6); Lymphocytes % 5.5 %; Mean Corpuscular HGB Conc 31.5 g/dL (31.6-35.5); Mean Corpuscular Hemoglobin 28.8 pg (28.0-33.3); Mean Corpuscular Volume 91.3 fL (83.0-100.0); Mean Platelet Volume 10.9 fL (9.4-12.4); Monocytes % 9.4 %; Neutrophils # 8.7 K/mcL (1.6-8.9); Platelet Count 299 K/mcL (140-400); Red Blood Count 2.99 M/mcL (3.82-4.97); Red Cell Distribution Width 15.7 % (11.5-14.5); Segmented Neutrophils % 84.6 %
[2018-04-04 19:04] LABS: Calcium 8.4 mg/dL (8.6-10.3); Potassium 4.9 mEq/L (3.5-5.1)
[2018-04-05] MEDS: *HR* Heparin 5,000 UNIT/ML VIAL SQ SCH ×2 (05:47→17:21)
[2018-04-05] MEDS: Levothyroxine 25 MCG TABLET PO SCH (05:47)
[2018-04-05 07:07] LABS: Basophils % 0.1 %; Eosinophils % 0.1 %; Hematocrit 25.9 % (35.3-44.9); Hemoglobin 8.2 g/dL (11.5-15.4); Immature Granulocytes % 0.4 % (0-4); Lymphocytes # 0.7 K/mcL (0.6-4.6); Lymphocytes % 6.9 %; Mean Corpuscular HGB Conc 31.7 g/dL (31.6-35.5); Mean Corpuscular Hemoglobin 29.1 pg (28.0-33.3); Mean Corpuscular Volume 91.8 fL (83.0-100.0); Mean Platelet Volume 11.4 fL (9.4-12.4); Monocytes # 1.3 K/mcL (0.0-1.3); Monocytes % 13.5 %; Neutrophils # 7.8 K/mcL (1.6-8.9); Platelet Count 299 K/mcL (140-400); Red Blood Count 2.82 M/mcL (3.82-4.97); Red Cell Distribution Width 15.5 % (11.5-14.5)
[2018-04-05 07:15] LABS: Albumin 2.7 g/dL (3.5-5.7); Calcium 8.4 mg/dL (8.6-10.3)
[2018-04-05] MEDS: Gabapentin 100 MG CAPSULE PO SCH ×2 (10:28→21:31)
[2018-04-05] MEDS: Aspirin Enteric Coated 81 MG Tablet PO SCH (10:28)
[2018-04-05] MEDS: Insulin LISPRO 300 UNITS/3 ML VIAL SQ SCH ×4 (10:33→21:30)
[2018-04-05] MEDS: Diltiazem CD (24hr) 120 MG CAPSULE PO SCH (10:34)
--- NOTE | 2018-04-05 18:12 | Internal Med Progress Note ---
Hospitalist Progress Note - Encounter Date of Encounter: 04/05/18 Time of Encounter: 18:10 - Subjective Interval History: Pt denied fever, chills, N/V. She did report having diarrhea. She denies chest pain or SOB. I talked to the daughter at great length regarding pt's current medical status and medical plan and family is agreeable. Grandson and his fiance where also present. Pt states her legs are hurting. She reports hx of neuropathy and states she is not on medication for it but she does have gabapentin on home med list. She also reports that she had not been eating like she should but had been taking the same dose of insulin. - Exam Vitals: Temp Pulse Resp BP Pulse Ox 98.2 F 70 16 76/43 93 04/05/18 15:08 04/05/18 15:08 04/05/18 15:08 04/05/18 15:08 04/05/18 15:08 Exam: General appearance: Present: cooperative, mild distress, A&O X 3, pleasant, answers questions appropriately Exam: - Respiratory Respiratory exam: Present: CTAB. Absent: accessory muscle use, rales, rhonchi, wheezes - Cardiovascular Cardiovascular exam: Present: RRR, +S1, +S2. Absent: diastolic murmur, gallop, rubs, systolic murmur - GI/Abdominal GI/Abdominal exam: Present: normal bowel sounds, soft, no peritoneal signs. Absent: distended, tenderness - Extremities Exam Extremities exam: Present: warm, radial pulses palpable and symmetrical. Absent : calf tenderness, cyanotic, pedal edema. Pt complaining of LE pain ad tingling. - Neurological Exam Neurological exam: Present: alert, CN II-XII intact, oriented X3, no focal deficits. Absent: facial droop, speech deficit - Assessment and Plan (1) CKD (chronic kidney disease) stage 4, GFR 15-29 ml/min Current Visit: Yes Status: Chronic Assessment and Plan: Patient has chronic kidney disease stage IV. Her creatinine bumped to 4.86. Consult nephrology to see. (2) Diabetes mellitus Current Visit: Yes Status: Chronic Assessment and Plan: With episode of hypoglycemia. Hold insulin products for now while we monitor blood sugars closely. As her blood sugars improve, may place her back on sliding scale insulin. (3) Hypoglycemia Current Visit: Yes Status: Acute Assessment and Plan: Levemir on hold for now due to hyperglycemia. On SSI prn (4) Diarrhea Current Visit: Yes Status: Acute Assessment and Plan: Probably due to gastroenteritis vs functional. pt still having diarrhea so will check GI panel (5) Essential hypertension Current Visit: Yes Status: Chronic Assessment and Plan: Diltiazem and Metoprolol (6) Anemia Current Visit: Yes Status: Chronic Assessment and Plan: Anemia due to chronic kidney disease. Consulting nephrology due to jump inCr. DVT Prophylaxis: Heparin - Time Spent with Patient Total time spent is greater than 50% in coordination of care (as documented) at patient's floor/unit and/or counseling patient: less than 15 minutes Internal Medicine: Result - Labs CBC & Chem 7: 04/05/18 05:53 04/05/18 05:53 Labs: Short CBC 04/04/18 04/05/18 Range/Units 18:25 05:53 WBC 10.3 9.9 (4.3-11.1) K/mcL Hgb 8.6 L 8.2 L (11.5-15.4) g/dL Hct 27.3 L 25.9 L (35.3-44.9) % Plt Count 299 299 (140-400) K/mcL Neutrophils # 8.7 7.8 (1.6-8.9) K/mcL BMP 04/04/18 04/05/18 18:30 05:53 Sodium 135 L 134 L Potassium 4.9 5.0 Chloride 97 L 95 L Carbon Dioxide 22 L 19 L BUN 88 H 94 H Creatinine 3.95 H 4.86 H Glucose 103 146 H Calcium 8.4 L 8.4 L Liver Function 04/05/18 Range/Units 05:53 Albumin 2.7 L (3.5-5.7) g/dL Consult Discharge Plan - Plan Referrals: aCsi Smalls, PARKING MANAGER [Primary Care Provider] - (2) Diabetes mellitus Qualifiers: Diabetes mellitus type: type 2 Diabetes mellitus regional intermodal truck driver insulin use: without regional intermodal truck driver use Diabetes mellitus complication status: with hypoglycemia Diabetes mellitus complication detail: without coma Qualified Code(s): E11.649 - Type 2 diabetes mellitus with hypoglycemia without coma (4) Diarrhea Qualifiers: Diarrhea type: unspecified type Qualified Code(s): R19.7 - Diarrhea, unspecified (6) Anemia Qualifiers: Anemia type: due to chronic kidney disease Chronic kidney disease stage: stage 4 (severe) Qualified Code(s): N18.4 - Chronic kidney disease, stage 4 ( severe); D63.1 - Anemia in chronic kidney disease
[2018-04-06] MEDS: Levothyroxine 25 MCG TABLET PO SCH (05:39)
[2018-04-06] MEDS: *HR* Heparin 5,000 UNIT/ML VIAL SQ SCH (05:40)
[2018-04-06 05:43] LABS: Basophils % 0.2 %; Eosinophils % 0.7 %; Hemoglobin 8.3 g/dL (11.5-15.4); Immature Granulocytes % 0.5 % (0-4); Lymphocytes # 0.6 K/mcL (0.6-4.6); Lymphocytes % 13.3 %; Mean Corpuscular HGB Conc 31.9 g/dL (31.6-35.5); Mean Corpuscular Hemoglobin 28.7 pg (28.0-33.3); Mean Platelet Volume 10.8 fL (9.4-12.4); Monocytes # 0.8 K/mcL (0.0-1.3); Monocytes % 19.2 %; Neutrophils # 2.8 K/mcL (1.6-8.9); Platelet Count 282 K/mcL (140-400); Red Blood Count 2.89 M/mcL (3.82-4.97); Red Cell Distribution Width 15.7 % (11.5-14.5); Segmented Neutrophils % 66.1 %
[2018-04-06 06:12] LABS: Albumin 2.5 g/dL (3.5-5.7); Calcium 8.3 mg/dL (8.6-10.3); Phosphorous 7.5 mg/dL (2.7-4.5); Potassium 4.7 mEq/L (3.5-5.1)
[2018-04-06 06:26] LABS: Platelet Estimate Normal (Normal)
[2018-04-06] MEDS: Diltiazem CD (24hr) 120 MG CAPSULE PO SCH (07:50)
[2018-04-06] MEDS: Gabapentin 100 MG CAPSULE PO SCH ×2 (07:50→20:29)
[2018-04-06] MEDS: Aspirin Enteric Coated 81 MG Tablet PO SCH (07:50)
[2018-04-06] MEDS: Insulin LISPRO 300 UNITS/3 ML VIAL SQ SCH ×4 (07:51→20:30)
--- NOTE | 2018-04-06 10:42 | Internal Med Progress Note ---
Hospitalist Progress Note - Encounter Date of Encounter: 04/06/18 Time of Encounter: 10:39 - Subjective Interval History: Patient seen and evaluated at bedside. Mildly lethargic, denies chest pain, nausea or abdominal pain. But reported having several loose BM yesterday and today. - Exam Vitals: Temp Pulse Resp BP Pulse Ox 97.9 F 82 18 92/43 94 04/06/18 07:15 04/06/18 07:15 04/06/18 07:15 04/06/18 07:15 04/06/18 07:15 Exam: General: Alert and oriented to person, not time or place. No acute distress, mildly lethargic. Skin: dry oral mucosa HEENT:EOM, pupils equal, round and reactive. Cardiovascular: RRR, Normal S1 & S2, no rubs, murmurs or gallops. JVD about 5cms. Lungs: Clear to auscultation b/l, no wheezes, rales or crackles. Abdomen: Soft, non-tender, no rigidity. Extremities: no edema, mild tenderness in the right foot. Neurological: mildly lethargic. Rest of the physical exam is non contributory - Assessment and Plan (1) UTI (urinary tract infection) Current Visit: Yes Status: Acute Assessment and Plan: Urine culture growing gram negative roods. pending sensitivity and specificity. Will start patient empiric antibiotics coverage, due to patient lethargy plus recent episodes of hypoglycemia. Blood cultures: no growth, pending final report. (2) CKD (chronic kidney disease) stage 4, GFR 15-29 ml/min Current Visit: Yes Status: Chronic Assessment and Plan: BUN of 104, patient mild lethargy, possible uremia. Worsening kidney function, possible due to low pre-load as patient has been having diarrhea. WIll start patient on gentle IV hydration, with NS@75 for at least 24 hours, will monitor closely to avoid volume overload. Nephrology has been consulted will follow recommendations. (3) Diabetes mellitus Current Visit: Yes Status: Chronic Assessment and Plan: Blood sugar well controlled. Continue lispro sliding scale before meals. We will add Levemir low-dose. (4) Diarrhea Current Visit: Yes Status: Acute Assessment and Plan: Unclear etiology. Abd/Pelvic CT done: Diverticulosis without scan evidence for diverticulitis or other acute process. GI panel sent pending report. If Diarrhea does not improve will consider GI consult. Started on gentle IV hydration. (5) Essential hypertension Current Visit: Yes Status: Chronic Assessment and Plan: BP in the low 100s possible due to dehydration in the setting of GI lost due to diarrhea. Hold antihypertensive medications. Started on IV fluids. (6) Anemia Current Visit: Yes Status: Chronic Assessment and Plan: H&H stable. No signs of active bleeding. Will continue to monitor. Consider transfusing if Hb <7, Hct <23 or patient hemodynamically unstable. (7) Urinary retention Current Visit: No Status: Chronic Assessment and Plan: Plan as above. (8) Dehydration Current Visit: Yes Status: Acute Assessment and Plan: Possible due to GI lost as patient has been having diarrhea. Started on gentle IV hydration. DVT Prophylaxis: On Heparin 5000 units SubQ BID. - Summary of Assessment and Plan Summary of Assessment and Plan: Patient to remain in the hospital due to dehydration, worsening kidney function and UTI, urine culture growing gram negative rods, pending sensitivity and specificity. - Time Spent with Patient Total time spent is greater than 50% in coordination of care (as documented) at patient's floor/unit and/or counseling patient: 25 - 35 minutes Plan of Care Discussed with: patient (the nurse.) Internal Medicine: Result - Labs CBC & Chem 7: 04/06/18 15:13 04/06/18 15:14 Labs: Short CBC 04/06/18 Range/Units 05:15 WBC 4.3 D (4.3-11.1) K/mcL Hgb 8.3 L (11.5-15.4) g/dL Hct 26.0 L (35.3-44.9) % Plt Count 282 (140-400) K/mcL Neutrophils # 2.8 (1.6-8.9) K/mcL BMP 04/06/18 05:15 Sodium 133 L Potassium 4.7 Chloride 96 L Carbon Dioxide 24 BUN 106 H Creatinine 5.61 H Glucose 174 H Calcium 8.3 L Liver Function 04/06/18 Range/Units 05:15 Albumin 2.5 L (3.5-5.7) g/dL Consult Discharge Plan - Plan Referrals: Casi Smalls, OLAP DEVELOPER [Primary Care Provider] - (1) UTI (urinary tract infection) Qualifiers: Urinary tract infection type: catheter-associated UTI Indwelling urinary catheter type: indwelling urethral catheter Encounter type: initial encounter Qualified Code(s): T83.511A - Infection and inflammatory reaction due to indwelling urethral catheter, initial encounter; N39.0 - Urinary tract infection , site not specified (3) Diabetes mellitus Qualifiers: Diabetes mellitus type: type 2 Diabetes mellitus watermaster insulin use: without fci use Diabetes mellitus complication status: with hypoglycemia Diabetes mellitus complication detail: without coma Qualified Code(s): E11.649 - Type 2 diabetes mellitus with hypoglycemia without coma (4) Diarrhea Qualifiers: Diarrhea type: unspecified type Qualified Code(s): R19.7 - Diarrhea, unspecified (6) Anemia Qualifiers: Anemia type: due to chronic kidney disease Chronic kidney disease stage: stage 4 (severe) Qualified Code(s): N18.4 - Chronic kidney disease, stage 4 ( severe); D63.1 - Anemia in chronic kidney disease
--- NOTE | 2018-04-06 10:45 | Nephrology Consult Note ---
Date of Encounter: 04/06/18 Time of Encounter: 10:30 Assessment and Plan (1) UTI (urinary tract infection) Current Visit: Yes Status: Acute Elevated SCr in the setting of decreased po intake, diarrhea, suspect pre-renal state Agree with IVF started today Will hold lisinopril Will obtain urine studies Will check CPK and uric acid levels Will discuss goal of care if no improvement with patient and family Qualifiers: Urinary tract infection type: catheter-associated UTI Indwelling urinary catheter type: indwelling urethral catheter Encounter type: initial encounter Qualified Code(s): T83.511A - Infection and inflammatory reaction due to indwelling urethral catheter, initial encounter; N39.0 - Urinary tract infection , site not specified (2) CKD (chronic kidney disease) stage 4, GFR 15-29 ml/min Current Visit: Yes Status: Chronic Baseline GFR up to 20s (3) Diarrhea Current Visit: Yes Status: Acute Per primary team Qualifiers: Diarrhea type: infectious Qualified Code(s): A09 - Infectious gastroenteritis and colitis, unspecified History of Present Illness - Reason for Consult Consult date: 04/06/18 Acute Kidney Injury, Chronic Kidney Disease Requesting physician: Ngoc Page - History of Present Illness 83 y o female with PMH of DM, HTN, CAD and stage [address] Blanchard admitted 04/03 with hypoglycemia. Pt also had been having diarrhea prior to presentation and per nurse, still having today. SCr was noted at 3.95, GFR 11 on admission worsening to 4.86, GFR 9 yesterday and now 5.61, GFR 7 today. UOP documented at 325cc in the past 24hrs. Of note, pt reports decreased po intake. At baseline, Pt appears to have stage 4 CKD with best numbers noted at 1.92, GFR 25 in december after GABY episode. Pt seems to answers appropriately but gets periodically disoriented and confused Past Med Surg Social Fam HX - Past Medical History Medical history: cancer, coronary artery disease, diabetes, hypertension, myocardial infarction, renal disease Additional medical history: Gout Psychiatric history: no psych history - Past Surgical History Surgical History: cancer surgery, coronary bypass (CABG) - Social History Smoking Status: Former smoker Smokeless Tobacco Status: No Alcohol use: none Drug use: none Medications and Allergies Clopidogrel [Plavix] 75 mg PO DAILY 07/03/16 [History] Diltiazem HCl [Diltiazem ER] 120 mg PO DAILY 07/03/16 [History] Gabapentin [Neurontin] 100 mg PO BID 07/03/16 [History] Levothyroxine [Synthroid] 25 mcg PO 0630 07/03/16 [History] Metoprolol [Lopressor] 50 mg PO BID 07/03/16 [History] Timolol Maleate 0.25% 1 drop RIGHT EYE BID 07/03/16 [History] Ubidecarenone/Vitamin E [Co Q-10 50 mg Softgel] 1 tab PO DAILY 07/03/16 [History ] Insulin DETEMIR [Levemir] 40 units SQ DAILY 01/01/18 [History] Lisinopril 2.5 mg PO DAILY 01/01/18 [History] Aspirin Enteric Coated [Aspirin EC] 81 mg PO DAILY #30 tablet. 01/10/18 [Rx] Atorvastatin [Lipitor] 40 mg PO HS #30 tablet 01/10/18 [Rx] Furosemide [Lasix] 40 mg PO DAILY #30 tablet 01/10/18 [Rx] Sodium Bicarbonate 650 mg PO BID #30 tablet 01/10/18 [Rx] 3 Allergy/AdvReac Type Severity Reaction Status Date / Time No Known Allergies Allergy Verified 01/01/18 15:34 Review of Systems All Systems review (narrative): The rest of the systems were negative Constitutional: anorexia (admits), weakness (admits) Cardiovascular: chest pain (denies) Respiratory: dyspnea (denies) Gastrointestinal: diarrhea (admits) Exam - Vital Signs Vital signs: Initial Vital Signs Temp Pulse Resp BP Pulse Ox 98.1 F 72 18 122/63 99 04/03/18 03:48 04/03/18 03:48 04/03/18 03:48 04/03/18 03:48 04/03/18 03:48 Vital Signs - Last 8 Hours Temp Pulse Resp BP Pulse Ox 04/06/18 07:15 97.9 F 82 18 92/43 94 04/06/18 04:28 98 F 84 17 98/63 94 Intake and Output 04/05/18 04/06/18 04/06/18 23:59 07:59 15:59 Intake Total 240 / 240 Output Total 25 / 25 100 / 100 Balance 215 / 215 -100 / -100 Intake: Oral 240 / 240 Output: Catheter 25 / 25 100 / 100 Other: Meal Dinner Percent of Meal Consumed 35% Stool Size Moderate Large Stool Consistency liquid liquid Stool Color Yellow Yellow Green Green # Bowel Movement Diapers 1 1 Weight 74 kg Blood Glucose* 132 200 Patient Weight 04/06/18 23:59 Weight 74 kg - General Appearance General appearance: chronically ill, fatigue EENT: ATNC, mucous membranes dry Neck: no JVD, supple Respiratory: clear (ant bilat) Cardiology: no edema, normal S1, normal S2 Gastrointestinal: no tenderness, no guarding Integumentary: warm and dry Neurologic: disoriented Musculoskeletal: no deformities Psychiatric: mood/affect appropriate, cooperative Results - Lab Results 04/07/18 04:00 04/07/18 04:00 Most recent lab results Calcium 8.3 mg/dL (8.6-10.3) L 04/06/18 05:15 Phosphorus 7.5 mg/dL (2.7-4.5) H 04/06/18 05:15 Consult Discharge Plan - Plan Referrals: Casi Smalls, RECORDS MANAGER [Primary Care Provider] -
[2018-04-06 10:56] LABS: Uric Acid 8.5 mg/dL (2.3-7.6)
[2018-04-06] MEDS ORDERED: cefTRIAXone 1,000 MG in Water for inj. (sterile) 20 ML 10 ML IVP SCH (11:00)
[2018-04-06] MEDS: 0.9 % Sodium Chloride 1,000 ML IVC SCH ×2 (11:18→20:29)
[2018-04-06 14:03] LABS: Bilirubin,Urine Moderate (Negative); Blood,Urine Moderate (Negative); Clarity,Urine Turbid (Clear); Color,Urine Dark Yellow (Yellow); Glucose,Urine (UA) Normal (Normal); Ketones,Urine Negative (Negative); Leukocyte Esterase,Urine Large (Negative); Nitrite,Urine Negative (Negative); PH,Urine 5.5 pH Units (5.0-8.0); Protein,Urine 30 mg/dL (Neg-Trace); Specific Gravity,Urine 1.008 (1.010-1.025); Urobilinogen,Urine Normal (Normal)
[2018-04-06 14:05] LABS: Bacteria,Urine Many per hpf (None-Few); Squamous Epithelial Cell,Urine Many per lpf (None-Few); WBC,Urine TNTC per hpf (0-3)
[2018-04-06 14:33] LABS: RBC,Urine Present per hpf (0-3)
[2018-04-06 14:34] LABS: Yeast,Urine Many per hpf (None Seen)
[2018-04-06 15:13] LABS: C.difficile Toxin A/B by PCR Not detected (Not detect); Campylobacter by PCR Not detected (Not detect); Plesiomonas shigelloides PCR Not detected (Not detect)
[2018-04-06 15:14] LABS: Adenovirus F 40/41 PCR Not detected (Not detect); Astrovirus PCR Not detected (Not detect); Cryptosporidium by PCR Not detected (Not detect); Cyclospora cayetanensis PCR Not detected (Not detect); E. coli O157 by PCR Not detected (Not detect); Entamoeba histolytica PCR Not detected (Not detect); Enteroaggregative E.coli(EAEC) Not detected (Not detect); Enteropathogenic E.coli(EPEC) Not detected (Not detect); Enterotoxigenic E.coli (ETEC) Not detected (Not detect); Giardia lamblia PCR Not detected (Not detect); Norovirus GI/GII PCR Not detected (Not detect); Rotavirus A PCR Not detected (Not detect); Sapovirus PCR Not detected (Not detect); Shig/EnteroinvasiveE coli EIEC Not detected (Not detect); Shigalike tox-prod E coli STEC Not detected (Not detect); Vibrio PCR Not detected (Not detect); Vibrio cholerae PCR Not detected (Not detect); Yersinia enterocolitica PCR Not detected (Not detect)
[2018-04-06 15:15] LABS: Salmonella PCR DETECTED (Not detect)
[2018-04-06] MEDS ORDERED: Calcium Chloride 1,000 MG in 0.9 % Sodium Chloride 100 ML IVPB ONE (15:15)
[2018-04-06] MEDS ORDERED: 0.9 % Sodium Chloride 1,000 ML IVC ONE ×2 (15:25→18:34)
[2018-04-06 15:36] LABS: Basophils % 0.1 %; Eosinophils # 0.1 K/mcL (0.0-0.6); Eosinophils % 1.1 %; Hematocrit 27.5 % (35.3-44.9); Hemoglobin 8.6 g/dL (11.5-15.4); Immature Granulocytes % 0.4 % (0-4); Lymphocytes # 0.7 K/mcL (0.6-4.6); Lymphocytes % 9.1 %; Mean Corpuscular HGB Conc 31.3 g/dL (31.6-35.5); Mean Corpuscular Hemoglobin 28.8 pg (28.0-33.3); Mean Platelet Volume 11.1 fL (9.4-12.4); Monocytes # 1.2 K/mcL (0.0-1.3); Monocytes % 16.2 %; Platelet Count 328 K/mcL (140-400); Red Blood Count 2.99 M/mcL (3.82-4.97); Red Cell Distribution Width 15.6 % (11.5-14.5); Segmented Neutrophils % 73.1 %
[2018-04-06 15:38] LABS: Neutrophils # 5.3 K/mcL (1.6-8.9)
--- NOTE | 2018-04-06 15:38 | Event Note ---
Date of Encounter: 04/06/18 Time of Encounter: 15:26 Rapid response was called as patient was found lethargic, hypotensive and bradicardic. As per nurse patient received her morning dosage of Metoprolol and Diltiazem. after resuscitation patient mental status improved. Transferred to ICU for close monitoring PH Gen: Awake, alert to person. Pulm: lungs clear to auscultation b/l Heart: Bradycardic, normal S1S2. Abd: soft, no tenderness Neuro: alert, oriented x2. followings commands. Extr: no edema. Assessment: 1. Hypotension most likely due dehydration 2. Salmonellosis 3. GABY/CKD 4. UTI 5. VTE prophylaxis 6. Bradycardia possible secondary to medication r/o ACS 7. AMS Plan Patient resuscitated with 1 litter of IV fluids given calcium chloride and 2mg of glucagon IV x1. After the 1 litters of NS, continue NS@75ml/hr If patient remains hypotensive consider NS boluses of 250ml. CBC, BMP, Mag, phosp and serial trops ordered cardiolgy consulted due to bradycardia Port chest x-ray Informed by the nurse that the patient is possitive for salmonella due to patient hypotension, continue Diarrhea requiring hospitalization will dc Ceftriaxone and start patient on Ciprofloxacin 400mg/IV BID Cardiology consulted due to Bradycardia
[2018-04-06 15:49] LABS: Potassium 4.9 mEq/L (3.5-5.1)
[2018-04-06 15:50] LABS: Calcium 10.5 mg/dL (8.6-10.3); Magnesium 2.1 mg/dL (1.6-2.6)
[2018-04-06] MEDS ORDERED: *HR* Heparin 5,000 UNIT/ML VIAL IVP ONE (16:04)
[2018-04-06] MEDS ORDERED: *HR* Heparin 5,000 UNIT/ML VIAL IVP PRN ×2 (16:04)
[2018-04-06 16:31] LABS: Heparin anti-factor XA UFH 0.03 IU/mL (0.30-0.70); Prothrombin Time 11.2 Seconds (9.4-12.1)
[2018-04-06 17:11] LABS: Hematocrit 26.9 % (35.3-44.9); Hemoglobin 8.3 g/dL (11.5-15.4); Mean Corpuscular HGB Conc 30.9 g/dL (31.6-35.5); Mean Corpuscular Hemoglobin 28.5 pg (28.0-33.3); Mean Corpuscular Volume 92.4 fL (83.0-100.0); Mean Platelet Volume 10.9 fL (9.4-12.4); Platelet Count 303 K/mcL (140-400); Red Blood Count 2.91 M/mcL (3.82-4.97); Red Cell Distribution Width 15.4 % (11.5-14.5)
[2018-04-06] MEDS: Heparin 25,000 UNIT/500 ML D5W 25,000 UNIT/500 ML BAG IVC SCH (17:57)
[2018-04-06] MEDS: Insulin DETEMIR 100 UNIT/ML X5UNITS SQ SCH (20:38)
[2018-04-06] MEDS ORDERED: Lidocaine -MPF 1% 5 ML AMPUL INFILT ONE (22:33)
--- NOTE | 2018-04-06 23:56 | Procedure Note ---
Date of procedure: 04/06/18 Pre-op diagnosis: Hemodynamic Monitoring/Intravenous Access Post-op diagnosis: same Procedure: A time-out was completed verifying correct patient, procedure, site, positioning. The patient was placed in a dependent position appropriate for central line placement based on the right femoral vein to be cannulated. The patients right groin was prepped and draped in sterile fashion. 1% Lidocaine was used to anesthetize the surrounding skin area. A triple lumen Cordis catheter was introduced into the the common femoral vein under ultrasound guidance. The catheter was threaded smoothly over the guide wire and appropriate blood return was obtained. Each lumen of the catheter was evacuated of air and flushed with sterile saline. The catheter was then sutured in place to the skin and a sterile dressing applied. Perfusion to the extremity distal to the point of catheter insertion was checked and found to be adequate. Dr. Solo was present for the entire procedure. Anesthesia: regional Surgeon: Ernie Adams Was there an assistant offset press operator present: Yes Setter Cold Rolling Machine: Kamlesh Solo Estimated blood loss (cc): 20 Specimen: none Pathology: none sent Disposition: ICU
[2018-04-07] MEDS ORDERED: Ringers Solution, Lactated 1,000 ML IVC ONE (02:39)
[2018-04-07] MEDS: Norepinephrine 4 MG in D5% in Water 250 ML IVC SCH ×3 (03:02→20:13)
[2018-04-07 04:43] LABS: Basophils % 0.1 %; Eosinophils # 0.1 K/mcL (0.0-0.6); Eosinophils % 0.8 %; Hematocrit 25.8 % (35.3-44.9); Immature Granulocytes % 0.8 % (0-4); Lymphocytes # 0.8 K/mcL (0.6-4.6); Lymphocytes % 9.9 %; Mean Corpuscular Hemoglobin 28.5 pg (28.0-33.3); Mean Corpuscular Volume 91.8 fL (83.0-100.0); Mean Platelet Volume 10.9 fL (9.4-12.4); Monocytes # 1.3 K/mcL (0.0-1.3); Monocytes % 16.4 %; Neutrophils # 5.7 K/mcL (1.6-8.9); Platelet Count 335 K/mcL (140-400); Red Blood Count 2.81 M/mcL (3.82-4.97); Red Cell Distribution Width 15.3 % (11.5-14.5)
[2018-04-07 04:55] LABS: ABG Base Excess -5 mEq/L (-2 to 3); ABG HCO3 22 mEq/L (21-27); ABG Oxygen Saturation 93 % (95-98); ABG PCO2 44 mmHg (35-45); ABG PO2 75 mmHg (85-104); ABG TCO2 23 mEq/L (20-26)
[2018-04-07 05:01] LABS: Albumin 2.6 g/dL (3.5-5.7); Calcium 8.2 mg/dL (8.6-10.3); Phosphorous 6.1 mg/dL (2.7-4.5); Potassium 4.4 mEq/L (3.5-5.1)
[2018-04-07] MEDS: Levothyroxine 25 MCG TABLET PO SCH (05:43)
[2018-04-07] MEDS ORDERED: Ipratropium/Albuterol Neb 3 ML IH PRN (05:53)
[2018-04-07 08:31] LABS: Troponin I 6.53 ng/mL (< 0.04)
[2018-04-07] MEDS: Gabapentin 100 MG CAPSULE PO SCH ×2 (08:32→20:17)
[2018-04-07] MEDS: Aspirin Enteric Coated 81 MG Tablet PO SCH (08:32)
[2018-04-07] MEDS: Insulin LISPRO 300 UNITS/3 ML VIAL SQ SCH ×4 (08:33→20:11)
[2018-04-07 08:40] LABS: Thyroid Stimulating Hormone 1.324 mcIU/mL (0.340-5.600)
--- NOTE | 2018-04-07 08:50 | Pulmonology Consult Note ---
<Nils Acuna R - Last Filed: 04/07/18 12:59> Date of Encounter: 04/07/18 Time of Encounter: 08:10 Assessment and Plan (1) Hypotension Current Visit: Yes Status: Acute Hypotension and bradycardia developed yesterday afternoon. Patient did receive home antihypertensive medications yesterday morning. Patient reporting decreased oral intake and diarrhea over the past several days. No elevation in WBC or serum lactate. decreasing urine output, with a component of hypotension likely related to hypovolemia. Troponin was elevated yesterday at 9.42. Patient has received volume resuscitation with normal saline bolus yesterday, as well as gentle maintenance of 75 ML's per hour. Systolic blood pressures remain in the 90s this morning on norepinephrine, Regular heart rate Wean pressors as tolerated Hold home antihypertensives in the setting of hypotension Will obtain TSH and random cortisol Qualifiers: Hypotension type: hypotension due to hypovolemia Qualified Code(s): I95.89 - Other hypotension; E86.1 - Hypovolemia (2) UTI (urinary tract infection) Current Visit: No Status: Acute Gram-negative rods identified on urine culture preliminary result, the result and sensitivities are pending. Blood cultures with negative growth to date. We will continue antibiotic coverage with ciprofloxacin (day 2) Qualifiers: Urinary tract infection type: acute cystitis Hematuria presence: with hematuria Qualified Code(s): N30.01 - Acute cystitis with hematuria (3) Salmonella Current Visit: Yes Status: Acute Patient stool studies were positive for Salmonella, stool culture is pending. Patient reporting improvement diarrhea with no bowel movement since yesterday. Denies abdominal pain, no leukocytosis, no fevers We will continue treatment with ciprofloxacin for coverage of Salmonella and UTI , currently day 2 treatment will plan for 7-10 day duration. (4) Elevated troponin Current Visit: No Status: Acute Troponin done to be elevated at 9.42 yesterday evening. Repeat troponin this morning at 6.53. Patient denies chest pain or worsening shortness of breath. Troponins are trending down, we will continue to follow Cardiology was contacted by hospitalist yesterday, reporting that patient was not a [facility] candidate to to worsening renal status. Patient was subsequently placed on heparin drip. Will continue home aspirin and Plavix. Echocardiogram was obtained yesterday, report is pending I have spoken with infection control coordinator production roustabout this morning. Will place formal consult this evening. Will continue medical management at this time and continue to monitor patient and labs. If no improvement in clinical status, will reevaluate need for LHC. (5) GABY (acute kidney injury) Current Visit: Yes Status: Acute Stage IV chronic kidney disease with recent acute kidney injury and increasing creatinine from 3>5.8>5.18, patient did receive fluid boluses yesterday and remains on 75 ML's per hour maintenance fluid. Nephrology has been consultation and is following, appreciate their recommendations. May need additional fluid bolus this morning. We will discuss with patient and family goals of care (6) CKD (chronic kidney disease) stage 4, GFR 15-29 ml/min Current Visit: Yes Status: Chronic Stage IV chronic kidney disease in the setting of recent renal insult and GABY. Nephrology following and Treatment as above. (7) Diarrhea Current Visit: Yes Status: Acute Diarrhea over past several days, is improved over the last 24 hours since initiation of antibiotic therapy. With patient reporting no loose bowel movement since yesterday. Stool studies were positive for Salmonella, treatment as outlined above. Qualifiers: Diarrhea type: infectious Qualified Code(s): A09 - Infectious gastroenteritis and colitis, unspecified (8) Diabetes mellitus Current Visit: Yes Status: Chronic Medium dose corrective sliding scale and 5 units Levemir at bedtime We will follow for glycemic control and adjust as necessary. Qualifiers: Diabetes mellitus type: type 2 Diabetes mellitus bottle tester insulin use: without bottle tester use Diabetes mellitus complication status: with hypoglycemia Diabetes mellitus complication detail: without coma Qualified Code(s): E11.649 - Type 2 diabetes mellitus with hypoglycemia without coma (9) Hypothyroidism Current Visit: Yes Status: Acute Continue home levothyroxine. Qualifiers: Hypothyroidism type: unspecified Qualified Code(s): E03.9 - Hypothyroidism , unspecified (10) DVT prophylaxis Current Visit: No Status: Acute Patient is on heparin drip History of Present Illness Consult date: 04/06/18 Requesting physician: Philip Manuel Reason for consult: other (hypotension/bradycardia) Chief complaint: diarrhea History of present illness: Patient is a 83-year-old female with a history of DM, CKD stage IV, HTN was admitted on 04/03/2018 after initial evaluation for hypoglycemia, diarrhea, in generally unwell feeling. Patient was subsequently found to have UTI and stool studies positive for Salmonella. Patient was started on ciprofloxacin on 04/06. Yesterday evening patient was found to be lethargic with bradycardia and hypotension. No significant findings on chest x-ray at that time. Troponin was found to be elevated at 9.46, hospitalist reports discussing patient with cardiology. Patient is not a candidate for left heart catheter due to worsening kidney function, patient was subsequently started on heparin drip. Patient was transferred to ICU for closer monitoring and further management. No acute events overnight. Patient has maintained normal heart rate and systolic blood pressures in the 90s on norepinephrine. Past Med Surg Social Fam HX - Past Medical History Medical history: cancer, coronary artery disease, diabetes, hypertension, myocardial infarction, renal disease Additional medical history: Gout Psychiatric history: no psych history - Past Surgical History Surgical History: cancer surgery, coronary bypass (CABG) - Social History Smoking Status: Former smoker Smokeless Tobacco Status: No Alcohol use: none Drug use: none Medications and Allergies Clopidogrel [Plavix] 75 mg PO DAILY 07/03/16 [History] Diltiazem HCl [Diltiazem ER] 120 mg PO DAILY 07/03/16 [History] Gabapentin [Neurontin] 100 mg PO BID 07/03/16 [History] Levothyroxine [Synthroid] 25 mcg PO 0630 07/03/16 [History] Metoprolol [Lopressor] 50 mg PO BID 07/03/16 [History] Timolol Maleate 0.25% 1 drop RIGHT EYE BID 07/03/16 [History] Ubidecarenone/Vitamin E [Co Q-10 50 mg Softgel] 1 tab PO DAILY 07/03/16 [History ] Insulin DETEMIR [Levemir] 40 units SQ DAILY 01/01/18 [History] Lisinopril 2.5 mg PO DAILY 01/01/18 [History] Aspirin Enteric Coated [Aspirin EC] 81 mg PO DAILY #30 tablet. 01/10/18 [Rx] Atorvastatin [Lipitor] 40 mg PO HS #30 tablet 01/10/18 [Rx] Furosemide [Lasix] 40 mg PO DAILY #30 tablet 01/10/18 [Rx] Sodium Bicarbonate 650 mg PO BID #30 tablet 01/10/18 [Rx] 3 Allergy/AdvReac Type Severity Reaction Status Date / Time No Known Allergies Allergy Verified 01/01/18 15:34 All Systems: The remainder of the systems were reviewed and are negative - Cardiovascular Cardiovascular: no chest pain - Gastrointestinal Gastrointestinal: no abdominal pain, no diarrhea Physical Examination Vital Signs: Vital Signs, Last 4 Hours Pulse Resp BP Pulse Ox 04/07/18 06:00 67 16 100/50 99 04/07/18 05:30 69 18 111/54 100 General appearance: no acute distress Eyes: nonicteric ENT: oropharynx moist Neck: supple Effort: mildly labored (Oxymask in place) Inspection: normal Auscultation: bilateral: clear, diminished breath sounds Cardiovascular: regular rate and rhythm Gastrointestinal: normoactive bowel sounds, soft, non-tender, non-distended Integumentary: normal Extremities: no cyanosis, pink and warm, edema (Mild bilateral lower extremity edema) Musculoskeletal: no deformities Gait: normal posture normal mental status, non-focal exam mood appropriate Results - Laboratory Findings CBC and BMP: 04/07/18 04:00 04/07/18 04:00 ABG ABG pH 7.30 pH Units (7.32-7.45) L 04/07/18 04:50 ABG pCO2 44 mmHg (35-45) 04/07/18 04:50 ABG pO2 75 mmHg (85-104) L 04/07/18 04:50 ABG O2 Saturation 93 % (95-98) L 04/07/18 04:50 PT/INR, D-dimer PT 11.2 Seconds (9.4-12.1) 04/06/18 15:13 Abnormal lab findings: Abnormal lab results RBC 2.81 M/mcL (3.82-4.97) L 04/07/18 04:00 Hgb 8.0 g/dL (11.5-15.4) L 04/07/18 04:00 Hct 25.8 % (35.3-44.9) L 04/07/18 04:00 MCHC 31.0 g/dL (31.6-35.5) L 04/07/18 04:00 RDW 15.3 % (11.5-14.5) H 04/07/18 04:00 Heparin Anti-Xa, Unfract 0.84 IU/mL (0.30-0.70) H 04/07/18 07:30 ABG pH 7.30 pH Units (7.32-7.45) L 04/07/18 04:50 ABG pO2 75 mmHg (85-104) L 04/07/18 04:50 ABG O2 Saturation 93 % (95-98) L 04/07/18 04:50 ABG Base Excess -5 mEq/L (-2 to 3) L 04/07/18 04:50 Sodium 129 mEq/L (136-145) L 04/07/18 04:00 Carbon Dioxide 18 mEq/L (23-29) L 04/07/18 04:00 BUN 99 mg/dL (8-23) H 04/07/18 04:00 Creatinine 5.18 mg/dL (0.60-1.20) H 04/07/18 04:00 Est GFR ( Amer) 10 (> 60) L 04/07/18 04:00 Est GFR (Non-Af Amer) 8 (> 60) L 04/07/18 04:00 Glucose 123 mg/dL (70-105) H 04/07/18 04:00 POC Glucose 151 mg/dL (70-99) H 04/07/18 07:57 Uric Acid 8.5 mg/dL (2.3-7.6) H 04/06/18 05:15 Calcium 8.2 mg/dL (8.6-10.3) L 04/07/18 04:00 Phosphorus 6.1 mg/dL (2.7-4.5) H 04/07/18 04:00 Creatine Kinase 342 Units/L (30-223) H 04/06/18 05:15 Troponin I 6.53 ng/mL (< 0.04) H* 04/07/18 04:00 Albumin 2.6 g/dL (3.5-5.7) L 04/07/18 04:00 Albumin/Globulin Ratio 1.0 (1.1-2.2) L 04/03/18 04:05 Urine Clarity Turbid (Clear) A 04/06/18 13:55 Ur Specific [place] 1.008 (1.010-1.025) L 04/06/18 13:55 Urine Protein 30 mg/dL (Neg-Trace) H 04/06/18 13:55 Urine Blood Moderate (Negative) H 04/06/18 13:55 Urine Bilirubin Moderate (Negative) H 04/06/18 13:55 Ur Leukocyte Esterase Large (Negative) H 04/06/18 13:55 Urine Microscopic WBC TNTC per hpf (0-3) H 04/06/18 13:55 Ur Squamous Epith Cells Many per lpf (None-Few) H 04/06/18 13:55 Amorphous Sediment Moderate (Few) H 04/03/18 05:37 Urine Bacteria Many per hpf (None-Few) H 04/06/18 13:55 Hyaline Casts Moderate per lpf (None-Few) H 04/03/18 05:37 Urine Mucus Many (Few) H 04/03/18 05:37 Urine Yeast Many per hpf (None Seen) H 04/06/18 13:55 Ur Culture Indicated? NO. (NO) A 04/06/18 13:55 Stool Salmonella PCR DETECTED (Not detect) A* 04/06/18 13:12 - Clinical Findings Intake & Output: Intake & Output 04/06/18 04/07/18 04/07/18 23:59 07:59 15:59 Intake Total 1230 / 1230 1228.3 / 1228.3 Output Total 40 / 40 25 / 25 Balance 1190 / 1190 1203.3 / 1203.3 Weight 75.3 kg Consult Discharge Plan - Plan Referrals: Casi Smalls, [employer]ER [Primary Care Provider] - <Tomy Fraser S - Last Filed: 04/07/18 22:12> Date of Encounter: 04/07/18 All Systems: The remainder of the systems were reviewed and are negative Physical Examination Vital Signs: Vital Signs, Last 4 Hours Temp Pulse Resp BP Pulse Ox 04/07/18 15:00 96.2 F L 61 18 94/57 96 04/07/18 14:00 64 16 99/51 94 04/07/18 13:00 62 18 84/44 95 04/07/18 12:00 65 18 97/44 97 Results - Laboratory Findings CBC and BMP: 04/07/18 04:00 04/07/18 04:00 ABG ABG pH 7.30 pH Units (7.32-7.45) L 04/07/18 04:50 ABG pCO2 44 mmHg (35-45) 04/07/18 04:50 ABG pO2 75 mmHg (85-104) L 04/07/18 04:50 ABG O2 Saturation 93 % (95-98) L 04/07/18 04:50 PT/INR, D-dimer PT 11.2 Seconds (9.4-12.1) 04/06/18 15:13 Abnormal lab findings: Abnormal lab results RBC 2.81 M/mcL (3.82-4.97) L 04/07/18 04:00 Hgb 8.0 g/dL (11.5-15.4) L 04/07/18 04:00 Hct 25.8 % (35.3-44.9) L 04/07/18 04:00 MCHC 31.0 g/dL (31.6-35.5) L 04/07/18 04:00 RDW 15.3 % (11.5-14.5) H 04/07/18 04:00 ABG pH 7.30 pH Units (7.32-7.45) L 04/07/18 04:50 ABG pO2 75 mmHg (85-104) L 04/07/18 04:50 ABG O2 Saturation 93 % (95-98) L 04/07/18 04:50 ABG Base Excess -5 mEq/L (-2 to 3) L 04/07/18 04:50 Sodium 129 mEq/L (136-145) L 04/07/18 04:00 Carbon Dioxide 18 mEq/L (23-29) L 04/07/18 04:00 BUN 99 mg/dL (8-23) H 04/07/18 04:00 Creatinine 5.18 mg/dL (0.60-1.20) H 04/07/18 04:00 Est GFR ( Amer) 10 (> 60) L 04/07/18 04:00 Est GFR (Non-Af Amer) 8 (> 60) L 04/07/18 04:00 Glucose 123 mg/dL (70-105) H 04/07/18 04:00 POC Glucose 165 mg/dL (70-99) H 04/07/18 15:18 Uric Acid 8.5 mg/dL (2.3-7.6) H 04/06/18 05:15 Calcium 8.2 mg/dL (8.6-10.3) L 04/07/18 04:00 Phosphorus 6.1 mg/dL (2.7-4.5) H 04/07/18 04:00 Creatine Kinase 342 Units/L (30-223) H 04/06/18 05:15 Troponin I 6.53 ng/mL (< 0.04) H* 04/07/18 04:00 Albumin 2.6 g/dL (3.5-5.7) L 04/07/18 04:00 Albumin/Globulin Ratio 1.0 (1.1-2.2) L 04/03/18 04:05 Urine Clarity Turbid (Clear) A 04/07/18 11:20 Urine Protein 100 mg/dL (Neg-Trace) H 04/07/18 11:20 Urine Blood Small (Negative) H 04/07/18 11:20 Urine Bilirubin Moderate (Negative) H 04/07/18 11:20 Ur Leukocyte Esterase Large (Negative) H 04/07/18 11:20 Urine Microscopic RBC 3-5 per hpf (0-3) H 04/07/18 11:20 Urine Microscopic WBC TNTC per hpf (0-3) H 04/07/18 11:20 Ur Squamous Epith Cells Many per lpf (None-Few) H 04/07/18 11:20 Amorphous Sediment Moderate (Few) H 04/03/18 05:37 Urine Mucus Many (Few) H 04/03/18 05:37 Urine Yeast Many per hpf (None Seen) H 04/07/18 11:20 Ur Culture Indicated? NO. (NO) A 04/06/18 13:55 Stool Salmonella PCR DETECTED (Not detect) A* 04/06/18 13:12 - Clinical Findings Intake & Output: Intake & Output 04/06/18 04/07/18 04/07/18 23:59 07:59 15:59 Intake Total 1230 / 1230 1228.3 / 1228.3 172 / 172 Output Total 40 / 40 25 / 25 70 / 70 Balance 1190 / 1190 1203.3 / 1203.3 102 / 102 Weight 75.3 kg - Attending Attestation I saw and evaluated this patient and my medical decision-making was reviewed with the Resident Physician. I agree with the documented findings, disposition and treatment plan as described except to the extent set forth below. We independently had tfml-[id number]-ienn contact with the patient I spent 40 minutes of Critical Care time with this patient. It involved decision making of high complexity to assess, manipulate, and support vital organ system failure and/or to prevent further life threatening deterioration of the patient's condition. The time involved in the performance of separately reportable procedures was not counted toward critical care time. Patient seen and examined at bedside Labs, radiology, chart personally reviewed. Management was reviewed during multidisciplinary critical care rounds. REHAB TECHNICIAN: Patient is conscious oriented following commands in mild distress. No focal neurological deficit no acute neurological issues. Pulm: is acceptable oxygenation and ventilation patient is stable on nasal cannula if she shows signs of fluid overload patient will need BiPAP family decided against intubation the patient is DO NOT INTUBATE Cards: Patient most likely developed cardiogenic shock complicated by hypokalemia patient developed bradycardia and hypotension most likely contributed to the medication she was given. Patient is on levo fed to titrated down to the map of 65 patient may need more fluid will give 500 mg abnormal bolus and we will give gentle hydration. Counseled the nursing staff to look for worsening VQ mismatch . The patient will need left heart catheterization if family wants full aggressive measures should be a high risk candidate for LHC . FEN-GI: Advance diet as tolerated Renal: Labs and output reviewed acute on chronic kidney injury worsening kidney function appreciate nephrology recommendation we will try hydration for now she might be volume depleted because of her presentation of diarrhea and not able to eat and drink also ID: Patient stool was positive for salmonella patient also have UTI patient is on ciprofloxacin initially she was on ceftriaxone. Not convinced that sepsis like picture will closely monitor in case we will need to broaden the coverage of antibiotics. Heme/Onc: Labs reviewed. Endo: Glucose Monitored Integ/MSK: Skin Care per routine ICU Nursing Protocol to prevent ulcers. Lines: All lines examined without evidence of infection : Dispo: critically ill CODE: [id number] to Consult Palliative care to discuss about goals of care.
--- NOTE | 2018-04-07 11:36 | Nephrology Progress Note ---
Date of Encounter: 04/07/18 Time of Encounter: 11:20 - Assessment and Plan (1) GABY (acute kidney injury) Current Visit: Yes Status: Acute SCr peaked at 5.86, GFR 7 yesterday and improved at 5.18, GFR 8 UOP noted at 140cc in the past 24hrs Will bolus 500cc NS now and resume NS at 75cc/hr Discussed with pt goals of care and she reports being open to GLASS TECHNICIAN however, critical care team reports family wants to maintain DNR/DNI status and only approved central line with pressors. Will need to clarify with them if renal fxn fails to improve CPK and uric acid level noted Urine sodium noted, will repeat now off fluids (2) CKD (chronic kidney disease) stage 4, GFR 15-29 ml/min Current Visit: Yes Status: Acute (3) Diarrhea Current Visit: Yes Status: Acute Qualifiers: Diarrhea type: infectious Qualified Code(s): A09 - Infectious gastroenteritis and colitis, unspecified Subjective Interval history: Pt seen and examined now in the icu after an episode of bradycardia and hypotension yesterday after receiving cardizem and metoprolol. She was also diagnosed with salmonella in her stool. Pt appears slightly less disoriented today than yesterday. No family present at bedside. Per nurse, she recived a total of 3 liters yesterday and has minimal UOP. Objective - Vital Signs Vital signs: Vital Signs Temp Pulse Resp BP Pulse Ox 04/07/18 10:00 61 16 92/46 94 04/07/18 09:00 18 95/33 94 04/07/18 08:00 97.4 F L 65 16 90/65 100 04/07/18 07:00 64 16 90/58 100 04/07/18 06:00 67 16 100/50 99 04/07/18 05:30 69 18 111/54 100 04/07/18 04:30 81 22 98/40 97 04/07/18 04:15 97.5 F L 04/07/18 03:00 105 18 84/45 96 04/07/18 02:08 123 13 90/53 92 04/07/18 01:00 57 14 90/44 96 04/07/18 00:20 58 14 76/38 95 04/07/18 00:00 97.4 F L 04/06/18 23:00 60 16 83/39 94 04/06/18 22:30 60 16 84/45 94 04/06/18 21:18 61 18 81/50 95 04/06/18 21:00 97 04/06/18 20:45 62 18 90/55 96 04/06/18 19:45 97.5 F L 67 20 93/46 96 04/06/18 18:00 96 20 96/39 100 04/06/18 17:00 103 20 93/63 98 04/06/18 16:39 97.5 F L 111 20 95/48 97 Intake and Output 04/06/18 04/07/18 04/07/18 23:59 07:59 15:59 Intake Total 1230 / 1230 1228.3 / 1228.3 120 / 120 Output Total 40 / 40 25 / 25 0 / 0 Balance 1190 / 1190 1203.3 / 1203.3 120 / 120 Intake: IV Fluids 1200 / 1200 1228.3 / 1228.3 120 / 120 0.9 % Sodium Chloride 1,000 ML 1000 / 1000 1000 / 1000 @ 75 mls/hr IVC .[id number] [facility] Rx #:[id number] DOPamine Premix 400mg/250mL 400 66.9 / 66.9 mg In 250 ml @ 5 MCG/KG/MIN 13 .875 mls/hr IVC .Q18H2M [facility] Rx# :[id number] Heparin 25,000 UNIT/500 ML D5W 125 / 125 120 / 120 25,000 unit In 500 ml @ 14 UNIT /KG/HR 20.72 mls/hr IVC .Q24H [facility] Rx#:[id number] Levophed 4 MG In Dextrose 5% 36.4 / 36.4 250 ML @ 10 MCG/MIN 38.1 mls/hr IVC CONT [facility] Rx#:[id number] Cipro Premix 400 MG/200 ML 400 200 / 200 mg In 200 ml @ 200 mls/hr IVPB Q18H [facility] Rx#:[id number] Oral 30 / 30 Output: Catheter / 40 25 / 25 0 / 0 Other: Weight 75.3 kg Blood Glucose* 225 151 Patient Weight 04/07/18 23:59 Weight 75.3 kg - General Appearance General appearance: Present: chronically ill, frail EENT: Present: ATNC, mucous membranes dry Neck: Present: no JVD, supple Additional Comments: good areation ant bilat Cardiology: Present: no edema, normal S1, normal S2 Gastrointestinal: Present: no tenderness, no guarding Integumentary: Present: warm and dry Neurologic: Present: disoriented Musculoskeletal: Present: no deformities Psychiatric: Present: mood/affect appropriate, cooperative - Lab 04/07/18 04:00 04/07/18 04:00 Most recent lab results ABG pH 7.30 pH Units (7.32-7.45) L 04/07/18 04:50 ABG pCO2 44 mmHg (35-45) 04/07/18 04:50 ABG pO2 75 mmHg (85-104) L 04/07/18 04:50 ABG HCO3 22 mEq/L (21-27) 04/07/18 04:50 ABG O2 Saturation 93 % (95-98) L 04/07/18 04:50 Calcium 8.2 mg/dL (8.6-10.3) L 04/07/18 04:00 Phosphorus 6.1 mg/dL (2.7-4.5) H 04/07/18 04:00 Magnesium 1.8 mg/dL (1.6-2.6) 04/07/18 04:00 Urine Sodium 39.8 mEq/L 04/06/18 13:55 Consult Discharge Plan - Plan Referrals: Casi Smalls, FLAQUITA [Primary Care Provider] -
[2018-04-07 11:49] LABS: Bilirubin,Urine Moderate (Negative); Blood,Urine Small (Negative); Clarity,Urine Turbid (Clear); Color,Urine Dark Yellow (Yellow); Glucose,Urine (UA) Normal (Normal); Ketones,Urine Negative (Negative); Leukocyte Esterase,Urine Large (Negative); Nitrite,Urine Negative (Negative); Protein,Urine 100 mg/dL (Neg-Trace); Specific Gravity,Urine 1.016 (1.010-1.025); Urobilinogen,Urine Normal (Normal)
[2018-04-07 11:54] LABS: Bacteria,Urine Few per hpf (None-Few); Hyaline Casts,Urine Few per lpf (None-Few); Squamous Epithelial Cell,Urine Many per lpf (None-Few); WBC,Urine TNTC per hpf (0-3)
[2018-04-07 12:55] LABS: Yeast,Urine Many per hpf (None Seen)
[2018-04-07] MEDS: 0.9 % Sodium Chloride 1,000 ML IVC SCH ×2 (15:02→21:52)
[2018-04-07] MEDS: Insulin DETEMIR 100 UNIT/ML X5UNITS SQ SCH (20:17)
[2018-04-07] MEDS: Heparin 25,000 UNIT/500 ML D5W 25,000 UNIT/500 ML BAG IVC SCH (20:27)
[2018-04-08 03:31] LABS: Basophils % 0.1 %; Eosinophils # 0.1 K/mcL (0.0-0.6); Eosinophils % 0.9 %; Hematocrit 24.5 % (35.3-44.9); Hemoglobin 7.6 g/dL (11.5-15.4); Immature Granulocytes % 1.2 % (0-4); Lymphocytes # 0.9 K/mcL (0.6-4.6); Lymphocytes % 11.1 %; Mean Corpuscular Hemoglobin 28.6 pg (28.0-33.3); Mean Corpuscular Volume 92.1 fL (83.0-100.0); Mean Platelet Volume 10.6 fL (9.4-12.4); Monocytes # 1.1 K/mcL (0.0-1.3); Monocytes % 14.2 %; Neutrophils # 5.6 K/mcL (1.6-8.9); Platelet Count 271 K/mcL (140-400); Red Blood Count 2.66 M/mcL (3.82-4.97); Red Cell Distribution Width 15.7 % (11.5-14.5); Segmented Neutrophils % 72.5 %
[2018-04-08 03:46] LABS: Calcium 7.9 mg/dL (8.6-10.3); Magnesium 1.7 mg/dL (1.6-2.6); Phosphorous 6.5 mg/dL (2.7-4.5); Potassium 4.3 mEq/L (3.5-5.1)
[2018-04-08] MEDS: Heparin 25,000 UNIT/500 ML D5W 25,000 UNIT/500 ML BAG IVC SCH (05:30)
[2018-04-08] MEDS: Levothyroxine 25 MCG TABLET PO SCH (05:38)
--- NOTE | 2018-04-08 07:14 | Pulmonology Progress Note ---
Date of Encounter: 04/08/18 Time of Encounter: 07:13 Objective PUL Vital signs: Last Vital Signs Temp 96.2 F L 04/08/18 05:28 Pulse 81 04/08/18 06:00 Resp 18 04/08/18 06:00 BP 105/62 04/08/18 06:00 Pulse Ox 96 04/08/18 06:00 Results - Laboratory Findings CBC and BMP: 04/08/18 03:18 04/08/18 03:18 ABG ABG pH 7.30 pH Units (7.32-7.45) L 04/07/18 04:50 ABG pCO2 44 mmHg (35-45) 04/07/18 04:50 ABG pO2 75 mmHg (85-104) L 04/07/18 04:50 ABG O2 Saturation 93 % (95-98) L 04/07/18 04:50 PT/INR, D-dimer PT 11.2 Seconds (9.4-12.1) 04/06/18 15:13 Abnormal lab findings: Abnormal lab results RBC 2.66 M/mcL (3.82-4.97) L 04/08/18 03:18 Hgb 7.6 g/dL (11.5-15.4) L 04/08/18 03:18 Hct 24.5 % (35.3-44.9) L 04/08/18 03:18 MCHC 31.0 g/dL (31.6-35.5) L 04/08/18 03:18 RDW 15.7 % (11.5-14.5) H 04/08/18 03:18 ABG pH 7.30 pH Units (7.32-7.45) L 04/07/18 04:50 ABG pO2 75 mmHg (85-104) L 04/07/18 04:50 ABG O2 Saturation 93 % (95-98) L 04/07/18 04:50 ABG Base Excess -5 mEq/L (-2 to 3) L 04/07/18 04:50 Sodium 131 mEq/L (136-145) L 04/08/18 03:18 Carbon Dioxide 20 mEq/L (23-29) L 04/08/18 03:18 BUN 94 mg/dL (8-23) H 04/08/18 03:18 Creatinine 4.86 mg/dL (0.60-1.20) H 04/08/18 03:18 Est GFR ( Amer) 10 (> 60) L 04/08/18 03:18 Est GFR (Non-Af Amer) 9 (> 60) L 04/08/18 03:18 Glucose 108 mg/dL (70-105) H 04/08/18 03:18 POC Glucose 157 mg/dL (70-99) H 04/07/18 20:10 Calculated Osmolality 302 (280-300) H 04/08/18 03:18 Uric Acid 8.5 mg/dL (2.3-7.6) H 04/06/18 05:15 Calcium 7.9 mg/dL (8.6-10.3) L 04/08/18 03:18 Phosphorus 6.5 mg/dL (2.7-4.5) H 04/08/18 03:18 Creatine Kinase 342 Units/L (30-223) H 04/06/18 05:15 Troponin I 6.53 ng/mL (< 0.04) H* 04/07/18 04:00 Albumin 2.6 g/dL (3.5-5.7) L 04/07/18 04:00 Albumin/Globulin Ratio 1.0 (1.1-2.2) L 04/03/18 04:05 Urine Clarity Turbid (Clear) A 04/07/18 11:20 Urine Protein 100 mg/dL (Neg-Trace) H 04/07/18 11:20 Urine Blood Small (Negative) H 04/07/18 11:20 Urine Bilirubin Moderate (Negative) H 04/07/18 11:20 Ur Leukocyte Esterase Large (Negative) H 04/07/18 11:20 Urine Microscopic RBC 3-5 per hpf (0-3) H 04/07/18 11:20 Urine Microscopic WBC TNTC per hpf (0-3) H 04/07/18 11:20 Ur Squamous Epith Cells Many per lpf (None-Few) H 04/07/18 11:20 Amorphous Sediment Moderate (Few) H 04/03/18 05:37 Urine Mucus Many (Few) H 04/03/18 05:37 Urine Yeast Many per hpf (None Seen) H 04/07/18 11:20 Ur Culture Indicated? NO. (NO) A 04/06/18 13:55 Stool Salmonella PCR DETECTED (Not detect) A* 04/06/18 13:12 - Clinical Findings Intake & Output: Intake & Output 04/07/18 04/07/18 04/08/18 15:59 23:59 07:59 Intake Total 389.6 / 389.6 1604 / 1604 300 / 300 Output Total 70 / 70 25 / 25 175 / 175 Balance 319.6 / 319.6 1579 / 1579 125 / 125 Weight 82.3 kg Consult Discharge Plan - Plan Referrals: Casi Smalls, COMPRESSOR MECHANIC [Primary Care Provider] -
[2018-04-08] MEDS: Aspirin Enteric Coated 81 MG Tablet PO SCH (07:59)
[2018-04-08] MEDS: Gabapentin 100 MG CAPSULE PO SCH (07:59)
[2018-04-08] MEDS: Insulin LISPRO 300 UNITS/3 ML VIAL SQ SCH ×4 (08:00→19:43)
--- NOTE | 2018-04-08 09:48 | Pulmonology Progress Note ---
Date of Encounter: 04/08/18 Time of Encounter: 09:46 Assessment and Plan (1) Hypotension Current Visit: Yes Status: Acute Patient seen and examined at bedside Labs, radiology, chart personally reviewed. Management was reviewed during multidisciplinary critical care rounds. Below reflects my systems based assessment and plan SAP SD ANALYST: The patient is awake and alert no evidence of the focal neurological deficit she is at high risk for delirium and we will monitor closely for this avoid sensory deprivation and limits SAP SD ANALYST altering medications as able Pulm: Acute on chronic respiratory failure acceptable oxygenation today I suspect in large part this is a manifestation of hydrostatic pulmonary edema Cards: Hypotension which is multifactorial including infection NSTEMI and chronic heart failure. Cardiology's been consulted for NSTEMI. She is not deemed a candidate for left heart catheterization because of her chronic kidney failure which was acutely worse echocardiogram was notable for preserved ejection fraction and was limited study because about the habitus also noted bradycardia but this has resolved. Continue diuresis tolerated for hydrostatic edema GI: She has evidence of Salmonella and diarrhea on antibiotics Nutrition: Advance diet as tolerated Renal: Acute on chronic kidney damage nephrology following creatinine is trending in the right direction UOP Monitored, Cont to Trend sCr and monitor Electrolytes. ID: Patient has evidence of Escherichia coli uti.and Salmonella she is on ciprofloxacin at this time which is appropriate as far as coverage is concerned total duration likely 10-14 days. Afebrile and white count is normalized Heme/Onc: She is on a heparin infusion H&H and platelets are stable she does have evidence of chronic anemia which is likely secondary to her chronic kidney disease Endo: Glucose Monitored and acceptable TSH and cortisol are within normal limits Integ/MSK: Skin Care per routine ICU Nursing Protocol to prevent ulcers. Lines: All lines examined without evidence of infection : Dispo: She is stable for transfer out of ICU to [facility] telemetry for ongoing care CODE: DNAR/DNI overall prognosis is poor given multiple medical comorbid conditions we will have a formal palliative care consultation today Qualifiers: Hypotension type: hypotension due to hypovolemia Qualified Code(s): I95.89 - Other hypotension; E86.1 - Hypovolemia (2) Elevated troponin Current Visit: No Status: Acute (3) CAD (coronary artery disease) Current Visit: No Status: Chronic Qualifiers: Coronary Disease-Associated Artery/Lesion type: bypass graft [place] vs. transplanted heart: [place] heart Associated angina: without angina Qualified Code(s): I25.810 - Atherosclerosis of coronary artery bypass graft(s) without angina pectoris (4) Bradycardia Current Visit: No Status: Acute (5) [id number] kidney injury Current Visit: Yes Status: Acute Qualifiers: Acute renal failure type: unspecified Chronic kidney disease stage: unspecified stage Qualified Code(s): N17.9 - Acute kidney failure, unspecified ; N18.9 - Chronic kidney disease, unspecified (6) NSTEMI (non-ST elevation myocardial infarction) Current Visit: No Status: Acute (7) Acute decompensated heart failure Current Visit: No Status: Acute (8) UTI (urinary tract infection) Current Visit: Yes Status: Acute Qualifiers: Urinary tract infection type: catheter-associated UTI Indwelling urinary catheter type: indwelling urethral catheter Encounter type: initial encounter Qualified Code(s): T83.511A - Infection and inflammatory reaction due to indwelling urethral catheter, initial encounter; N39.0 - Urinary tract infection , site not specified (9) Salmonella Current Visit: Yes Status: Acute (10) Hypothyroidism Current Visit: Yes Status: Acute Qualifiers: Hypothyroidism type: unspecified Qualified Code(s): E03.9 - Hypothyroidism , unspecified Subjective Principal diagnosis: UTI Interval history: Patient has done well overnight she is remains off vasopressor denies any complaints this morning. Urine output has been acceptable. She reports being comfortable Objective PUL Vital signs: Last Vital Signs Temp 97.5 F L 04/08/18 09:34 Pulse 76 04/08/18 09:00 Resp 16 04/08/18 09:00 BP 100/57 04/08/18 09:00 Pulse Ox 95 04/08/18 09:00 General appearance: no acute distress Eyes: nonicteric ENT: oropharynx moist Neck: supple Effort: normal Auscultation: bilateral: diminished breath sounds, rales Cardiovascular: regular rate and rhythm Gastrointestinal: normoactive bowel sounds, soft, non-tender Integumentary: other (No no evidence of rash or worsening ecchymotic changes) Extremities: edema (Bilateral pitting edema) Results - Laboratory Findings CBC and BMP: 04/08/18 03:18 04/08/18 03:18 ABG ABG pH 7.30 pH Units (7.32-7.45) L 04/07/18 04:50 ABG pCO2 44 mmHg (35-45) 04/07/18 04:50 ABG pO2 75 mmHg (85-104) L 04/07/18 04:50 ABG O2 Saturation 93 % (95-98) L 04/07/18 04:50 PT/INR, D-dimer PT 11.2 Seconds (9.4-12.1) 04/06/18 15:13 Abnormal lab findings: Abnormal lab results RBC 2.66 M/mcL (3.82-4.97) L 04/08/18 03:18 Hgb 7.6 g/dL (11.5-15.4) L 04/08/18 03:18 Hct 24.5 % (35.3-44.9) L 04/08/18 03:18 MCHC 31.0 g/dL (31.6-35.5) L 04/08/18 03:18 RDW 15.7 % (11.5-14.5) H 04/08/18 03:18 ABG pH 7.30 pH Units (7.32-7.45) L 04/07/18 04:50 ABG pO2 75 mmHg (85-104) L 04/07/18 04:50 ABG O2 Saturation 93 % (95-98) L 04/07/18 04:50 ABG Base Excess -5 mEq/L (-2 to 3) L 04/07/18 04:50 Sodium 131 mEq/L (136-145) L 04/08/18 03:18 Carbon Dioxide 20 mEq/L (23-29) L 04/08/18 03:18 BUN 94 mg/dL (8-23) H 04/08/18 03:18 Creatinine 4.86 mg/dL (0.60-1.20) H 04/08/18 03:18 Est GFR ( Amer) 10 (> 60) L 04/08/18 03:18 Est GFR (Non-Af Amer) 9 (> 60) L 04/08/18 03:18 Glucose 108 mg/dL (70-105) H 04/08/18 03:18 POC Glucose 143 mg/dL (70-99) H 04/08/18 07:32 Calculated Osmolality 302 (280-300) H 04/08/18 03:18 Uric Acid 8.5 mg/dL (2.3-7.6) H 04/06/18 05:15 Calcium 7.9 mg/dL (8.6-10.3) L 04/08/18 03:18 Phosphorus 6.5 mg/dL (2.7-4.5) H 04/08/18 03:18 Creatine Kinase 342 Units/L (30-223) H 04/06/18 05:15 Troponin I 6.53 ng/mL (< 0.04) H* 04/07/18 04:00 Albumin 2.6 g/dL (3.5-5.7) L 04/07/18 04:00 Albumin/Globulin Ratio 1.0 (1.1-2.2) L 04/03/18 04:05 Urine Clarity Turbid (Clear) A 04/07/18 11:20 Urine Protein 100 mg/dL (Neg-Trace) H 04/07/18 11:20 Urine Blood Small (Negative) H 04/07/18 11:20 Urine Bilirubin Moderate (Negative) H 04/07/18 11:20 Ur Leukocyte Esterase Large (Negative) H 04/07/18 11:20 Urine Microscopic RBC 3-5 per hpf (0-3) H 04/07/18 11:20 Urine Microscopic WBC TNTC per hpf (0-3) H 04/07/18 11:20 Ur Squamous Epith Cells Many per lpf (None-Few) H 04/07/18 11:20 Amorphous Sediment Moderate (Few) H 04/03/18 05:37 Urine Mucus Many (Few) H 04/03/18 05:37 Urine Yeast Many per hpf (None Seen) H 04/07/18 11:20 Ur Culture Indicated? NO. (NO) A 04/06/18 13:55 Stool Salmonella PCR DETECTED (Not detect) A* 04/06/18 13:12 - Clinical Findings Intake & Output: Intake & Output 04/07/18 04/08/18 04/08/18 23:59 07:59 15:59 Intake Total 1604 / 1604 300 / 300 Output Total 25 / 25 175 / 175 0 / 0 Balance 1579 / 1579 125 / 125 0 / 0 Weight 82.3 kg Consult Discharge Plan - Plan Referrals: Casi Smalls, SENIOR LIBRARIAN [Primary Care Provider] -
--- NOTE | 2018-04-08 11:43 | Nephrology Progress Note ---
Date of Encounter: 04/08/18 Time of Encounter: 09:35 - Assessment and Plan (1) GABY (acute kidney injury) Current Visit: Yes Status: Acute Nonoliguric GABY on CKD stage IV. As discussed with the ICU team, I agree with Palliative Care discussion, re: goals of care. She is not urgently needing HD today, but may need it soon, only if dialysis is part of her goals of care. Hyponatremia: roughly stable, suspect hypervolemic hyponatremia. D/t the GABY, I would not yet diuresis her. Will monitor. Anemia, likely multifactorial. Goal Hgb is 10-11 in the setting of CKD, and I will assess for CECILIO and/or IV iron, but transfusion parameters as per primary. Hyperphospatemia with hypocalcemia, which is a common pattern seen in advanced stages of CKD. Recommend renal diet. Will need to trend the serum Phos. Will continue to follow with you, but in the meantime, continue to adhere to a renal protective/supportive strategy. Thank you. (2) CKD (chronic kidney disease) stage 4, GFR 15-29 ml/min Current Visit: Yes Status: Chronic Baseline GFR up to 20s (3) Hyponatremia Current Visit: Yes Status: Acute See above (4) Hyperphosphatemia Current Visit: Yes Status: Acute See above (5) Anemia Current Visit: Yes Status: Chronic See above Qualifiers: Anemia type: due to chronic kidney disease Chronic kidney disease stage: stage 4 (severe) Qualified Code(s): N18.4 - Chronic kidney disease, stage 4 ( severe); D63.1 - Anemia in chronic kidney disease Subjective Principal diagnosis: UTI Interval history: The pt was seen/examined in the ICU earlier today. She did not affirm N/V/D and voiced that she wants to go home. I reviewed the hand-off notes from my colleague Dr. Real, plus labs, vitals, imaging, progress notes and med lists. Objective - Vital Signs Vital signs: Vital Signs Temp Pulse Resp BP Pulse Ox 04/08/18 11:00 96.1 F L 68 18 87/70 97 04/08/18 10:00 75 18 99/51 92 04/08/18 09:34 97.5 F L 04/08/18 09:00 76 16 100/57 95 04/08/18 08:00 84 16 115/62 97 04/08/18 07:00 82 16 100/76 97 04/08/18 06:00 81 18 105/62 96 04/08/18 05:28 96.2 F L 04/08/18 05:00 83 18 97/53 95 04/08/18 04:00 80 18 76/55 91 04/08/18 03:20 77 04/08/18 03:00 78 18 91/77 96 04/08/18 02:00 77 18 91/75 99 04/08/18 01:00 76 18 108/61 92 04/08/18 00:15 73 04/08/18 00:00 76 18 98/62 91 04/07/18 23:50 96.0 F L 04/07/18 23:00 73 18 100/47 90 04/07/18 22:00 71 18 108/66 92 04/07/18 21:00 70 18 100/68 93 04/07/18 20:29 96.1 F L 04/07/18 20:00 72 18 118/67 93 04/07/18 19:00 69 18 120/63 94 04/07/18 18:00 68 18 98/50 96 04/07/18 17:00 54 18 86/46 97 04/07/18 16:00 56 18 86/49 96 04/07/18 15:00 96.2 F L 61 18 94/57 96 04/07/18 14:00 64 16 99/51 94 04/07/18 13:00 62 18 84/44 95 04/07/18 12:00 65 18 97/44 97 Intake and Output 04/07/18 04/08/18 04/08/18 23:59 07:59 15:59 Intake Total 1604 / 1604 300 / 300 Output Total 25 / 25 175 / 175 0 / 0 Balance 1579 / 1579 125 / 125 0 / 0 Intake: IV Fluids 1604 / 1604 300 / 300 0.9 % Sodium Chloride 1,000 ML 1000 / 1000 @ 75 mls/hr IVC .[id number] [facility] Rx #:[id number] Heparin 25,000 UNIT/500 ML D5W 140 / 140 63 / 63 25,000 unit In 500 ml @ 14 UNIT /KG/HR 20.72 mls/hr IVC .Q24H [facility] Rx#:[id number] Levophed 4 MG In Dextrose 5% 264 / 264 37 / 37 250 ML @ 10 MCG/MIN 38.1 mls/hr IVC CONT [facility] Rx#:[id number] Cipro Premix 400 MG/200 ML 400 200 / 200 200 / 200 mg In 200 ml @ 200 mls/hr IVPB Q18H [facility] Rx#:[id number] Output: Catheter 25 / 25 175 / 175 0 / 0 Other: Weight 82.3 kg Blood Glucose* 157 84 - General Appearance General appearance: Present: well-developed, appears started age, fatigue, frail EENT: Present: ATNC, PERRL, mucous membranes moist Neck: Present: supple Respiratory: Present: clear Cardiology: Present: edema (trace ankle nonpitting with wrinkles noted b/l), regular rate, normal S1, normal S2 Gastrointestinal: Present: normoactive bowel sounds, no tenderness, no guarding Integumentary: Present: warm and dry Neurologic: Present: no focal deficit, no asterixis, disoriented Musculoskeletal: Present: no erythema, no cyanosis, no clubbing Psychiatric: Present: mood/affect appropriate, cooperative - Lab 04/09/18 03:47 04/09/18 03:47 Most recent lab results ABG pH 7.30 pH Units (7.32-7.45) L 04/07/18 04:50 ABG pCO2 44 mmHg (35-45) 04/07/18 04:50 ABG pO2 75 mmHg (85-104) L 04/07/18 04:50 ABG HCO3 22 mEq/L (21-27) 04/07/18 04:50 ABG O2 Saturation 93 % (95-98) L 04/07/18 04:50 Calcium 7.9 mg/dL (8.6-10.3) L 04/08/18 03:18 Phosphorus 6.5 mg/dL (2.7-4.5) H 04/08/18 03:18 Magnesium 1.7 mg/dL (1.6-2.6) 04/08/18 03:18 Urine Sodium 29.1 mEq/L 04/07/18 11:20 - Imaging Kidney/bladder ultrasound: report reviewed (No hydronephrosis.) Consult Discharge Plan - Plan Referrals: Casi Smalls, DOCUMENTATION SPECIALIST [Primary Care Provider] -
--- NOTE | 2018-04-08 11:51 | Palliative - Consult Note ---
Date of Encounter: 04/08/18 Time of Encounter: 10:30 - Assessment and Plan (1) Goals of care, counseling/discussion Current Visit: Yes Status: Acute Assessment and plan: Discussed at first with pt alone. Patient is confused at times and cannot fully comprehend the extent of the explanations. However, she stated that she did not want to be resuscitated or intubated, and would not want any measures that will not improve her health. Met with Pt's daughters Katelyn and Julio, and son-in-law. Explained current medical conditions, trajectory of illness, treatment options and overall poor prognosis. Family is aware of pt's wishes to avoid life prolonging measures, if they will not improve her overall health. Discussed that pt has poor kidney function at this time and might need HD if no significant improvement. Family is against any terminal superintendent hemodialysis, but will consider a short term dialysis if there was a hope that kidney function will improve. Discussed hospice care and services, family will consider hospice, depending on pt's new baseline once stable. Per family, the goal is for pt to remain on her current level of care with a DNRCCA/DNI, hoping for some improvement. They would like the pt then to return home, and will consider hospice care if pt deteriorates or cannot return to baseline. (2) Lower extremity pain Current Visit: Yes Status: Chronic Assessment and plan: Pain and tenderness of the feet, on a stocking distribution, sharp pain, present on palpation or movement. Patient states she was on gabapentin for pain, she does not want pain pills as they make her drowsy, but will agree with Tylenol. Gabapentin reduced to 100mg once due to reduced renal function start Acetaminophen 650 mg q6hrs Qualifiers: Laterality: bilateral Qualified Code(s): M79.604 - Pain in right leg; M79.605 - Pain in left leg (3) [id number] kidney injury Current Visit: Yes Status: Acute Assessment and plan: Nephrology following some improvement on creatinine today, but renal output remains low. Qualifiers: Acute renal failure type: unspecified Chronic kidney disease stage: unspecified stage Qualified Code(s): N17.9 - Acute kidney failure, unspecified ; N18.9 - Chronic kidney disease, unspecified (4) UTI (urinary tract infection) Current Visit: No Status: Acute Assessment and plan: UCX growing ecoli. ABX changed to rocephin Qualifiers: Urinary tract infection type: acute cystitis Hematuria presence: with hematuria Qualified Code(s): N30.01 - Acute cystitis with hematuria (5) NSTEMI (non-ST elevation myocardial infarction) Current Visit: No Status: Acute Assessment and plan: Cardiology on the case Management per primary team (6) Salmonella Current Visit: Yes Status: Acute Assessment and plan: No more diarrhea on ABX management per primary team Palliative-CN HPI - Data of Consult Patient: new to practice Consult date: 04/08/18 Requesting Physician: Philip Manuel MD Primary Care Provider: Casi Smalls CNP - Consult Narrative Palliative Care/Comfort Measures: Palliative care Reason for consult: Goals of care History of present illness: Ms. Pickett is a 83 year old female with PMH of CAD with hx of CABG, DM, CKD stage IV, HTN was admitted on 04/03/2018 after initial evaluation for hypoglycemia, diarrhea, feeling unwell/weak. Subsequently found to have UTI and stool studies positive for Salmonella. Pt then found to be lethargic with bradycardia and hypotension. Rapid response was called, pt was admitted to MICU and started on norepinephrine, HR 70s. At the time of exam today 11:00 am, Pt confused. Denies chest pain or dyspnea. No family at the bedside. At 12:30 am, met with family (daughter Julio and Katelyn, and son in law) at the bedside. CC: Philip Manuel MD - Time Spent with Patient Time: Total time spent is greater than 50% in coordination of care, face to face with pt and family (as documented) at patient's floor/unit and/or counseling patient: Greater than 70 minutes Past Med Surg Social Fam HX - Past Medical History Medical history: cancer, coronary artery disease, diabetes, hypertension, myocardial infarction, renal disease Additional medical history: Gout Psychiatric history: no psych history - Past Surgical History Surgical History: cancer surgery, coronary bypass (CABG) - Social History Smoking Status: Former smoker Smokeless Tobacco Status: No Alcohol use: none Drug use: none Medications and Allergies Clopidogrel [Plavix] 75 mg PO DAILY 07/03/16 [History] Diltiazem HCl [Diltiazem ER] 120 mg PO DAILY 07/03/16 [History] Gabapentin [Neurontin] 100 mg PO BID 07/03/16 [History] Levothyroxine [Synthroid] 25 mcg PO 0630 07/03/16 [History] Metoprolol [Lopressor] 50 mg PO BID 07/03/16 [History] Timolol Maleate 0.25% 1 drop RIGHT EYE BID 07/03/16 [History] Ubidecarenone/Vitamin E [Co Q-10 50 mg Softgel] 1 tab PO DAILY 07/03/16 [History ] Insulin DETEMIR [Levemir] 40 units SQ DAILY 01/01/18 [History] Lisinopril 2.5 mg PO DAILY 01/01/18 [History] Aspirin Enteric Coated [Aspirin EC] 81 mg PO DAILY #30 tablet. 01/10/18 [Rx] Atorvastatin [Lipitor] 40 mg PO HS #30 tablet 01/10/18 [Rx] Furosemide [Lasix] 40 mg PO DAILY #30 tablet 01/10/18 [Rx] Sodium Bicarbonate 650 mg PO BID #30 tablet 01/10/18 [Rx] 3 Allergy/AdvReac Type Severity Reaction Status Date / Time No Known Allergies Allergy Verified 01/01/18 15:34 Palliative Care-Exam - Constitutional Vitals: Temp Pulse Resp BP Pulse Ox 96.1 F L 68 18 87/70 97 04/08/18 11:00 04/08/18 11:00 04/08/18 11:00 04/08/18 11:00 04/08/18 11:00 Exam: General: AAO x3, No Apparent Distress HEENT: Atraumatic, Normocephaly, Mucus Membranes Moist Neck: No JVD, Normal carotid pulses Cardiac: Reg Rate and Rhythm, Normal S1 and S2, No Murmur Lungs: Normal Breath Sounds, No Wheeze, Rales, Rhonchi Neuro: Alert and responsive, orieted x3 (confused at times) Abdomen: Soft, Non-Tender Skin: No rashes noted on visualized skin Musculoskeletal: bilateral knee pain, tenderness on palpation and movement of feet Extremities: Other (1+ BLE edema) Internal Medicine - CN: Reslt - Labs CBC & Chem 7: 04/08/18 03:18 04/08/18 03:18 Labs: Short CBC 04/08/18 Range/Units 03:18 WBC 7.8 (4.3-11.1) K/mcL Hgb 7.6 L (11.5-15.4) g/dL Hct 24.5 L (35.3-44.9) % Plt Count 271 (140-400) K/mcL Neutrophils # 5.6 (1.6-8.9) K/mcL BMP 04/08/18 03:18 Sodium 131 L Potassium 4.3 Chloride 100 Carbon Dioxide 20 L BUN 94 H Creatinine 4.86 H Glucose 108 H Calcium 7.9 L Urine 04/07/18 Range/Units 11:20 Urine Color Dark Yellow (Yellow) Urine Clarity Turbid A (Clear) Urine pH 5.0 (5.0-8.0) pH Units Ur Specific [place] 1.016 (1.010-1.025) Urine Protein 100 H (Neg-Trace) mg/dL Urine Glucose (UA) Normal (Normal) mg/dL - ABG Interpretation ABG results: ABG ABG pH 7.30 pH Units (7.32-7.45) L 04/07/18 04:50 ABG pCO2 44 mmHg (35-45) 04/07/18 04:50 ABG pO2 75 mmHg (85-104) L 04/07/18 04:50 ABG O2 Saturation 93 % (95-98) L 04/07/18 04:50 PT/INR, D-dimer PT 11.2 Seconds (9.4-12.1) 04/06/18 15:13 Consult Discharge Plan - Plan Referrals: Casi Smalls, C[employer]S PUMP TENDER [Primary Care Provider] - Palliative Quality Palliative Quality: Screen for Code Status: Yes, Screen for Goals of Care: Yes, Screen for Pain: Yes, If Pain Regimen Started, Initiate Bowel Regimen: Yes, Screen for Nausea/Vomitting: Yes Code Status: 04/06/18 19:43 CODE [Resuscitation Status: Active] [RES] Stat Comment: Resuscitation Status: [id number]
[2018-04-08] MEDS: 0.9 % Sodium Chloride 1,000 ML IVC SCH (11:54)
[2018-04-08] MEDS ORDERED: cefTRIAXone 1,000 MG in Water for inj. (sterile) 20 ML 10 ML IVP SCH (12:00)
--- NOTE | 2018-04-08 13:37 | Cardiology Consult Note ---
<Tanvir Alston Dre - Last Filed: 04/08/18 13:55> Date of Encounter: 04/08/18 Time of Encounter: 13:30 Assessment and Plan (1) NSTEMI (non-ST elevation myocardial infarction) Current Visit: No Status: Acute Troponin 9.42, 6.53--downtrending. NSTEMI in setting of UTI, stool positive for salmonella, GABY on CKD stage IV. Creatinine 4.86. Chronic anemia, HGB 7.6. On heparin gtt started evening of 04/06/18. Continue for 48 hours, then can stop. Was bradycardic, now resolved. Hypotensive on norepinephrine--systolic BP 90s. Nephrology and Palliative consulted. Pt currently DNR-CCA-DNI. Goals/possible dialysis still to be determined. Limited TTE obtained--EF preserved with normal wall motion. Conservative approach given her poor prognosis/code status. Continue ASA, Plavix, Statin. No BB due to hypotension. Will discuss and review with Dr. Taylor. Anticipate sign off once seen and evaluated by him. (2) CAD (coronary artery disease) Current Visit: No Status: Chronic Hx of CABG in the remote past. As above, EF preserved on TTE. Continue ASA, Plavix, Statin. No BB due to hypotension. Qualifiers: Coronary Disease-Associated Artery/Lesion type: bypass graft [place] vs. transplanted heart: [place] heart Associated angina: without angina Qualified Code(s): I25.810 - Atherosclerosis of coronary artery bypass graft(s) without angina pectoris Discussion w patient/family: The assessment and plan as outlined above was discussed with the patient and/or family members who expressed understanding and agreement. All questions were answered. Thank you for involving us in the care of your patient. Please call with any questions. I will discuss all the above with Dr. Taylor and make changes as necessary. History of Present Illness Consult date: 04/08/18 Consult reason: NSTEMI Chief complaint: weakness History of present illness: Ms. Pickett is a 83 year old female with PMH of CAD with hx of CABG, DM, CKD stage IV, HTN was admitted on 04/03/2018 after initial evaluation for hypoglycemia, diarrhea, feeling unwell/weak. Subsequently found to have UTI and stool studies positive for Salmonella. Pt then found to be lethargic with bradycardia and hypotension. Patient is on norepinephrine, HR 70s at bedside. Pt confused. Denies chest pain or dyspnea. Reports 1 month of LE edema. No family at bedside. Nephrology on board, GABY on Stage IV CKD and palliative consulted to discuss goals of care. Troponins 9.42, 6.53. Cardiology consulted for further recs. Prior CV testing: Limited TTE 04/06/18:Technically sub-optimal due to poor echocardiographic windows. LVEF 60%. Normal LV chamber size, wall thickness and function. Atypical septal motion consistent with bundle branch block. Pleural effusion noted. Past Med Surg Social Fam HX - Past Medical History Medical history: cancer, coronary artery disease, diabetes, hypertension, myocardial infarction, renal disease Additional medical history: Gout Psychiatric history: no psych history - Past Surgical History Surgical History: cancer surgery, coronary bypass (CABG) - Social History Smoking Status: Former smoker Smokeless Tobacco Status: No Alcohol use: none Drug use: none Medications and Allergies Clopidogrel [Plavix] 75 mg PO DAILY 07/03/16 [History] Diltiazem HCl [Diltiazem ER] 120 mg PO DAILY 07/03/16 [History] Gabapentin [Neurontin] 100 mg PO BID 07/03/16 [History] Levothyroxine [Synthroid] 25 mcg PO 0630 07/03/16 [History] Metoprolol [Lopressor] 50 mg PO BID 07/03/16 [History] Timolol Maleate 0.25% 1 drop RIGHT EYE BID 07/03/16 [History] Ubidecarenone/Vitamin E [Co Q-10 50 mg Softgel] 1 tab PO DAILY 07/03/16 [History ] Insulin DETEMIR [Levemir] 40 units SQ DAILY 01/01/18 [History] Lisinopril 2.5 mg PO DAILY 01/01/18 [History] Aspirin Enteric Coated [Aspirin EC] 81 mg PO DAILY #30 tablet. 01/10/18 [Rx] Atorvastatin [Lipitor] 40 mg PO HS #30 tablet 01/10/18 [Rx] Furosemide [Lasix] 40 mg PO DAILY #30 tablet 01/10/18 [Rx] Sodium Bicarbonate 650 mg PO BID #30 tablet 01/10/18 [Rx] 3 Allergy/AdvReac Type Severity Reaction Status Date / Time No Known Allergies Allergy Verified 01/01/18 15:34 All Systems Review: The remainder of the systems were reviewed and are negative - Constitutional Constitutional: weakness - Cardiovascular Cardiovascular: leg edema Physical Examination Vital Signs, Last 4 Hours Temp Pulse Resp BP Pulse Ox 04/08/18 12:00 74 16 95/57 100 04/08/18 11:58 76 04/08/18 11:00 96.1 F L 68 18 87/70 97 04/08/18 10:00 75 18 99/51 92 04/08/18 09:34 97.5 F L Vital Signs Temp Pulse Resp BP Pulse Ox 04/08/18 12:00 74 16 95/57 100 04/08/18 11:58 76 04/08/18 11:00 96.1 F L 68 18 87/70 97 04/08/18 10:00 75 18 99/51 92 04/08/18 09:34 97.5 F L 04/08/18 09:00 76 16 100/57 95 04/08/18 08:00 84 16 115/62 97 04/08/18 07:00 82 16 100/76 97 04/08/18 06:00 81 18 105/62 96 04/08/18 05:28 96.2 F L 04/08/18 05:00 83 18 97/53 95 04/08/18 04:00 80 18 76/55 91 04/08/18 03:20 77 04/08/18 03:00 78 18 91/77 96 04/08/18 02:00 77 18 91/75 99 04/08/18 01:00 76 18 108/61 92 04/08/18 00:15 73 04/08/18 00:00 76 18 98/62 91 04/07/18 23:50 96.0 F L 04/07/18 23:00 73 18 100/47 90 04/07/18 22:00 71 18 108/66 92 04/07/18 21:00 70 18 100/68 93 04/07/18 20:29 96.1 F L 04/07/18 20:00 72 18 118/67 93 04/07/18 19:00 69 18 120/63 94 04/07/18 18:00 68 18 98/50 96 04/07/18 17:00 54 18 86/46 97 04/07/18 16:00 56 18 86/49 96 04/07/18 15:00 96.2 F L 61 18 94/57 96 04/07/18 14:00 64 16 99/51 94 Intake and Output 04/07/18 04/08/18 04/08/18 23:59 07:59 15:59 Intake Total 1604 / 1604 300 / 300 1000 / 1000 Output Total 25 / 25 175 / 175 0 / 0 Balance 1579 / 1579 125 / 125 1000 / 1000 Intake: IV Fluids 1604 / 1604 300 / 300 1000 / 1000 0.9 % Sodium Chloride 1,000 ML 1000 / 1000 1000 / 1000 @ 75 mls/hr IVC .[id number] [facility] Rx #:[id number] Heparin 25,000 UNIT/500 ML D5W 140 / 140 63 / 63 25,000 unit In 500 ml @ 14 UNIT /KG/HR 20.72 mls/hr IVC .Q24H [facility] Rx#:[id number] Levophed 4 MG In Dextrose 5% 264 / 264 37 / 37 250 ML @ 10 MCG/MIN 38.1 mls/hr IVC CONT [facility] Rx#:[id number] Cipro Premix 400 MG/200 ML 400 200 / 200 200 / 200 mg In 200 ml @ 200 mls/hr IVPB Q18H [facility] Rx#:[id number] Output: Catheter 175 / 175 0 / 0 Other: Weight 82.3 kg Blood Glucose* 157 84 General: Conversant, No Apparent Distress HEENT: Atraumatic, Normocephaly, Mucus Membranes Moist Neck: No JVD, Normal carotid pulses Cardiac: Reg Rate and Rhythm, Normal S1 and S2, No Murmur Lungs: Normal Breath Sounds, No Wheeze, Rales, Rhonchi Neuro: Alert and responsive, Other (confused at times) Abdomen: Soft, Non-Tender Skin: No rashes noted on visualized skin Musculoskeletal: No Chest Wall Tenderness Extremities: Other (1+ BLE edema) Results 04/08/18 03:18 04/08/18 03:18 Lab Results 04/08/18 04/08/18 03:18 03:18 WBC 7.8 Hgb 7.6 L Hct 24.5 L Plt Count 271 Sodium 131 L Potassium 4.3 Chloride 100 Carbon Dioxide 20 L BUN 94 H Creatinine 4.86 H Glucose 108 H Calcium 7.9 L Magnesium 1.7 Short CBC 04/08/18 Range/Units 03:18 WBC 7.8 (4.3-11.1) K/mcL Hgb 7.6 L (11.5-15.4) g/dL Hct 24.5 L (35.3-44.9) % Plt Count 271 (140-400) K/mcL Neutrophils # 5.6 (1.6-8.9) K/mcL BMP 04/08/18 Range/Units 03:18 Sodium 131 L (136-145) mEq/L Potassium 4.3 (3.5-5.1) mEq/L Chloride 100 (98-107) mEq/L Carbon Dioxide 20 L (23-29) mEq/L BUN 94 H (8-23) mg/dL Creatinine 4.86 H (0.60-1.20) mg/dL Glucose 108 H (70-105) mg/dL Calcium 7.9 L (8.6-10.3) mg/dL Active Medications Hydrocodone Bitart/Acetaminophen ([place] 5-325 Mg) 1 tab PO Q6HR PRN PRN Reason: Pain Stop: 10/04/18 16:10 Last Admin: 04/04/18 17:30 Dose: 1 tab Albuterol/Ipratropium (Duoneb) 3 ml IH [id number] PRN PRN Reason: Shortness Of Breath/Wheezing Stop: 10/07/18 05:54 Aspirin (Aspirin Ec) 81 mg PO DAILY [facility] Stop: 10/04/18 09:01 Last Admin: 04/08/18 07:59 Dose: 81 mg Atorvastatin Calcium (Lipitor) 40 mg PO HS [facility] Stop: 10/03/18 21:01 Last Admin: 04/07/18 20:16 Dose: 40 mg Clopidogrel Bisulfate (Plavix) 75 mg PO DAILY [facility] Stop: 10/03/18 09:16 Last Admin: 04/08/18 07:59 Dose: 75 mg Dextrose/Water (Dextrose 50% (Syg)) 25 ml IVP AD PRN PRN Reason: Hypoglycemia Stop: 10/03/18 07:32 Gabapentin (Neurontin) 100 mg PO DAILY [facility] Stop: 10/03/18 21:01 Glucagon (Glucagen) 1 mg IM ONCE PRN PRN Reason: Hypoglycemia Stop: 10/03/18 07:32 Glucose (Gluctose) 15 gm PO ONCE PRN PRN Reason: Hypoglycemia Stop: 10/03/18 07:32 Glucose (Gluctose) 30 gm PO ONCE PRN PRN Reason: Hypoglycemia Stop: 10/03/18 07:32 Heparin Sodium (Porcine) (Heparin) 5,200 unit 70 unit/kg (5200 unit) IVP Q6HR PRN PRN Reason: SEE COMMENTS Stop: 10/06/18 16:05 Heparin Sodium (Porcine) (Heparin) 2,600 unit 35 unit/kg (2600 unit) IVP Q6H PRN PRN Reason: SEE COMMENTS Stop: 10/06/18 16:05 Dextrose (Dextrose 5%) 1,000 mls @ 100 mls/hr IVC .Q10H PRN PRN Reason: HYPOGLYCEMIA Stop: 10/03/18 07:32 Sodium Chloride (0.9 % Sodium Chloride) 1,000 mls @ 75 mls/hr IVC .[id number] [facility] Stop: 10/06/18 10:46 Last Admin: 04/08/18 11:54 Dose: 75 mls/hr Heparin Sodium/Dextrose (Heparin 25,000 Unit/500 Ml D5w) 25,000 unit in 500 mls @ 20.72 mls/hr IVC .Q24H [facility]LY; 14 UNIT/KG/HR PRN Reason: Protocol Stop: 10/06/18 16:16 Last Admin: 04/08/18 05:30 Dose: 9 unit/kg/hr, 13.32 mls/hr Norepinephrine Bitartrate 4 mg (/ Dextrose) 254 mls @ 38.1 mls/hr IVC CONT [facility] ; 10 MCG/MIN PRN Reason: Protocol Stop: 10/07/18 02:46 Last Titration: 04/08/18 06:13 Dose: 0 mcg/min, 0 mls/hr Ceftriaxone Sodium 1,000 mg/ (Sterile Water) 10 mls @ 600 mls/hr IVP Q24H [facility] Stop: 10/08/18 12:01 Last Admin: 04/08/18 11:53 Dose: 600 mls/hr Insulin Detemir (Levemir) 5 unit SQ HS [facility] Stop: 10/06/18 21:01 Last Admin: 04/07/18 20:17 Dose: 5 unit Insulin Human Lispro (Humalog) 0 units SQ HS [facility] PRN Reason: Protocol Stop: 10/03/18 21:01 Last Admin: 04/07/18 20:11 Dose: Not Given Insulin Human Lispro (Humalog) 0 units SQ TIDAC [facility]LY PRN Reason: Protocol Stop: 10/03/18 11:31 Last Admin: 04/08/18 11:18 Dose: Not Given Levothyroxine Sodium (Synthroid) 25 mcg PO 0630 [facility] Stop: 10/04/18 06:31 Last Admin: 04/08/18 05:38 Dose: 25 mcg Naloxone HCl (Narcan) 0.4 mg IVP Q2MIN PRN PRN Reason: SEE COMMENTS Stop: 10/03/18 07:52 Sodium Bicarbonate (Sodium Bicarbonate) 650 mg PO BID [facility] Stop: 10/03/18 21:01 Last Admin: 04/08/18 07:59 Dose: 650 mg Timolol Maleate (Timolol Maleate 0.25%) 1 drop RIGHT EYE BID [facility] PRN Reason: Protocol Stop: 10/03/18 21:01 Last Admin: 04/08/18 08:00 Dose: 1 drop - Imaging and Cardiology Echo: report reviewed - EKG Interpretation EKG results cardiology: personally reviewed (SR rate 94), other (12 hr tele AVG HR 78, longest pause 3.6 seconds nocturnal) Consult Discharge Plan - Plan Referrals: Casi Smalls, PUMPER GAUGER [Primary Care Provider] - <Obdulio Taylor - Last Filed: 04/10/18 10:35> Date of Encounter: 04/08/18 Time of Encounter: 17:00 - Attending Attestation I have personally performed a face to face evaluation on this patient. I have reviewed and agree with the care plan. History and Exam by me shows: CC: Diaphoresis, nausea, diarrhea Pt admitted with complaints of nausea, diarrhea, weakness and fatigue for over a week, was having difficulty taking fluids and medications. She was found to have a UTI and Salmonella. She became progressively hypotensive and bradycardic , transferred to ICU and started on pressor support for septic shock. She also demonstrated troponin elevations of 9.42 and 6.3 in the setting of acute renal failure. She is confused, hx obtained from medical record. PMH: reviewed ROS: reviewed Labs, Xrays, echo and EKGs reviewed PE: Pt seen and examined, agree with findings as documented IMP/Plan: 1. NSTEMI: no acute EKG changes, echo shows well preserved LV function, in setting of multple organ failure, septic shock reguiring pressor support and acute renal failure, recommend medical tx only. She is not a candidate for invasive strategy with ongoing conversations about code status and possible pallative care. Agree with systemic anticoagulation on heparin x 48 hours, will continue to monitor EKG and troponins 2. Septic Shock: requiring pressor supports, have not been able to start weaning due to continued hemodynamic demands. 3. CAD: distant hx CABG, known three vessel CAD,unknown number or location of bypass grafts. 4. UTI: on IV ab per primary team Recommend continued supportive care, await family discussion about ultimate goals, possible hospice/palative care, not much to add until fci goals are defined. Assessment and Plan Discussion w patient/family: The assessment and plan as outlined above was discussed with the patient and/or family members who expressed understanding and agreement. All questions were answered. Thank you for involving us in the care of your patient. Please call with any questions. History of Present Illness History of present illness: Ms. Pickett is a 83 year old female All Systems Review: The remainder of the systems were reviewed and are negative Physical Examination Vital Signs, Last 4 Hours Temp Pulse Resp BP Pulse Ox 04/10/18 07:07 97.3 F L 90 18 100/52 91 Results 04/10/18 07:37 04/10/18 04:31 Lab Results 04/10/18 04/10/18 04:31 07:37 WBC 9.8 Hgb 8.4 L Hct 28.0 L Plt Count 327 Sodium 130 L Potassium 5.1 Chloride 99 Carbon Dioxide 11 L BUN 105 H Creatinine 5.12 H Glucose 124 H Calcium 8.4 L Magnesium 1.9
[2018-04-08] MEDS ORDERED: Acetaminophen 325 MG TABLET PO SCH (18:00)
[2018-04-08] MEDS: Insulin DETEMIR 100 UNIT/ML X5UNITS SQ SCH (20:04)
[2018-04-08] MEDS ORDERED: D5% in Water 1,000 ML IVC PRN (20:09)
[2018-04-08] MEDS ORDERED: *HR* Dextrose 50 % in Water (Syg) 50 ML SYRINGE IVP PRN (20:09)
[2018-04-08] MEDS ORDERED: Dextrose Gel 15 GM/37.5 ML TUBE PO PRN ×2 (20:09)
[2018-04-08] MEDS ORDERED: *HR* Heparin 5,000 UNIT/ML VIAL IVP PRN ×2 (20:09)
[2018-04-08] MEDS ORDERED: Heparin 25,000 UNIT/500 ML D5W 25,000 UNIT/500 ML BAG IVC SCH (20:09)
[2018-04-08] MEDS ORDERED: Ipratropium/Albuterol Neb 3 ML IH PRN (20:09)
[2018-04-08] MEDS ORDERED: Naloxone 0.4 MG/ML INJ IVP PRN (20:09)
[2018-04-08] MEDS ORDERED: Insulin DETEMIR 100 UNIT/ML X5UNITS SQ SCH (21:00)
[2018-04-08] MEDS ORDERED: Insulin LISPRO 300 UNITS/3 ML VIAL SQ SCH (21:00)
[2018-04-09] MEDS: Acetaminophen 325 MG TABLET PO SCH ×3 (00:45→12:35)
[2018-04-09 03:59] LABS: Basophils % 0.2 %; Eosinophils # 0.1 K/mcL (0.0-0.6); Eosinophils % 0.5 %; Hematocrit 27.2 % (35.3-44.9); Hemoglobin 8.5 g/dL (11.5-15.4); Immature Granulocytes % 2.2 % (0-4); Lymphocytes # 0.6 K/mcL (0.6-4.6); Lymphocytes % 6.9 %; Mean Corpuscular HGB Conc 31.3 g/dL (31.6-35.5); Mean Corpuscular Volume 92.8 fL (83.0-100.0); Mean Platelet Volume 10.7 fL (9.4-12.4); Monocytes # 0.9 K/mcL (0.0-1.3); Monocytes % 10.1 %; Neutrophils # 7.5 K/mcL (1.6-8.9); Platelet Count 303 K/mcL (140-400); Red Blood Count 2.93 M/mcL (3.82-4.97); Red Cell Distribution Width 15.5 % (11.5-14.5); Segmented Neutrophils % 80.1 %
[2018-04-09 04:22] LABS: Albumin 2.5 g/dL (3.5-5.7); Calcium 8.3 mg/dL (8.6-10.3); Phosphorous 7.1 mg/dL (2.7-4.5); Potassium 4.5 mEq/L (3.5-5.1)
[2018-04-09] MEDS ORDERED: Levothyroxine 25 MCG TABLET PO SCH (06:30)
[2018-04-09] MEDS ORDERED: Albumin 25% 25gram/100mL 25 GM/100 ML IV.SOLN IVPB ONE (07:23)
--- NOTE | 2018-04-09 07:25 | Pulmonology Progress Note ---
Date of Encounter: 04/09/18 Time of Encounter: 07:23 Assessment and Plan (1) Hypotension Current Visit: Yes Status: Acute Patient seen and examined at bedside Labs, radiology, chart personally reviewed. Management was reviewed during multidisciplinary critical care rounds. Below reflects my systems based assessment and plan POTTERY DECORATION DESIGNER: The patient is awake and alert no evidence of the focal neurological deficit she is exhibiting features of delirium we will focus on sleep-wake cycle spiritism avoid sensory deprivation and to limit the amount of POTTERY DECORATION DESIGNER altering medications as possible. Pulm: Acute on chronic respiratory failure acceptable oxygenation on 3 L nasal cannula this is secondary to cardiogenic pulmonary edema Cards: Hypotension which is multifactorial including infection NSTEMI and chronic heart failure/cardiorenal syndrome. I appreciate a formal cardiology consultation they are going to pursue a conservative management for non-ST elevation MO we will continue heparin and aspirin further recommendations at this time. Bradycardia has resolved. Blood pressure is still on the lower side we will cautiously reinstitute beta zachery when deemed safe GI: She has evidence of Salmonella and diarrhea which is resolving on antibiotics Nutrition: Advance diet as tolerated Renal: Acute on chronic kidney damage nephrology following. Continues to have oliguria creatinine slightly elevated from previous day's examination hyponatremia consistent with volume overload state intravascularly I suspect patient still may be a little on the dry side would hold off on diuresis will challenge with albumin today I am concerned that the patient will not make a meaningful recovery without the need to institute dialysis especially with worsening mental status however the long-term strategy of dialysis in this patient is very controversial given her multiple medical comorbidities and frail health in general ID: Patient has evidence of Escherichia coli uti.and Salmonella she is ceftriaxone at this time which is appropriate as far as coverage is concerned total duration likely 10-14 days. Afebrile and white count has normalized Heme/Onc: She is on a heparin infusion H&H and platelets are stable she does have evidence of chronic anemia which is likely secondary to her chronic kidney disease Endo: Glucose Monitored and acceptable TSH and cortisol are within normal limits Integ/MSK: Skin Care per routine ICU Nursing Protocol to prevent ulcers. Lines: All lines examined without evidence of infection. Plan to pull right from catheter prior to discharge from the ICU Dispo: She is stable for transfer to stepdown unit for ongoing care CODE: DNAR/DNI overall prognosis is poor given multiple medical comorbid conditions palliative care service currently evaluated the patient yesterday appreciate their recommendations and conversation with the family was very productive with the family has not seen improvement clinically likely consider transitioning to hospice care. Qualifiers: Hypotension type: hypotension due to hypovolemia Qualified Code(s): I95.89 - Other hypotension; E86.1 - Hypovolemia (2) Elevated troponin Current Visit: No Status: Acute (3) CAD (coronary artery disease) Current Visit: No Status: Chronic Qualifiers: Coronary Disease-Associated Artery/Lesion type: bypass graft [place] vs. transplanted heart: [place] heart Associated angina: without angina Qualified Code(s): I25.810 - Atherosclerosis of coronary artery bypass graft(s) without angina pectoris (4) Bradycardia Current Visit: No Status: Acute (5) Udoqv-mz-srgjyxr kidney injury Current Visit: Yes Status: Acute Qualifiers: Acute renal failure type: unspecified Chronic kidney disease stage: unspecified stage Qualified Code(s): N17.9 - Acute kidney failure, unspecified ; N18.9 - Chronic kidney disease, unspecified (6) NSTEMI (non-ST elevation myocardial infarction) Current Visit: No Status: Acute (7) Acute decompensated heart failure Current Visit: No Status: Acute (8) UTI (urinary tract infection) Current Visit: Yes Status: Acute Qualifiers: Urinary tract infection type: catheter-associated UTI Indwelling urinary catheter type: indwelling urethral catheter Encounter type: initial encounter Qualified Code(s): T83.511A - Infection and inflammatory reaction due to indwelling urethral catheter, initial encounter; N39.0 - Urinary tract infection , site not specified (9) Salmonella Current Visit: Yes Status: Acute (10) Hypothyroidism Current Visit: Yes Status: Acute Qualifiers: Hypothyroidism type: unspecified Qualified Code(s): E03.9 - Hypothyroidism , unspecified (11) Delirium Current Visit: Yes Status: Acute Subjective Principal diagnosis: UTI Interval history: The patient has done relatively well in the last 24 hours remains hemodynamically stable off vasopressor support on minimal supplemental oxygen via nasal cannula. She has become increasingly disoriented throughout the course of yesterday and into this morning per the nursing staff this was witnessed on my own examination. Urine output has been marginal at best. Objective PUL Vital signs: Last Vital Signs Temp 97.3 F L 04/09/18 04:11 Pulse 101 04/09/18 06:00 Resp 18 04/09/18 06:00 BP 101/55 04/09/18 06:00 Pulse Ox 93 04/09/18 06:00 General appearance: no acute distress, alert, other (Appears comfortable) Eyes: nonicteric ENT: oropharynx moist Neck: supple, JVD Effort: normal Auscultation: bilateral: diminished breath sounds, wheezes (In the lung bases) Cardiovascular: irregular rhythm Gastrointestinal: normoactive bowel sounds, soft, non-tender Integumentary: normal Extremities: edema (1+ bilateral pitting edema) Musculoskeletal: no deformities non-focal exam, pupils equal and round, other (She is confused as to where she is and cannot name the name of the facility where she is presently located I had to remind her that she is in the hospital in [place].) mood appropriate Results - Laboratory Findings CBC and BMP: 04/09/18 03:47 04/09/18 03:47 ABG ABG pH 7.30 pH Units (7.32-7.45) L 04/07/18 04:50 ABG pCO2 44 mmHg (35-45) 04/07/18 04:50 ABG pO2 75 mmHg (85-104) L 04/07/18 04:50 ABG O2 Saturation 93 % (95-98) L 04/07/18 04:50 PT/INR, D-dimer PT 11.2 Seconds (9.4-12.1) 04/06/18 15:13 Abnormal lab findings: Abnormal lab results RBC 2.93 M/mcL (3.82-4.97) L 04/09/18 03:47 Hgb 8.5 g/dL (11.5-15.4) L 04/09/18 03:47 Hct 27.2 % (35.3-44.9) L 04/09/18 03:47 MCHC 31.3 g/dL (31.6-35.5) L 04/09/18 03:47 RDW 15.5 % (11.5-14.5) H 04/09/18 03:47 ABG pH 7.30 pH Units (7.32-7.45) L 04/07/18 04:50 ABG pO2 75 mmHg (85-104) L 04/07/18 04:50 ABG O2 Saturation 93 % (95-98) L 04/07/18 04:50 ABG Base Excess -5 mEq/L (-2 to 3) L 04/07/18 04:50 Sodium 128 mEq/L (136-145) L 04/09/18 03:47 Carbon Dioxide 18 mEq/L (23-29) L 04/09/18 03:47 BUN 94 mg/dL (8-23) H 04/09/18 03:47 Creatinine 4.99 mg/dL (0.60-1.20) H 04/09/18 03:47 Est GFR ( Amer) 10 (> 60) L 04/09/18 03:47 Est GFR (Non-Af Amer) 8 (> 60) L 04/09/18 03:47 Glucose 129 mg/dL (70-105) H 04/09/18 03:47 POC Glucose 120 mg/dL (70-99) H 04/08/18 21:09 Uric Acid 8.5 mg/dL (2.3-7.6) H 04/06/18 05:15 Calcium 8.3 mg/dL (8.6-10.3) L 04/09/18 03:47 Phosphorus 7.1 mg/dL (2.7-4.5) H 04/09/18 03:47 Creatine Kinase 342 Units/L (30-223) H 04/06/18 05:15 Troponin I 6.53 ng/mL (< 0.04) H* 04/07/18 04:00 Albumin 2.5 g/dL (3.5-5.7) L 04/09/18 03:47 Albumin/Globulin Ratio 1.0 (1.1-2.2) L 04/03/18 04:05 Urine Clarity Turbid (Clear) A 04/07/18 11:20 Urine Protein 100 mg/dL (Neg-Trace) H 04/07/18 11:20 Urine Blood Small (Negative) H 04/07/18 11:20 Urine Bilirubin Moderate (Negative) H 04/07/18 11:20 Ur Leukocyte Esterase Large (Negative) H 04/07/18 11:20 Urine Microscopic RBC 3-5 per hpf (0-3) H 04/07/18 11:20 Urine Microscopic WBC TNTC per hpf (0-3) H 04/07/18 11:20 Ur Squamous Epith Cells Many per lpf (None-Few) H 04/07/18 11:20 Amorphous Sediment Moderate (Few) H 04/03/18 05:37 Urine Mucus Many (Few) H 04/03/18 05:37 Urine Yeast Many per hpf (None Seen) H 04/07/18 11:20 Ur Culture Indicated? NO. (NO) A 04/06/18 13:55 Stool Salmonella PCR DETECTED (Not detect) A* 04/06/18 13:12 - Clinical Findings Intake & Output: Intake & Output 04/08/18 04/08/18 04/09/18 15:59 23:59 07:59 Intake Total 1000 / 1000 772 / 772 Output Total 125 / 125 75 / 75 50 / 50 Balance 875 / 875 697 / 697 -50 / -50 Weight 85.56 kg Consult Discharge Plan - Plan Referrals: Casi Smalls, POLYSOMNOGRAPHY TECHNICIAN [Primary Care Provider] -
[2018-04-09] MEDS: Insulin LISPRO 300 UNITS/3 ML VIAL SQ SCH ×3 (07:49→17:04)
[2018-04-09] MEDS ORDERED: Gabapentin 100 MG CAPSULE PO SCH ×2 (09:00)
[2018-04-09] MEDS ORDERED: Aspirin Enteric Coated 81 MG Tablet PO SCH (09:00)
--- NOTE | 2018-04-09 11:04 | Nephrology Progress Note ---
Date of Encounter: 04/09/18 Time of Encounter: 09:15 - Assessment and Plan (1) GABY (acute kidney injury) Current Visit: Yes Status: Acute Renal function not improved, but I reviewed her chart and appreciate Palliative Care. She is not an ideal candidate even for short term dialysis and she reported to me during morning rounds that she would rather "just go home." So will not initiate dialysis at this time. I recommend hospice for her. Thank you Thank you. (2) CKD (chronic kidney disease) stage 4, GFR 15-29 ml/min Current Visit: Yes Status: Chronic (3) Hyponatremia Current Visit: Yes Status: Acute (4) Hyperphosphatemia Current Visit: Yes Status: Acute (5) Anemia Current Visit: Yes Status: Chronic Qualifiers: Anemia type: due to chronic kidney disease Chronic kidney disease stage: stage 4 (severe) Qualified Code(s): N18.4 - Chronic kidney disease, stage 4 ( severe); D63.1 - Anemia in chronic kidney disease Subjective Principal diagnosis: UTI Interval history: Pt was s/e earlier today in the ICU unit. She was by herself during my morning rounds, she reiterated to me that she does not want dialysis. Objective - Vital Signs Vital signs: Vital Signs Temp Pulse Resp BP Pulse Ox 04/09/18 09:00 92 12 104/55 99 04/09/18 08:00 92 04/09/18 07:23 96.9 F L 04/09/18 06:00 101 18 101/55 93 04/09/18 05:00 92 16 104/95 98 04/09/18 04:11 97.3 F L 04/09/18 04:00 92 18 110/84 94 04/09/18 03:00 92 16 96/54 97 04/09/18 02:00 99 16 96 04/09/18 01:00 115 18 92/58 95 04/09/18 00:16 97.5 F L 04/09/18 00:00 117 18 80/47 93 04/08/18 23:45 108 04/08/18 23:00 92 20 106/66 93 04/08/18 22:00 80 18 99/55 92 04/08/18 21:00 87 18 146/66 97 04/08/18 20:00 97.5 F L 89 20 107/56 96 04/08/18 19:00 89 18 97/59 99 04/08/18 18:24 16 99 04/08/18 18:00 81 20 95/45 92 04/08/18 17:00 81 18 95/40 97 04/08/18 16:00 81 18 93/70 96 04/08/18 15:30 97.3 F L 04/08/18 15:00 79 16 81/48 99 04/08/18 14:00 78 16 91/67 99 04/08/18 13:00 78 16 82/54 100 04/08/18 12:00 74 16 95/57 100 04/08/18 11:58 76 Intake and Output 04/08/18 04/09/18 04/09/18 23:59 07:59 15:59 Intake Total 772 / 772 Output Total 75 / 75 50 / 50 Balance 697 / 697 -50 / -50 Intake: IV Fluids 652 / 652 0.9 % Sodium Chloride 1,000 ML 525 / 525 @ 75 mls/hr IVC .[id number] [facility] Rx #:[id number] Heparin 25,000 UNIT/500 ML D5W 117 / 117 25,000 unit In 500 ml @ 14 UNIT /KG/HR 20.72 mls/hr IVC .Q24H CHARLY Rx#:[id number] Rocephin 1,000 MG In Water for inj. (sterile) 10 ML @ 600 mls/ hr IVP Q24H [facility]LY Rx#:[id number] Oral 120 / 120 Output: Catheter 75 / 75 50 / 50 Other: Meal Dinner Percent of Meal Consumed 0% # Bowel Movements 0 Weight 85.56 kg Blood Glucose* 84 126 Patient Weight 04/09/18 23:59 Weight 85.56 kg - General Appearance Exam: General appearance: Present: well-developed, appears started age, fatigue, frail EENT: Present: ATNC, PERRL, mucous membranes moist Neck: Present: supple Respiratory: Present: clear Cardiology: Present: edema (trace ankle nonpitting with wrinkles noted b/l), regular rate, normal S1, normal S2 Gastrointestinal: Present: normoactive bowel sounds, no tenderness, no guarding Integumentary: Present: warm and dry Neurologic: Present: no focal deficit, no asterixis, disoriented Musculoskeletal: Present: no erythema, no cyanosis, no clubbing Psychiatric: Present: mood/affect appropriate, cooperative - Lab 04/09/18 03:47 04/09/18 03:47 Most recent lab results ABG pH 7.30 pH Units (7.32-7.45) L 04/07/18 04:50 ABG pCO2 44 mmHg (35-45) 04/07/18 04:50 ABG pO2 75 mmHg (85-104) L 04/07/18 04:50 ABG HCO3 22 mEq/L (21-27) 04/07/18 04:50 ABG O2 Saturation 93 % (95-98) L 04/07/18 04:50 Calcium 8.3 mg/dL (8.6-10.3) L 04/09/18 03:47 Phosphorus 7.1 mg/dL (2.7-4.5) H 04/09/18 03:47 Magnesium 1.7 mg/dL (1.6-2.6) 04/09/18 03:47 Urine Sodium 29.1 mEq/L 04/07/18 11:20 Consult Discharge Plan - Plan Referrals: Casi Smalls, ASSET SPECIALIST [Primary Care Provider] -
--- NOTE | 2018-04-09 11:53 | Palliative Progress Note ---
Date of Encounter: 04/09/18 Time of Encounter: 11:50 - Assessment and plan (1) Goals of care, counseling/discussion Current Visit: Yes Status: Acute Assessment and plan: Met with pt's daughter Julio, and updated on pt's medical condition and prognosis. Julio understands that now the renal function has reached a plateau, and states family is now ready for discharge home on hospice. Completed discussion on hospice services, explained the need for the family to be caregiver which Julio states they will provide for the most part. Also explained that pt's medication will be reconciled once pt is admitted at home. [facility] was called for referral. (2) Lower extremity pain Current Visit: Yes Status: Chronic Assessment and plan: Patient is on acetaminophen and Gabapentin. denies pain today. Qualifiers: Laterality: bilateral Qualified Code(s): M79.604 - Pain in right leg; M79.605 - Pain in left leg (3) Dzanf-hn-qvnwwzn kidney injury Current Visit: Yes Status: Acute Assessment and plan: Total urine output was 375 ml yesterday. Creatinine today is 3.9, seemed to have reached a plateau. Patient is not a candidate for short term dialysis per nephrology. Qualifiers: Acute renal failure type: unspecified Chronic kidney disease stage: unspecified stage Qualified Code(s): N17.9 - Acute kidney failure, unspecified ; N18.9 - Chronic kidney disease, unspecified (4) UTI (urinary tract infection) Current Visit: No Status: Acute Assessment and plan: on ABX per primary team. Qualifiers: Urinary tract infection type: acute cystitis Hematuria presence: with hematuria Qualified Code(s): N30.01 - Acute cystitis with hematuria (5) NSTEMI (non-ST elevation myocardial infarction) Current Visit: No Status: Acute Assessment and plan: off heparin drip. Per cardiology medical therapy only. (6) Salmonella Current Visit: Yes Status: Acute Assessment and plan: on ABX per primary team. - Time Spent With Patient Total time spent is greater than 50% in coordination of care (as documented) at patient's floor/unit and/or counseling patient: Greater than 35 minutes - Subjective Interval history: Patient this morning was very confused, removing her clothes. She can be redirected for a short time. She states she wants to go home. Daughter Julio at the bedside. - Constitutional Vitals: Abnormal lab results RBC 2.93 M/mcL (3.82-4.97) L 04/09/18 03:47 Hgb 8.5 g/dL (11.5-15.4) L 04/09/18 03:47 Hct 27.2 % (35.3-44.9) L 04/09/18 03:47 MCHC 31.3 g/dL (31.6-35.5) L 04/09/18 03:47 RDW 15.5 % (11.5-14.5) H 04/09/18 03:47 ABG pH 7.30 pH Units (7.32-7.45) L 04/07/18 04:50 ABG pO2 75 mmHg (85-104) L 04/07/18 04:50 ABG O2 Saturation 93 % (95-98) L 04/07/18 04:50 ABG Base Excess -5 mEq/L (-2 to 3) L 04/07/18 04:50 Sodium 128 mEq/L (136-145) L 04/09/18 03:47 Carbon Dioxide 18 mEq/L (23-29) L 04/09/18 03:47 BUN 94 mg/dL (8-23) H 04/09/18 03:47 Creatinine 4.99 mg/dL (0.60-1.20) H 04/09/18 03:47 Est GFR ( Amer) 10 (> 60) L 04/09/18 03:47 Est GFR (Non-Af Amer) 8 (> 60) L 04/09/18 03:47 Glucose 129 mg/dL (70-105) H 04/09/18 03:47 POC Glucose 126 mg/dL (70-99) H 04/09/18 07:23 Uric Acid 8.5 mg/dL (2.3-7.6) H 04/06/18 05:15 Calcium 8.3 mg/dL (8.6-10.3) L 04/09/18 03:47 Phosphorus 7.1 mg/dL (2.7-4.5) H 04/09/18 03:47 Creatine Kinase 342 Units/L (30-223) H 04/06/18 05:15 Troponin I 6.53 ng/mL (< 0.04) H* 04/07/18 04:00 Albumin 2.5 g/dL (3.5-5.7) L 04/09/18 03:47 Albumin/Globulin Ratio 1.0 (1.1-2.2) L 04/03/18 04:05 Urine Clarity Turbid (Clear) A 04/07/18 11:20 Urine Protein 100 mg/dL (Neg-Trace) H 04/07/18 11:20 Urine Blood Small (Negative) H 04/07/18 11:20 Urine Bilirubin Moderate (Negative) H 04/07/18 11:20 Ur Leukocyte Esterase Large (Negative) H 04/07/18 11:20 Urine Microscopic RBC 3-5 per hpf (0-3) H 04/07/18 11:20 Urine Microscopic WBC TNTC per hpf (0-3) H 04/07/18 11:20 Ur Squamous Epith Cells Many per lpf (None-Few) H 04/07/18 11:20 Amorphous Sediment Moderate (Few) H 04/03/18 05:37 Urine Mucus Many (Few) H 04/03/18 05:37 Urine Yeast Many per hpf (None Seen) H 04/07/18 11:20 Ur Culture Indicated? NO. (NO) A 04/06/18 13:55 Stool Salmonella PCR DETECTED (Not detect) A* 04/06/18 13:12 Exam: General: alert, confused, No Apparent Distress HEENT: Atraumatic, Normocephaly, Mucus Membranes Moist Neck: No JVD, Normal carotid pulses Cardiac: Reg Rate and Rhythm, Normal S1 and S2, No Murmur Lungs: Normal Breath Sounds, No Wheeze, Rales, Rhonchi Neuro: Alert and responsive, orieted x3 (confused at times) Abdomen: Soft, Non-Tender Skin: No rashes noted on visualized skin Musculoskeletal: bilateral knee pain, tenderness on palpation and movement of feet Extremities: Other (1+ BLE edema) Palliative Quality Palliative Quality: Screen for Code Status: Yes, Screen for Goals of Care: Yes, Screen for Pain: Yes, If Pain Regimen Started, Initiate Bowel Regimen: Yes, Screen for Nausea/Vomitting: Yes Code Status: 04/06/18 19:43 CODE [Resuscitation Status: Active] [RES] Stat Comment: Resuscitation Status: [id number] - Labs CBC & Chem 7: 04/09/18 03:47 04/09/18 03:47 Labs: Laboratory Results - last 24 hr 04/08/18 04/08/18 04/08/18 15:44 19:43 21:09 WBC RBC Hgb Hct MCV MCH MCHC RDW Plt Count MPV Immature Gran % Seg Neutrophils % Lymphocytes % Monocytes % Eosinophils % Basophils % Neutrophils # Lymphocytes # Monocytes # Eosinophils # Basophils # Sodium Potassium Chloride Carbon Dioxide BUN Creatinine Est GFR ( Amer) Est GFR (Non-Af Amer) BUN/Creatinine Ratio Glucose POC Glucose 86 81 120 H Calculated Osmolality Calcium Phosphorus Magnesium Albumin 04/09/18 04/09/18 04/09/18 03:47 03:47 03:47 WBC 9.3 RBC 2.93 L Hgb 8.5 L Hct 27.2 L MCV 92.8 MCH 29.0 MCHC 31.3 L RDW 15.5 H Plt Count 303 MPV 10.7 Immature Gran % 2.2 Seg Neutrophils % 80.1 Lymphocytes % 6.9 Monocytes % 10.1 Eosinophils % 0.5 Basophils % 0.2 Neutrophils # 7.5 Lymphocytes # 0.6 Monocytes # 0.9 Eosinophils # 0.1 Basophils # 0.0 Sodium 128 L Potassium 4.5 Chloride 98 Carbon Dioxide 18 L BUN 94 H Creatinine 4.99 H Est GFR ( Amer) 10 L Est GFR (Non-Af Amer) 8 L BUN/Creatinine Ratio 19 Glucose 129 H POC Glucose Calculated Osmolality 297 Calcium 8.3 L Phosphorus 7.1 H Magnesium 1.7 Albumin 2.5 L 04/09/18 07:23 WBC RBC Hgb Hct MCV MCH MCHC RDW Plt Count MPV Immature Gran % Seg Neutrophils % Lymphocytes % Monocytes % Eosinophils % Basophils % Neutrophils # Lymphocytes # Monocytes # Eosinophils # Basophils # Sodium Potassium Chloride Carbon Dioxide BUN Creatinine Est GFR ( Amer) Est GFR (Non-Af Amer) BUN/Creatinine Ratio Glucose POC Glucose 126 H Calculated Osmolality Calcium Phosphorus Magnesium Albumin - ABG Interpretation ABG results: ABG ABG pH 7.30 pH Units (7.32-7.45) L 04/07/18 04:50 ABG pCO2 44 mmHg (35-45) 04/07/18 04:50 ABG pO2 75 mmHg (85-104) L 04/07/18 04:50 ABG O2 Saturation 93 % (95-98) L 04/07/18 04:50 PT/INR, D-dimer PT 11.2 Seconds (9.4-12.1) 04/06/18 15:13 Consult Discharge Plan - Plan Referrals: Casi Smalls, FLAQUITA [Primary Care Provider] -
[2018-04-09] MEDS ORDERED: cefTRIAXone 1,000 MG in Water for inj. (sterile) 20 ML 10 ML IVP SCH (12:00)
[2018-04-09] MEDS ORDERED: *HR* LORazepam Oral Conc 2 MG/ML SL PRN (13:14)
[2018-04-09] MEDS ORDERED: Haloperidol Oral Conc 10 MG/5 ML UDC PO PRN (13:14)
[2018-04-09] MEDS ORDERED: *HR* Heparin 5,000 UNIT/ML VIAL SQ SCH (18:00)
[2018-04-09] MEDS ORDERED: D5% in Water 1,000 ML IVC PRN (19:29)
[2018-04-09] MEDS ORDERED: Ipratropium/Albuterol Neb 3 ML IH PRN (19:29)
[2018-04-09] MEDS ORDERED: Dextrose Gel 15 GM/37.5 ML TUBE PO PRN ×2 (19:29)
[2018-04-09] MEDS ORDERED: *HR* Dextrose 50 % in Water (Syg) 50 ML SYRINGE IVP PRN (19:29)
[2018-04-09] MEDS ORDERED: Naloxone 0.4 MG/ML INJ IVP PRN (19:29)
[2018-04-09] MEDS ORDERED: Insulin DETEMIR 100 UNIT/ML X5UNITS SQ SCH (21:00)
[2018-04-09] MEDS ORDERED: Insulin LISPRO 300 UNITS/3 ML VIAL SQ SCH (21:00)
[2018-04-10] MEDS: Acetaminophen 325 MG TABLET PO SCH ×3 (00:22→11:15)
[2018-04-10 05:05] LABS: Calcium 8.4 mg/dL (8.6-10.3); Magnesium 1.9 mg/dL (1.6-2.6); Phosphorous 8.5 mg/dL (2.7-4.5); Potassium 5.1 mEq/L (3.5-5.1)
[2018-04-10] MEDS ORDERED: *HR* Heparin 5,000 UNIT/ML VIAL SQ SCH (06:00)
[2018-04-10] MEDS ORDERED: Levothyroxine 25 MCG TABLET PO SCH (06:30)
[2018-04-10 07:13] VITALS: BP 100/52
[2018-04-10] MEDS ORDERED: Aspirin Enteric Coated 81 MG Tablet PO SCH (09:00)
[2018-04-10 09:12] LABS: Basophils % 0.4 %; Eosinophils % 0.1 %; Hemoglobin 8.4 g/dL (11.5-15.4); Immature Granulocytes % 3.7 % (0-4); Lymphocytes % 10.5 %; Mean Corpuscular Hemoglobin 28.4 pg (28.0-33.3); Mean Corpuscular Volume 94.6 fL (83.0-100.0); Mean Platelet Volume 11.2 fL (9.4-12.4); Monocytes # 0.6 K/mcL (0.0-1.3); Monocytes % 6.5 %; Neutrophils # 7.7 K/mcL (1.6-8.9); Platelet Count 327 K/mcL (140-400); Red Blood Count 2.96 M/mcL (3.82-4.97); Red Cell Distribution Width 15.7 % (11.5-14.5); Segmented Neutrophils % 78.8 %
[2018-04-10] MEDS: Insulin LISPRO 300 UNITS/3 ML VIAL SQ SCH ×2 (09:56→11:55)
--- NOTE | 2018-04-10 09:57 | Event Note ---
Date of Encounter: 04/10/18 Time of Encounter: 09:56 Nephrology Update Discussed with the Palliative care team: pt going home on Hospice, which I agree to be best. So will sign-off at this point. Thank you for having consulted the [facility] group.
[2018-04-10] MEDS ORDERED: MORPHINE SUL Oral CONC 10 MG/0.5 ML ORAL.SYG PO PRN ×2 (09:59→10:10)
--- NOTE | 2018-04-10 10:14 | Palliative Progress Note ---
Date of Encounter: 04/10/18 Time of Encounter: 09:00 - Assessment and plan (1) Goals of care, counseling/discussion Current Visit: Yes Status: Acute Assessment and plan: Met with son-in-law at the bedside, he expressed concern over the fact that pt is sleeping more today, and that her oral intake is very reduced. Son was educated about the dying process and what to expect. He was more calm and reassured. Family is still agreeable for discharge home today with [facility]. DME to be delivered home in the morning. (2) Lower extremity pain Current Visit: Yes Status: Chronic Assessment and plan: Patient was grimacing when her legs were touched. she received tylenol at 6am. will start Morphine 5mg SL q4hrs prn Qualifiers: Laterality: bilateral Qualified Code(s): M79.604 - Pain in right leg; M79.605 - Pain in left leg (3) Delirium Current Visit: Yes Status: Acute Assessment and plan: Patient was very agitated yesterday and received a dose of Haldol at 13:30, and was calm afterwards. Will continue Haldol prn for agitation. (4) Rtcju-mz-juabskc kidney injury Current Visit: Yes Status: Acute Assessment and plan: Total urine output was 375 ml yesterday. Creatinine today is 3.9, seemed to have reached a plateau. Patient is not a candidate for short term dialysis per nephrology. Qualifiers: Acute renal failure type: unspecified Chronic kidney disease stage: unspecified stage Qualified Code(s): N17.9 - Acute kidney failure, unspecified ; N18.9 - Chronic kidney disease, unspecified (5) UTI (urinary tract infection) Current Visit: No Status: Acute Assessment and plan: on Rocephin, may change to oral on discharge if pt awakes and swallows Qualifiers: Urinary tract infection type: acute cystitis Hematuria presence: with hematuria Qualified Code(s): N30.01 - Acute cystitis with hematuria (6) NSTEMI (non-ST elevation myocardial infarction) Current Visit: No Status: Acute (7) Salmonella Current Visit: Yes Status: Acute - Time Spent With Patient Total time spent is greater than 50% in coordination of care (as documented) at patient's floor/unit and/or counseling patient: Greater than 35 minutes - Subjective Interval history: Patient this morning was sleeping, not awaking to name calling or touch. On exam , she was grimacing when her feet were touched or moved. Son in law was present at the bedside. - Constitutional Vitals: Abnormal lab results RBC 2.96 M/mcL (3.82-4.97) L 04/10/18 07:37 Hgb 8.4 g/dL (11.5-15.4) L 04/10/18 07:37 Hct 28.0 % (35.3-44.9) L 04/10/18 07:37 MCHC 30.0 g/dL (31.6-35.5) L 04/10/18 07:37 RDW 15.7 % (11.5-14.5) H 04/10/18 07:37 ABG pH 7.30 pH Units (7.32-7.45) L 04/07/18 04:50 ABG pO2 75 mmHg (85-104) L 04/07/18 04:50 ABG O2 Saturation 93 % (95-98) L 04/07/18 04:50 ABG Base Excess -5 mEq/L (-2 to 3) L 04/07/18 04:50 Sodium 130 mEq/L (136-145) L 04/10/18 04:31 Carbon Dioxide 11 mEq/L (23-29) L 04/10/18 04:31 BUN 105 mg/dL (8-23) H 04/10/18 04:31 Creatinine 5.12 mg/dL (0.60-1.20) H 04/10/18 04:31 Est GFR ( Amer) 10 (> 60) L 04/10/18 04:31 Est GFR (Non-Af Amer) 8 (> 60) L 04/10/18 04:31 Glucose 124 mg/dL (70-105) H 04/10/18 04:31 POC Glucose 135 mg/dL (70-99) H 04/09/18 20:23 Calculated Osmolality 304 (280-300) H 04/10/18 04:31 Uric Acid 8.5 mg/dL (2.3-7.6) H 04/06/18 05:15 Calcium 8.4 mg/dL (8.6-10.3) L 04/10/18 04:31 Phosphorus 8.5 mg/dL (2.7-4.5) H 04/10/18 04:31 Creatine Kinase 342 Units/L (30-223) H 04/06/18 05:15 Troponin I 6.53 ng/mL (< 0.04) H* 04/07/18 04:00 Albumin 2.5 g/dL (3.5-5.7) L 04/09/18 03:47 Albumin/Globulin Ratio 1.0 (1.1-2.2) L 04/03/18 04:05 Urine Clarity Turbid (Clear) A 04/07/18 11:20 Urine Protein 100 mg/dL (Neg-Trace) H 04/07/18 11:20 Urine Blood Small (Negative) H 04/07/18 11:20 Urine Bilirubin Moderate (Negative) H 04/07/18 11:20 Ur Leukocyte Esterase Large (Negative) H 04/07/18 11:20 Urine Microscopic RBC 3-5 per hpf (0-3) H 04/07/18 11:20 Urine Microscopic WBC TNTC per hpf (0-3) H 04/07/18 11:20 Ur Squamous Epith Cells Many per lpf (None-Few) H 04/07/18 11:20 Amorphous Sediment Moderate (Few) H 04/03/18 05:37 Urine Mucus Many (Few) H 04/03/18 05:37 Urine Yeast Many per hpf (None Seen) H 04/07/18 11:20 Ur Culture Indicated? NO. (NO) A 04/06/18 13:55 Stool Salmonella PCR DETECTED (Not detect) A* 04/06/18 13:12 Exam: General: sleeping, No Apparent Distress HEENT: Atraumatic, Normocephaly, Mucus Membranes Moist Neck: No JVD, Normal carotid pulses Cardiac: Reg Rate and Rhythm, Normal S1 and S2, No Murmur Lungs: Normal Breath Sounds, No Wheeze, Rales, Rhonchi Neuro: Alert and responsive, orieted x3 (confused at times) Abdomen: Soft, Non-Tender Skin: No rashes noted on visualized skin Musculoskeletal: bilateral knee pain, tenderness on palpation and movement of feet Extremities: Other (1+ BLE edema) Palliative Quality Palliative Quality: Screen for Code Status: Yes, Screen for Goals of Care: Yes, Screen for Pain: Yes, If Pain Regimen Started, Initiate Bowel Regimen: Yes, Screen for Nausea/Vomitting: Yes Code Status: 04/06/18 19:43 CODE [Resuscitation Status: Active] [RES] Stat Comment: Resuscitation Status: [id number] - Labs CBC & Chem 7: 04/10/18 07:37 04/10/18 04:31 Labs: Laboratory Results - last 24 hr 04/09/18 04/09/18 04/09/18 11:53 16:22 20:23 WBC RBC Hgb Hct MCV MCH MCHC RDW Plt Count MPV Immature Gran % Seg Neutrophils % Lymphocytes % Monocytes % Eosinophils % Basophils % Neutrophils # Lymphocytes # Monocytes # Eosinophils # Basophils # Sodium Potassium Chloride Carbon Dioxide BUN Creatinine Est GFR ( Amer) Est GFR (Non-Af Amer) BUN/Creatinine Ratio Glucose POC Glucose 133 H 128 H 135 H Calculated Osmolality Calcium Phosphorus Magnesium Specimen Rejected 04/10/18 04/10/18 04/10/18 04:31 04:31 07:37 WBC 9.8 RBC 2.96 L Hgb 8.4 L Hct 28.0 L MCV 94.6 MCH 28.4 MCHC 30.0 L RDW 15.7 H Plt Count 327 MPV 11.2 Immature Gran % 3.7 Seg Neutrophils % 78.8 Lymphocytes % 10.5 Monocytes % 6.5 Eosinophils % 0.1 Basophils % 0.4 Neutrophils # 7.7 Lymphocytes # 1.0 Monocytes # 0.6 Eosinophils # 0.0 Basophils # 0.0 Sodium 130 L Potassium 5.1 Chloride 99 Carbon Dioxide 11 L BUN 105 H Creatinine 5.12 H Est GFR ( Amer) 10 L Est GFR (Non-Af Amer) 8 L BUN/Creatinine Ratio 21 Glucose 124 H POC Glucose Calculated Osmolality 304 H Calcium 8.4 L Phosphorus 8.5 H Magnesium 1.9 Specimen Rejected Clotted - ABG Interpretation ABG results: ABG ABG pH 7.30 pH Units (7.32-7.45) L 04/07/18 04:50 ABG pCO2 44 mmHg (35-45) 04/07/18 04:50 ABG pO2 75 mmHg (85-104) L 04/07/18 04:50 ABG O2 Saturation 93 % (95-98) L 04/07/18 04:50 PT/INR, D-dimer PT 11.2 Seconds (9.4-12.1) 04/06/18 15:13 Consult Discharge Plan - Plan Referrals: Casi Smalls, JUNIOR ART DIRECTOR [Primary Care Provider] -
[2018-04-10] MEDS ORDERED: cefTRIAXone 1,000 MG in Water for inj. (sterile) 20 ML 10 ML IVP SCH (12:00)
--- NOTE | 2018-04-10 13:52 | Discharge Summary ---
Date of Encounter: 04/10/18 Time of Encounter: 13:50 - Discharge Diagnosis (1) GABY (acute kidney injury) Priority: Primary Status: Acute (2) CKD (chronic kidney disease) stage 4, GFR 15-29 ml/min Priority: Primary Status: Chronic (3) Diarrhea Priority: Primary Status: Resolved Qualifiers: Diarrhea type: infectious Qualified Code(s): A09 - Infectious gastroenteritis and colitis, unspecified (4) Dehydration Priority: Primary Status: Resolved (5) Diabetes mellitus Priority: Secondary Status: Chronic Qualifiers: Diabetes mellitus type: type 2 Diabetes mellitus terminal superintendent insulin use: without care home use Diabetes mellitus complication status: with hypoglycemia Diabetes mellitus complication detail: without coma Qualified Code(s): E11.649 - Type 2 diabetes mellitus with hypoglycemia without coma (6) Essential hypertension Priority: Secondary Status: Chronic (7) Anemia Priority: Secondary Status: Chronic Qualifiers: Anemia type: due to chronic kidney disease Chronic kidney disease stage: stage 4 (severe) Qualified Code(s): N18.4 - Chronic kidney disease, stage 4 ( severe); D63.1 - Anemia in chronic kidney disease (8) UTI (urinary tract infection) Priority: Secondary Status: Acute Qualifiers: Urinary tract infection type: catheter-associated UTI Indwelling urinary catheter type: indwelling urethral catheter Encounter type: initial encounter Qualified Code(s): T83.511A - Infection and inflammatory reaction due to indwelling urethral catheter, initial encounter; N39.0 - Urinary tract infection , site not specified (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 We admitted her to the hospital after she had developed some diarrhea. Subsequently she developed dehydration and acute kidney injury on top of CKD stage IV. She has had long-standing type 2 diabetes mellitus and hypertension. Additionally, she suffers from dementia. It was showing psychotic features during this hospitalization (required Haldol and similar medications). The patient's diarrhea subsided by itself (nothing by mouth diet and IV fluids) . However, we were not able to get this patient eating and drinking satisfactory amounts of foods and fluids. She was not able to increase her urinary output. Palliative care was consulted. They approached the the patient's family, as the patient was not able to make any medical decisions. Eventually, the patient was made DNR/comfort care. [facility] CONDITION AT DISCHARGE: No distress is seen. The patient does not answer my questions. She is bedbound. Skin: Free of rash and discoloration. Respiratory: Normal breath sounds with no crackles and wheezes bilaterally. CV: Heart is regular with no gallop or murmur. GI: Abdomen is flat and soft with no palpable mass or visceromegaly. Neuro exam: There is no focal deficits. Normal speech, swallowing and gait. SEE DISCHARGE ORDERS/MEDICATIONS.. Discharge discussed with: patient, family, nurse, social work, case management - Time Spent with Patient Total time spent providing and/or coordinating discharge services: Greater than 30 minutes (45 minutes..) - Discharge Medications Prescriptions: Haloperidol Oral Conc [Haldol] 2 mg PO TID PRN #10 mls PRN Reason: Agitation MORPHINE SUL Oral CONC [Roxanol Oral Conc] 5 mg PO Q3H PRN 4 Days #10 oral.syg PRN Reason: Pain Home Medications: Timolol Maleate 0.25% 1 drop RIGHT EYE BID 07/03/16 [History] Acetaminophen [Tylenol] 650 mg PO Q6HR tablet 04/10/18 [Rx] Haloperidol Oral Conc [Haldol] 2 mg PO TID PRN #10 mls 04/10/18 [Rx] Ipratropium/Albuterol Neb [Duoneb] 3 ml IH [id number] PRN inhsol 04/10/18 [Rx] MORPHINE SUL Oral CONC [Roxanol Oral Conc] 5 mg PO Q3H PRN 4 Days #10 oral.syg 04/10/18 [Rx] Allergies/Adverse Reactions: 3 Allergy/AdvReac Type Severity Reaction Status Date / Time No Known Allergies Allergy Verified 01/01/18 15:34 Date of admission: 04/06/18 15:45 Primary care physician: Casi Smalls CNP Consults: 04/06/18 17:35 Consult to Pulmonology [CONS] Routine Consulting Provider: [facility] Reason for Consult: Hypotension. Bradycardia. Elevated trops. Acute renal failure Call Completed: No 04/08/18 08:34 Consult to Palliative Care [CONS] Routine Comment: Consulting Provider: [facility] [place] Reason for Consult: advanced care planning Call Completed: Yes 04/08/18 10:35 Consult to Cardiology [CONS] Routine Comment: Consulting Provider: Card[facility] [place] Reason for Consult: nstemi, elevated trop Call Completed: Yes Discharging clinician: Juan Ruff Anticipated date of discharge: 04/10/18 - Constitutional Vitals: Temp Pulse Resp BP Pulse Ox 97.3 F L 90 18 100/52 91 04/10/18 07:07 04/10/18 07:07 04/10/18 07:07 04/10/18 07:07 04/10/18 07:07 General appearance: Present: A&O X 1, no acute distress Exam: xx - Patient Status Disposition: Hospice - Medical Facility Condition: Serious Functional capacity at discharge: bed bound Overall status at discharge: other (HOSPICE) - Discharge Instructions Instructions: Chronic Kidney Disease (GEN), Hospice Care (GEN), Diabetes Mellitus Type 2 in Adults (DC) Follow Up With: Casi Smalls SUPERVISOR PHOTOCOMPOSITION [Primary Care Provider] - - Diet and Activity Activity: other (BED-BOUND; HOSPICE) Diet: diabetic diet - VTE Reasons for not Prescribing Prophylaxis: Treatment not Indicated - Low risk for VTE Deep Vein Thrombosis/Pulmonary Embolism Present on Admission: No
--- NOTE | 2018-04-10 14:16 | Physician Discharge Referral ---
Home Health/Hosp Referral Info Transfer to: Hospice Attending Provider: Jyotsna Ruff MD Provider in Charge Post Discharge: Stunt Person - Diagnosis (1) GABY (acute kidney injury) Priority: Primary Status: Acute (2) CKD (chronic kidney disease) stage 4, GFR 15-29 ml/min Priority: Primary Status: Chronic (3) Diarrhea Priority: Primary Status: Resolved (4) Dehydration Priority: Primary Status: Resolved (5) Diabetes mellitus Priority: Secondary Status: Chronic (6) Essential hypertension Priority: Secondary Status: Chronic (7) Anemia Priority: Secondary Status: Chronic (8) UTI (urinary tract infection) Status: Suspected (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 For more information, call the [email or web address] Tobacco Quit Line at 7-564-YVJM-NOW. - Diet/Nutrition Diet/Nutrition Orders: Regular - Activity Activity Orders: Bedrest - Services Needed Following services are medically necessary services: Nursing, Home Health Aide - Transfer Medications Prescriptions: Haloperidol Oral Conc [Haldol] 2 mg PO TID PRN #10 mls PRN Reason: Agitation MORPHINE SUL Oral CONC [Roxanol Oral Conc] 5 mg PO Q3H PRN 4 Days #10 oral.syg PRN Reason: Pain Home Medications: Timolol Maleate 0.25% 1 drop RIGHT EYE BID 07/03/16 [History] Acetaminophen [Tylenol] 650 mg PO Q6HR tablet 04/10/18 [Rx] Haloperidol Oral Conc [Haldol] 2 mg PO TID PRN #10 mls 04/10/18 [Rx] Ipratropium/Albuterol Neb [Duoneb] 3 ml IH [id number] PRN inhsol 04/10/18 [Rx] MORPHINE SUL Oral CONC [Roxanol Oral Conc] 5 mg PO Q3H PRN 4 Days #10 oral.syg 04/10/18 [Rx] Allergies/Adverse Reactions: 3 Allergy/AdvReac Type Severity Reaction Status Date / Time No Known Allergies Allergy Verified 01/01/18 15:34 Certification: Further, I certify that my clinical findings support that this patient is homebound (i.e. absences from home require considerable and taxing effort and are for medical reasons or sikhism services or infrequently or short duration when for other reasons) because: Homebound Reason: Patient requires assistance of a person or device to safely leave home Attestation: My signature below is to certify that this patient is under my care and that I, or nurse practitioner, or a physician's assistant county engineer working with me, has a face-to -face encounter with this patient.
--- NOTE | 2018-04-10 15:32 | Palliative - Consult Note ---
Date of Encounter: 04/10/18 Time of Encounter: 14:30 - Assessment and Plan (1) Goals of care, counseling/discussion Current Visit: Yes Status: Acute (2) Lower extremity pain Current Visit: Yes Status: Chronic Qualifiers: Laterality: bilateral Qualified Code(s): M79.604 - Pain in right leg; M79.605 - Pain in left leg (3) Delirium Current Visit: Yes Status: Acute (4) Mjydy-na-mktfvqw kidney injury Current Visit: Yes Status: Acute Qualifiers: Acute renal failure type: unspecified Chronic kidney disease stage: unspecified stage Qualified Code(s): N17.9 - Acute kidney failure, unspecified ; N18.9 - Chronic kidney disease, unspecified (5) UTI (urinary tract infection) Current Visit: No Status: Acute Qualifiers: Urinary tract infection type: acute cystitis Hematuria presence: with hematuria Qualified Code(s): N30.01 - Acute cystitis with hematuria (6) NSTEMI (non-ST elevation myocardial infarction) Current Visit: No Status: Acute (7) Salmonella Current Visit: Yes Status: Acute Palliative-CN HPI - Data of Consult Consult date: 04/10/18 Requesting Physician: Juan Ruff Primary Care Provider: Casi Smalls CNP - Consult Narrative Palliative Care/Comfort Measures: Palliative care Reason for consult: Goals of care History of present illness: Ms. Pickett is a 83 year old female with history of tobacco abuse and COPD. She initially presented to [facility] for concern for pneumonia with increased SOB, cough and chills over past week. She had a CTA which revealed bilateral segmental pulmonary arterial emboli, left upper lobe pleural based 4.3 cm mass, medial left lower lobe 3.3 cm mass, partially imaged 17.6 cm midmesenteric mass, aorticopulmonary adenopathy, as well as 3.7 lower left neck mass directly adjacent to the left lobe of the thyroid. On admission pt was anemic, and was transfused 2 PRBCs, remains on heparin drip for PE. 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 CT neck showed metastatic adenopathy. US guided biopsy of supraclavicular lymph node was performed . Patient was seen at the bedside today, she was lying in bed, but agreed to si on the chair and was open to talking. She states her SOB has improved to a point that she feels back to baseline, she complains of swelling of her legs, denies any nausea, vomiting, pain, changes in her urine or BM. CC: Juan Ruff - Time Spent with Patient Time: Total time spent is greater than 50% in coordination of care, face to face with patient (as documented) at patient's floor/unit and/or counseling patient: Greater than 70 minutes Past Med Surg Social Fam HX - Past Medical History Medical history: cancer, coronary artery disease, diabetes, hypertension, myocardial infarction, renal disease Additional medical history: Gout Psychiatric history: no psych history - Past Surgical History Surgical History: cancer surgery, coronary bypass (CABG) - Social History Smoking Status: Former smoker Smokeless Tobacco Status: No Alcohol use: none Drug use: none Medications and Allergies Timolol Maleate 0.25% 1 drop RIGHT EYE BID 07/03/16 [History] Acetaminophen [Tylenol] 650 mg PO Q6HR tablet 04/10/18 [Rx] Haloperidol Oral Conc [Haldol] 2 mg PO TID PRN #10 mls 04/10/18 [Rx] Ipratropium/Albuterol Neb [Duoneb] 3 ml IH [id number] PRN inhsol 04/10/18 [Rx] MORPHINE SUL Oral CONC [Roxanol Oral Conc] 5 mg PO Q3H PRN 4 Days #10 oral.syg 04/10/18 [Rx] 3 Allergy/AdvReac Type Severity Reaction Status Date / Time No Known Allergies Allergy Verified 01/01/18 15:34 Palliative Care-Exam - Constitutional Vitals: Temp Pulse Resp BP Pulse Ox 97.3 F L 90 18 100/52 91 04/10/18 07:07 04/10/18 07:07 04/10/18 07:07 04/10/18 07:07 04/10/18 07:07 Internal Medicine - CN: Reslt - Labs CBC & Chem 7: 04/10/18 07:37 04/10/18 04:31 Labs: Short CBC 04/10/18 Range/Units 07:37 WBC 9.8 (4.3-11.1) K/mcL Hgb 8.4 L (11.5-15.4) g/dL Hct 28.0 L (35.3-44.9) % Plt Count 327 (140-400) K/mcL Neutrophils # 7.7 (1.6-8.9) K/mcL BMP 04/10/18 04:31 Sodium 130 L Potassium 5.1 Chloride 99 Carbon Dioxide 11 L BUN 105 H Creatinine 5.12 H Glucose 124 H Calcium 8.4 L - ABG Interpretation ABG results: ABG ABG pH 7.30 pH Units (7.32-7.45) L 04/07/18 04:50 ABG pCO2 44 mmHg (35-45) 04/07/18 04:50 ABG pO2 75 mmHg (85-104) L 04/07/18 04:50 ABG O2 Saturation 93 % (95-98) L 04/07/18 04:50 PT/INR, D-dimer PT 11.2 Seconds (9.4-12.1) 04/06/18 15:13 Consult Discharge Plan - Plan Instructions: Chronic Kidney Disease (GEN), Hospice Care (GEN), Diabetes Mellitus Type 2 in Adults (DC) Referrals: Casi Smalls, COAT REPAIR INSPECTOR [Primary Care Provider] - Prescriptions: Haloperidol Oral Conc [Haldol] 2 mg PO TID PRN #10 mls PRN Reason: Agitation MORPHINE SUL Oral CONC [Roxanol Oral Conc] 5 mg PO Q3H PRN 4 Days #10 oral.syg PRN Reason: Pain Palliative Quality Palliative Quality: Screen for Code Status: Yes, Screen for Goals of Care: Yes, Screen for Pain: Yes, If Pain Regimen Started, Initiate Bowel Regimen: Yes, Screen for Nausea/Vomitting: Yes Code Status: 04/06/18 19:43 CODE [Resuscitation Status: Active] [RES] Stat Comment: Resuscitation Status: [id number]
== END 2018-04-10 17:32 | disposition hospice, inpatient (51) | DRG 280 ==
LOC: EMEROOARM 03:43 → 2ANU 03:43 → SUATTDRO 06:29 → 2ANU 06:50 → ICNU 04-06 15:44 → SUATTDRO 04-06 15:45 → 2ANU 04-09 18:07
PROVIDERS: ADMIT Family Medicine; ATTEND Internal Medicine